=== PATIENT | female | born 1940 | race Caucasian/White ===

== ENCOUNTER 2023-11-30 13:30 | Outpatient (AMB) | payer MEDICARE, SELFPAY ==
[2023-11-30 13:31] VITALS: BP 136/68; PULSE 73; O2SAT 98; BMI 27.1
--- NOTE | 2023-11-30 13:31 | HO.NEPHOV ---
HPI HPI Comments History of Present Illness Details 83 yr old woman with HTN And DM h/o CVA with left sided weakness h/o Gout PFSH Surgical History S/P removal of cervix H/O carotid endarterectomy Family History Sister Diabetes mellitus Brother Hiatal hernia Sister Edema Father Myocardial infarction Social History Patient Tobacco Use Status: Former Tobacco user Vital Signs 11/30/23 13:31 Height 5 ft 2 in Weight 148 lb 2 oz BMI 27.1 BP 136/68 Blood Pressure Location Lt brachial Position Sitting Pulse 73 Pulse Source Pulse Oximeter Pulse Oximetry (%) 98 Oxygen Delivery Method Room Air Physical Exam Vital Signs: Last Vital Signs Pulse 73 11/30/23 13:31 BP 136/68 11/30/23 13:31 Pulse Ox 98 11/30/23 13:31 Oxygen Delivery Method Room Air 11/30/23 13:31 BMI result Body Mass Index 27.1 Const General: comfortable Nutritional Appearance: well nourished Orientation/consciousness: patient oriented x3 HEENT Head: No normal to inspection Mouth: moist mucous membranes Neck Neck: Yes supple and Yes no JVD Resp Auscultation: clear to auscultation bilaterally, no rales and rub present Cardio Jugular venous distension: no JVD Palpation: no palpable S3 and no palpable S4 Heart sounds: no rubs GI Palpation (GI): Soft to palpation and nontender Percussion: No Fluid wave present General: Yes no CVA tenderness Back/Spine/Pelvis Back: no CVA tenderness Skin General skin exam: no rashes or lesions noted Neuro General: patient oriented x3 Extrem General: Yes no pedal edema and No clubbing Assessment & Plan Assessment & Plan (1) CKD (chronic kidney disease): Code(s): N18.9 - Chronic kidney disease, unspecified Plan CKD 3 in a setting of HTN And DM Baseline creatinine is around 1.9 and has remained stable BP is well controlled Maintian BP < 130/80 and A1C < 7% Continue to avoid nephrotoxins including NSAIDS As for gout, stay on low purine diet Can use prednisone during acute attacks. ( Did not tolerate Colchicine in the past) Orders: Orders Comprehensive Met. Panel 1 Week N18.9 - Chronic kidney disease, unspecified Coding Level of Care Code Est Pt Level 4 (84263) Diagnoses CKD (chronic kidney disease) N18.9 Results Reviewed Results Reviewed: Labs pending Nephrology Results: No Data to Display
== END 2023-11-30 13:50 | disposition home or self-care (01) ==
PROVIDERS: PCP Family Medicine; Visit Provider Internal Medicine Hypertension Specialist
DX: N18.9 Chronic kidney disease, unspecified (principal)
CPT/HCPCS: 99214

== ENCOUNTER → 2023-11-30 13:30 | Outpatient (BNVA) | payer MEDICARE, SELFPAY | PROVIDERS: PCP Family Medicine; Visit Provider Internal Medicine Hypertension Specialist | DX: E11.22 Type 2 diabetes mellitus with diabetic chronic kidney disease (principal); I12.9 Hypertensive chronic kidney disease with stage 1 through stage 4 chronic kidney disease, or unspecified chronic kidney disease; N18.9 Chronic kidney disease, unspecified | CPT/HCPCS: 99212 ==

== ENCOUNTER 2024-05-01 10:31 | Outpatient (AMB) | payer MEDICARE, SELFPAY ==
--- NOTE | 2024-05-01 10:35 | HO.NEPHOV ---
Vital Signs 05/01/24 10:36 05/01/24 10:47 Height 5 ft 2 in Weight 148 lb BMI 27.1 BP 148/74 H 130/80 Blood Pressure Location Rt brachial Rt brachial Position Sitting Sitting Pulse 69 Pulse Source Pulse Oximeter Pulse Oximetry (%) 100 Oxygen Delivery Method Room Air Intake Visit Reasons: / APRIL/ Unable to reach Knit Goods Mender Required: No Accompanied by: Daughter Allergies amitriptyline Allergy (Verified 05/01/24 10:39) Rash atorvastatin [From Lipitor] Allergy (Verified 05/01/24 10:39) Rash colchicine Allergy (Verified 05/01/24 10:39) Diarrhea hydrochlorothiazide Allergy (Verified 05/01/24 10:39) Rash NSAIDS (Non-Steroidal Anti-Inflamma Allergy (Verified 05/01/24 10:39) Unknown rosuvastatin [From Crestor] Allergy (Verified 05/01/24 10:39) Rash sulfamethoxazole [From Bactrim] Allergy (Verified 05/01/24 10:39) Rash trimethoprim [From Bactrim] Allergy (Verified 05/01/24 10:39) Rash HPI Comments Details: 83 yr old woman with HTN and DM h/o CVA with left sided weakness h/o Gout 05/01/2024. Overall doing well. No new issues today. Accompanied by her daughter PFSH Surgical History S/P removal of cervix H/O carotid endarterectomy Family History Sister Diabetes mellitus Brother Hiatal hernia Sister Edema Father Myocardial infarction Social History Patient Tobacco Use Status: Former Tobacco user Physical Exam Vital Signs: Last Vital Signs Pulse 69 05/01/24 10:36 BP 130/80 05/01/24 10:47 Pulse Ox 100 05/01/24 10:36 Oxygen Delivery Method Room Air 05/01/24 10:36 BMI result Body Mass Index 27.1 Const General: comfortable Nutritional Appearance: well nourished Orientation/consciousness: patient oriented x3 HEENT Head: No normal to inspection Mouth: moist mucous membranes Neck Neck: Yes supple and Yes no JVD Resp Auscultation: clear to auscultation bilaterally, no rales and rub present Cardio Jugular venous distension: no JVD Palpation: no palpable S3 and no palpable S4 Heart sounds: no rubs GI Palpation (GI): Soft to palpation and nontender Percussion: No Fluid wave present General: Yes no CVA tenderness Back/Spine/Pelvis Back: no CVA tenderness Skin General skin exam: no rashes or lesions noted Neuro General: patient oriented x3 Extrem General: Yes no pedal edema and No clubbing Results Reviewed Results Reviewed: Labs pending Nephrology Results: No Data to Display Assessment & Plan Assessment & Plan (1) CKD (chronic kidney disease): Code(s): N18.9 - Chronic kidney disease, unspecified Category: Medical Plan CKD 3 in a setting of HTN And DM Baseline creatinine was around 1.9 Repeat labs are not available. We will track down BP is well controlled Maintain BP < 130/80 and A1C < 7% Continue to avoid nephrotoxins including NSAIDS As for gout, stay on low purine diet Can use prednisone during acute attacks. ( Did not tolerate Colchicine in the past) Orders: Orders Basic Metabolic Panel Today N18.9 - Chronic kidney disease, unspecified Complete Blood Count Auto Diff Today N18.9 - Chronic kidney disease, unspecified Coding Level of Care Code Est Pt Level 4 (84602) Diagnoses CKD (chronic kidney disease) N18.9
[2024-05-01 10:36] VITALS: BP 148/74; PULSE 69; O2SAT 100; BMI 27.1
[2024-05-01 10:47] VITALS: BP 130/80
== END 2024-05-01 10:51 | disposition home or self-care (01) ==
PROVIDERS: PCP Family Medicine; Visit Provider Internal Medicine Hypertension Specialist
DX: N18.9 Chronic kidney disease, unspecified (principal)
CPT/HCPCS: 99214

== ENCOUNTER → 2024-05-01 10:31 | Outpatient (BNVA) | payer MEDICARE, SELFPAY | PROVIDERS: PCP Family Medicine; Visit Provider Internal Medicine Hypertension Specialist | DX: I12.9 Hypertensive chronic kidney disease with stage 1 through stage 4 chronic kidney disease, or unspecified chronic kidney disease (principal); E11.22 Type 2 diabetes mellitus with diabetic chronic kidney disease; N18.30 Chronic kidney disease, stage 3 unspecified | CPT/HCPCS: 99212 ==

== ENCOUNTER 2024-09-25 10:21 | Outpatient (AMB) | payer MEDICARE, SELFPAY ==
[2024-09-25 10:24] VITALS: BP 158/70; PULSE 66; O2SAT 99; BMI 27.4
--- NOTE | 2024-09-25 10:24 | HO.NEPHOV_ITS ---
Vital Signs 09/25/24 10:24 Height 5 ft 2 in Weight 150 lb BMI 27.4 BP 158/70 H Blood Pressure Location Rt brachial Position Sitting Pulse 66 Pulse Source Pulse Oximeter Pulse Oximetry (%) 99 Oxygen Delivery Method Room Air Intake Visit Reasons: Dec Follow up/ Conf User Interface Artist Required: No Accompanied by: Daughter Allergies amitriptyline Allergy (Verified 09/25/24 10:27) Rash atorvastatin [From Lipitor] Allergy (Verified 09/25/24 10:27) Rash colchicine Allergy (Verified 09/25/24 10:) Diarrhea hydrochlorothiazide Allergy (Verified 09/25/24 10:27) Rash NSAIDS (Non-Steroidal Anti-Inflamma Allergy (Verified 09/25/24 10:) Unknown rosuvastatin [From Crestor] Allergy (Verified 09/25/24 10:) Rash sulfamethoxazole [From Bactrim] Allergy (Verified 09/25/24 10:) Rash trimethoprim [From Bactrim] Allergy (Verified 09/25/24 10:) Rash Medication List - Last Reconciled 09/25/24 by Rashaad Marcelino MD allopurinol 150 mg PO .QOD amlodipine 10 mg PO DAILY aspirin 81 mg PO DAILY clopidogrel 75 mg PO DAILY ergocalciferol (vitamin D2) 1,250 mcg PO QWEEK evolocumab (Repatha Syringe) mg subcut ezetimibe 10 mg PO DAILY insulin aspart U-100 (Novolog FlexPen U-100 Insulin aspart) 8 units subcut DAILY insulin glargine (Lantus Solostar U-100 Insulin) units subcut levothyroxine 75 mcg PO DAILY lisinopril 10 mg PO DAILY metoprolol succinate ER 100 mg PO DAILY omega 2-tod-ohd-fish oil 1,000 (120-180) mg (Fish Oil) 1 cap PO TID HPI Comments Details: 83 yr old woman with HTN and DM h/o CVA with left sided weakness h/o Gout 05/01/2024. Overall doing well. No new issues today. Accompanied by her daughter 09/25/24 Home BP has been sub optimal Amlodipine increased to 10 mg MEtoprolol increased to 100mg and BP is still sub optimal PFSH Surgical History S/P removal of cervix H/O carotid endarterectomy Family History Sister Diabetes mellitus Brother Hiatal hernia Sister Edema Father Myocardial infarction Social History Patient Tobacco Use Status: Former Tobacco user Physical Exam Vital Signs: Last Vital Signs Pulse 66 09/25/24 10:24 BP 158/70 H 09/25/24 10:24 Pulse Ox 99 09/25/24 10:24 Oxygen Delivery Method Room Air 09/25/24 10:24 BMI result Body Mass Index 27.4 Comfortable Neck supple no JVD. Lungs entry equal no rales. Heart S1-S2 heard no gallop or rub. Abdomen soft nontender. Neuro alert awake oriented. No asterixis. Extremities no edema. Results Reviewed Nephrology Results: No Data to Display Assessment & Plan Assessment & Plan (1) CKD (chronic kidney disease): Code(s): N18.9 - Chronic kidney disease, unspecified Category: Medical Plan CKD 3 in a setting of HTN And DM Baseline creatinine was around 1.9 REpeat BMP ordered but not done BP is sub optimal Will obtain 24 hr ABPM before making further changes Maintain BP < 130/80 and A1C < 7% Stay on low salt diet Continue to avoid nephrotoxins including NSAIDS REcent A1C is 9 % Mild secondary hyperparathyroidism iPTH 110 pg/ml Shall watch Orders: Orders AMB 24 HR B/P Monitor PLACEMENT Today I10 - Essential (primary) hypertension Coding Level of Care Code Est Pt Level 4 (82745) Diagnoses CKD (chronic kidney disease) N18.9
== END 2024-09-25 10:51 | disposition home or self-care (01) ==
PROVIDERS: Visit Provider Internal Medicine Hypertension Specialist
DX: I12.9 Hypertensive chronic kidney disease with stage 1 through stage 4 chronic kidney disease, or unspecified chronic kidney disease (principal); E11.22 Type 2 diabetes mellitus with diabetic chronic kidney disease; N18.30 Chronic kidney disease, stage 3 unspecified
CPT/HCPCS: 99214

== ENCOUNTER → 2024-09-25 10:21 | Outpatient (BNVA) | payer MEDICARE, SELFPAY | PROVIDERS: Visit Provider Internal Medicine Hypertension Specialist | DX: I12.9 Hypertensive chronic kidney disease with stage 1 through stage 4 chronic kidney disease, or unspecified chronic kidney disease (principal); E11.22 Type 2 diabetes mellitus with diabetic chronic kidney disease; N18.30 Chronic kidney disease, stage 3 unspecified; I69.354 Hemiplegia and hemiparesis following cerebral infarction affecting left non-dominant side | CPT/HCPCS: 99212 ==

== ENCOUNTER → 2024-10-04 09:14 | Outpatient (BNVA) | payer MEDICARE, SELFPAY | PROVIDERS: PCP Physician Assistant; Visit Provider Internal Medicine Hypertension Specialist ==

== ENCOUNTER → 2024-10-04 09:14 | Outpatient (BNVA) | payer MEDICARE, SELFPAY | PROVIDERS: Visit Provider Internal Medicine Hypertension Specialist ==

== ENCOUNTER → 2024-10-05 10:12 | Outpatient (BNVA) | payer MEDICARE, SELFPAY | PROVIDERS: Visit Provider Internal Medicine Hypertension Specialist | DX: I10 Essential (primary) hypertension (principal) | CPT/HCPCS: 93786 ==

== ENCOUNTER 2024-10-10 10:40 | Outpatient (AMB) | payer MEDICARE, SELFPAY ==
[2024-10-10 10:43] VITALS: BP 164/60; PULSE 73; O2SAT 94; BMI 28.0
--- NOTE | 2024-10-10 10:43 | HO.NEPHOV ---
Vital Signs 10/10/24 10:43 Height 5 ft 2 in Weight 153 lb BMI 28.0 BP 164/60 H Blood Pressure Location Rt brachial Position Sitting Pulse 73 Pulse Source Pulse Oximeter Pulse Oximetry (%) 94 Oxygen Delivery Method Room Air Intake Visit Reasons: 24H BPM Interpretation/ Conf Vp Site Required: No Accompanied by: Daughter Allergies amitriptyline Allergy (Verified 10/10/24 10:45) Rash atorvastatin [From Lipitor] Allergy (Verified 10/10/24 10:45) Rash colchicine Allergy (Verified 10/10/24 10:45) Diarrhea hydrochlorothiazide Allergy (Verified 10/10/24 10:45) Rash NSAIDS (Non-Steroidal Anti-Inflamma Allergy (Verified 10/10/24 10:45) Unknown rosuvastatin [From Crestor] Allergy (Verified 10/10/24 10:45) Rash sulfamethoxazole [From Bactrim] Allergy (Verified 10/10/24 10:45) Rash trimethoprim [From Bactrim] Allergy (Verified 10/10/24 10:45) Rash Medication List - Last Reconciled 10/10/24 by Rashaad Marcelino MD allopurinol 150 mg PO .QOD amlodipine 10 mg PO DAILY aspirin 81 mg PO DAILY clopidogrel 75 mg PO DAILY ergocalciferol (vitamin D2) 1,250 mcg PO QWEEK evolocumab (Repatha Syringe) mg subcut ezetimibe 10 mg PO DAILY insulin aspart U-100 (Novolog FlexPen U-100 Insulin aspart) 8 units subcut DAILY insulin glargine (Lantus Solostar U-100 Insulin) units subcut levothyroxine 75 mcg PO DAILY lisinopril 10 mg PO DAILY metoprolol succinate ER 100 mg PO DAILY omega 7-xga-trx-fish oil 1,000 (120-180) mg (Fish Oil) 1 cap PO TID HPI Comments Details: 83 yr old woman with HTN and DM h/o CVA with left sided weakness h/o Gout 05/01/2024. Overall doing well. No new issues today. Accompanied by her daughter 09/25/24 Home BP has been sub optimal Amlodipine increased to 10 mg MEtoprolol increased to 100mg and BP is still sub optimal 10/10/24 Underwent ABPM [facility] Surgical History S/P removal of cervix H/O carotid endarterectomy Family History Sister Diabetes mellitus Brother Hiatal hernia Sister Edema Father Myocardial infarction Social History Patient Tobacco Use Status: Former Tobacco user Physical Exam Vital Signs: Last Vital Signs Pulse 73 10/10/24 10:43 BP 164/60 H 10/10/24 10:43 Pulse Ox 94 10/10/24 10:43 Oxygen Delivery Method Room Air 10/10/24 10:43 BMI result Body Mass Index 28.0 Comfortable Neck supple no JVD. Lungs entry equal no rales. Heart S1-S2 heard no gallop or rub. Abdomen soft nontender. Neuro alert awake oriented. No asterixis. Extremities no edema. Office Procedures 24 B/P Monitor Interpretation Details: Suboptimal ambulatory blood pressure readings with nocturnal dipping. CPT: 74980 24 Hour Blood Pressure Monitor Reading Procedure code (CPT) selection complete Results Reviewed Nephrology Results: No Data to Display Assessment & Plan Assessment & Plan (1) CKD (chronic kidney disease): Code(s): N18.9 - Chronic kidney disease, unspecified Category: Medical Plan CKD 3 in a setting of HTN And DM Baseline creatinine was around 1.9 BP is sub optimal Based on 24 hour ABP M ,ADD HYDRALAZINE 25 mg TID Would not increase lisinopril at this time given her renal function. With a history of gout I would avoid using diuretics for now. Maintain BP < 130/80 and A1C < 7% Stay on low salt diet REcent A1C is 9 % Mild secondary hyperparathyroidism iPTH 110 pg/ml Shall watch Orders: Orders Basic Metabolic Panel 4 Weeks N18.9 - Chronic kidney disease, unspecified AMB 24 HR B/P Monitor INTERPRETATION Today I10 - Essential (primary) hypertension Medications: New hydralazine 25 mg PO TID 90 tabs 2RF Coding Level of Care Code Est Pt Level 4 (07466) Diagnoses CKD (chronic kidney disease) N18.9 CPT Codes - CPT: 06774 24 Hour Blood Pressure Monitor Reading ([id number])
== END 2024-10-10 11:06 | disposition home or self-care (01) ==
PROVIDERS: Visit Provider Internal Medicine Hypertension Specialist
DX: I12.9 Hypertensive chronic kidney disease with stage 1 through stage 4 chronic kidney disease, or unspecified chronic kidney disease (principal); E11.22 Type 2 diabetes mellitus with diabetic chronic kidney disease; N18.30 Chronic kidney disease, stage 3 unspecified
CPT/HCPCS: 93790; 99214

== ENCOUNTER → 2024-10-10 10:40 | Outpatient (BNVA) | payer MEDICARE, SELFPAY | PROVIDERS: Visit Provider Internal Medicine Hypertension Specialist | DX: E11.22 Type 2 diabetes mellitus with diabetic chronic kidney disease (principal); I12.9 Hypertensive chronic kidney disease with stage 1 through stage 4 chronic kidney disease, or unspecified chronic kidney disease; N18.9 Chronic kidney disease, unspecified | CPT/HCPCS: 99212 ==

== ENCOUNTER 2024-12-25 10:09 | Outpatient (AMB) | payer MEDICARE, SELFPAY ==
[2024-12-25 10:17] VITALS: BP 140/52; PULSE 55; O2SAT 95; BMI 27.4
--- NOTE | 2024-12-25 10:17 | HO.NEPHOV ---
Vital Signs 12/25/24 10:17 12/25/24 10:32 Height 5 ft 2 in Weight 150 lb BMI 27.4 BP 140/52 H 130/60 Blood Pressure Location Rt brachial Rt brachial Position Sitting Sitting Pulse 55 Pulse Source Pulse Oximeter Pulse Oximetry (%) 95 Oxygen Delivery Method Room Air Intake Visit Reasons: CKD/ Conf Home Service Demonstrator Required: No Accompanied by: Daughter Allergies amitriptyline Allergy (Verified 12/25/24 10:19) Rash atorvastatin [From Lipitor] Allergy (Verified 12/25/24 10:19) Rash colchicine Allergy (Verified 12/25/24 10:19) Diarrhea hydrochlorothiazide Allergy (Verified 12/25/24 10:19) Rash NSAIDS (Non-Steroidal Anti-Inflamma Allergy (Verified 12/25/24 10:19) Unknown rosuvastatin [From Crestor] Allergy (Verified 12/25/24 10:19) Rash sulfamethoxazole [From Bactrim] Allergy (Verified 12/25/24 10:19) Rash trimethoprim [From Bactrim] Allergy (Verified 12/25/24 10:19) Rash Medication List - Last Reconciled 12/25/24 by Rashaad Marcelino MD allopurinol 150 mg PO .QOD amlodipine 10 mg PO DAILY aspirin 81 mg PO DAILY clopidogrel 75 mg PO DAILY ergocalciferol (vitamin D2) 1,250 mcg PO QWEEK evolocumab (Repatha Syringe) mg subcut ezetimibe 10 mg PO DAILY hydralazine 25 mg PO TID insulin aspart U-100 (Novolog FlexPen U-100 Insulin aspart) 8 units subcut DAILY insulin glargine (Lantus Solostar U-100 Insulin) units subcut levothyroxine 75 mcg PO DAILY lisinopril 10 mg PO DAILY metoprolol succinate ER 100 mg PO DAILY omega 1-ufm-qdj-fish oil 1,000 (120-180) mg (Fish Oil) 1 cap PO TID HPI Comments Details: 83 yr old woman with HTN and DM h/o CVA with left sided weakness h/o Gout 05/01/2024. Overall doing well. No new issues today. Accompanied by her daughter 09/25/24 Home BP has been sub optimal Amlodipine increased to 10 mg ;MEtoprolol increased to 100mg and BP is still sub optimal 10/10/24 Underwent ABPM 12/25/2024. Overall blood pressure well controlled tolerating hydralazine PFSH Surgical History S/P removal of cervix H/O carotid endarterectomy Family History Sister Diabetes mellitus Brother Hiatal hernia Sister Edema Father Myocardial infarction Social History Patient Tobacco Use Status: Former Tobacco user Physical Exam Vital Signs: Last Vital Signs Pulse 55 12/25/24 10:17 BP 130/60 12/25/24 10:32 Pulse Ox 95 12/25/24 10:17 Oxygen Delivery Method Room Air 12/25/24 10:17 BMI result Body Mass Index 27.4 Comfortable Neck supple no JVD. Lungs entry equal no rales. Heart S1-S2 heard no gallop or rub. Abdomen soft nontender. Neuro alert awake oriented. No asterixis. Extremities no edema. Results Reviewed Results Reviewed: Recent creatinine was 2.0 in November 2024 Nephrology Results: No Data to Display Assessment & Plan Assessment & Plan (1) CKD (chronic kidney disease): Code(s): N18.9 - Chronic kidney disease, unspecified Category: Medical Plan CKD 3 in a setting of HTN And DM Baseline creatinine was around 1.9 to 2.0 Based on 24 hour ABP M ,ADDED HYDRALAZINE 25 mg TID BP is better controlled Would not increase lisinopril at this time given her renal function. With a history of gout I would avoid using diuretics for now. Maintain BP < 130/80 and A1C < 7% Stay on low salt diet Recent A1C is 9 % Mild secondary hyperparathyroidism iPTH 110 pg/ml Shall watch Orders: Orders Basic Metabolic Panel 3 Months N18.9 - Chronic kidney disease, unspecified Parathyroid Hormone Intact 3 Months N18.9 - Chronic kidney disease, unspecified Complete Blood Count no Diff 3 Months N18.9 - Chronic kidney disease, unspecified Medications: Refilled hydralazine 25 mg PO TID 270 tabs 2RF Coding Level of Care Code Est Pt Level 4 (50026) Diagnoses CKD (chronic kidney disease) N18.9
[2024-12-25 10:32] VITALS: BP 130/60
--- OUTSIDE RECORDS SUMMARY | 2024-12-25 11:39 | XMS_ITS | Clinical Summary ---
Author Organization [facility] Address [facility] [place] [address] Care Team Providers Care Point Of Care Specialist Name Role Phone Unknown Primary Care Provider Unavailabl e Social History Tobacco Use Types Packs/Day Years Used Date Smoking Tobacco: Never Assessed Sex and Gender Information Value Date Recorded Sex Assigned at Not on file Gender Identity Not on file Sexual Orientation Not on file Plan of Treatment Health Maintenance Due Date Last Done Comments Tetanus/Diphtheria/Pertussis Vaccines (1 - Tdap) 03/11 Pneumoccocal Vaccine: 50+ (1 of 1 - PCV) 1992 Zoster vaccine (1 of 2) 1992 Advance Directive 1997 Bone Density Scan 2007 RSV Vaccine (1 - 1-dose 75+ series) 2017 Covid-19 Vaccine (1 - 2023- season) 2024 Influenza (Flu) vaccine (1 o f 1 - Influenza standard series) 06/25/2024 Care Teams Point Of Care Specialist Relationship Specialty Start Date End Date Unknown None PCP - General 09/16/10
--- OUTSIDE RECORDS SUMMARY | 2024-12-25 11:39 | XMS_ITS | Continuity of Care Document ---
Author Organization [facility] [place] [address] [address]- [facility] Name Relationship Address Phone JOHANNE FRANKS child Unknown Unavailable GAGANDEEP ORTIZ spouse Unknown Unavailable Care Team Providers Care Energy Scheduler Name Role Phone Gordy Tamayo Primary Care Physician [place] [facility] [place]06[place] - 12/06/24 [facility] [address] [address]- Attending Physician: Jillian Galvez Admitting Physician: iJllian Galvez Referring Physician: AdmtrJillian Encounter Type: Triage Allergies, Adverse Reactions, Alerts Substance Criticality Severity Reaction Reaction Severity Status amoxicillin Active amitriptyline Rash Active Crestor Rash Active statins Rash Active Medications allopurinol 100 mg oral tablet 100 mg, 1, tablet, By Mouth, Every Wednesday, and Wednesday, Refills 0, Maintenance, 11/06/24 3:22:00 PM EST, Partial fill upon patient request if the prescription is for a schedule II opioid drug. Start Date: 11/06/24 Status: Ordered Repeat number: 1 Amlodipine = 10 mg, By Mouth, Daily, 0 Refills, Maintenance, 10/16/19 8:17:00 AM EST Start Date: 10/16/19 Status: Ordered Repeat number: 1 aspirin 81 mg oral tablet 1 tablet = 81 mg, By Mouth, Daily, 0 Refills, Maintenance, 11/03/19 11:42:00 AM EST Start Date: 11/03/19 Status: Ordered Repeat number: 1 clopidogrel 75 mg oral tablet 75 mg, 1, tablet, By Mouth, Daily, # 30 tablet, Refills 0, Maintenance, 10/16/19 8:18:00 AM EST Start Date: 10/16/19 Status: Ordered Quantity: 30.0 Unit: tablet Repeat number: 1 ezetimibe 10 mg oral tablet 1 tablet = 10 mg, By Mouth, Daily, # 90 tablet, 3 Refills, Maintenance, 09/27/24 8:41:00 AM EST, Tablet, [id number], Partial fill upon patient request if the prescription is for a schedule II opioid drug., 160, cm, 04/15/23 9:26:00 EDT, Height Start Date: 09/27/24 Status: Ordered Quantity: 90.0 Unit: tablet Repeat number: 4 Fish Oil = 1,000 mg, By Mouth, 2 times a day, 0 Refills, Maintenance, 12/20/15 3:23:42 PM EST Start Date: 12/20/15 Status: Ordered Repeat number: 1 hydrALAZINE = 25 mg, 3 times a day, 0 Refills, Maintenance, 11/07/24 10:51:00 AM EST, Partial fill upon patient request if the prescription is for a schedule II opioid drug. Start Date: 11/07/24 Status: Ordered Repeat number: 1 Lantus Inj = 28 units, Subcutaneous Infusion, Daily, 0 Refills, Maintenance, 12/20/15 3:36:17 PM EST Start Date: 12/20/15 Status: Ordered Repeat number: 1 Levothyroxine = 75 mcg, By Mouth, Daily, 0 Refills, Maintenance, 12/20/15 3:20:42 PM EST Start Date: 12/20/15 Status: Ordered Repeat number: 1 Lisinopril = 10 mg, By Mouth, Daily, 0 Refills, Maintenance, 12/20/15 3:21:12 PM EST Start Date: 12/20/15 Status: Ordered Repeat number: 1 metoprolol 100 mg oral tablet, extended release 100 mg, 1, tablet, By Mouth, Daily, # 30 tablet, Refills 0, Maintenance, 11/06/24 3:22:00 PM EST, Partial fill upon patient request if the prescription is for a schedule II opioid drug. Start Date: 11/06/24 Status: Ordered Quantity: 30.0 Unit: tablet Repeat number: 1 Repatha Prefilled Syringe 140 mg/mL subcutaneous solution See Instructions, INJECT 140MG SUBCUTANEOUSLY EVERY 14 DAYS. ROTATE INJECTION SITES, # 6 mL, 11 Refills, Maintenance, 09/04/24 4:46:00 PM EST, [facility], 160, cm, 04/15/23 9:26:00 EDT, Height Start Date: 09/04/24 Status: Ordered Quantity: 6.0 Unit: mL Repeat number: 12 Vitamin B12 Daily, 0 Refills, Maintenance, 04/02/22 8:32:00 AM EDT, Partial fill upon patient request if the prescription is for a schedule II opioid drug. Start Date: 04/02/22 Status: Ordered Repeat number: 1 Problem List Condition Confirmation Course Effective Dates Status H ealth Status Informant Atherosclerosis of aorta Confirmed Active Carotid artery stenosis Confirmed Active CVA (cerebral vascular accident) Confirmed Active CKD (chronic kidney disease) Confirmed Active Claudication Confirmed Active CAD (coronary artery disease), Moderately severe mid LAD stenosis-IFR 0.47 which is grossly POSITIVE for Confirmed Active Diabetes, insulin Confirmed Active Keratoderma Confirmed Active HLD (hyperlipidemia) Confirmed Active HTN (hypertension) Confirmed Active Hypothyroidism Confirmed Active Megaloblastic anemia due to B12 deficiency Confirmed Active Peptic ulcer disease Confirmed Active PAD (peripheral artery disease) Confirmed Active Spinal stenosis Confirmed Active 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 Active Social History Social History Type Response Smoking Status Never smoker entered on: 12/20/15 Sex Sex Representation Female (finding) Laboratory * Event Display: Non [facility] Lab Results Authored Date: Patient Care team information Care Team Personnel Name: Gordy Tamayo Position: Reference Physician Member Role: PCP Address: [address] [place] [address] Telecom: Name: Mulugeta Steinberg RN Position: [facility] ED RN W/OE and Tasks Member Role: Primary Care Nurse Name: Kalyn Kapadia RN Position: [facility] CARI Nurse Member Role: Primary Care Nurse Care Team Related Persons Name: JOHANNE FRANKS Name: GAGANDEEP ORTIZ Insurance Providers Guarantor name: JUAN JOSÉ DIANA [employer] Sales Plan Information #: 1 Payer: [employer] ADV HMO Member Number: NA Policy Number: NA Group Number: NA
--- OUTSIDE RECORDS SUMMARY | 2024-12-25 11:39 | XMS_ITS | Encounter Summary ---
Author Organization [facility] Address [address] [facility] [address] [place] [address] Phone Care Team Providers Care Densitometrist Name Role Phone Jeison Enciso MD Primary Care Provider [phone] Encounter Details Date Type Department Care Team (Late st Contact Info) Description 11/08/2023 Office Communication [facility] [address] [place] [address] Joaquin Newman MD [address] [facility] [address] [place] [address] Social History Tobacco Use Types Packs/Day Years Used Date Smoking Tobacco: Former Smokeless Tobacco: Never Alcohol Use Standard Drinks/Week Comments No 0 (1 standard drink = 0.6 oz pur e alcohol) Comments Unknown Sex and Gender Information Value Date Recorded Sex Assigned at Not on file Legal Sex Female 4:57 PM EST Gender Identity Not on file Sexual Orientation Not on file documented as of this encounter Miscellaneous Notes * Telephone Encounter - Olga Arellano - 11/09/2023 9:22 AM EST Patient following up with Dr Marcelino * Telephone Encounter - Joaquin Newman MD - 11/08/2023 8:54 PM EST Offer appt with me in 2-3 months documented in this encounter Plan of Treatment Not on file documented as of this encounter Visit Diagnoses Not on filedocumented in this encounter Care Teams Densitometrist Relationship Specialty Start Date End Date Jeison Enciso MD [address] [place] [address] PCP - General 11/04/20 documented as of this encounter
--- OUTSIDE RECORDS SUMMARY | 2024-12-25 11:40 | XMS_ITS | Clinical Summary ---
Author Organization [facility] Address [address] [place] [address] Phone Care Team Providers Care Dance Critic Name Role Phone Jeison Enciso MD Primary Care Provider [phone] Allergies Active Allergy Reactions Criticality Noted Date Comments Amitriptyline Other (see comments) 06/16/2020 Amoxicillin 06/16/2020 Atorvastatin Other (see comments) 01/29/2022 Hydrochlorothiazide Other (see comments) 2021 Rosuvastatin Rash,Other (see comments) Low 01/25/20 Statins Rash Low 01/24/2022 Medications clopidogrel (PLAVIX) 75 MG tablet Take 75 mg by mouth 1 (one) time each day 12/02/2021 Active Repatha 140 MG/ML solution prefilled syringe 01/16/2022 Active Lantus SoloStar 100 UNIT/ML injection 54 Units 2 (two) times a day 54 units in morning 15 units nightly 12/22/2021 Active Euthyrox 88 MCG tablet Take 88 mcg by mouth every morning 01/26/2022 Active metFORMIN (GLUCOPHAGE) 500 MG tablet Take 500 mg by mouth in the morning and 500 mg in the evening. 11/17/2021 Active Empire-3 1000 MG capsule Take 1 capsule by mouth daily Active metoprolol succinate XL (TOPROL XL) 25 MG 24 hr tablet Take 1 tablet by mouth 1 (one) time each day 06/08/2020 Active aspirin (ST CRISTINA) 81 MG EC tablet Take 81 mg by mouth in the morning. Active allopurinol (ZYLOPRIM) 100 MG tablet 07/31/2022 Active levothyroxine (SYNTHROID, LEVOTHROID) 75 MCG tablet Take 1 tablet by mouth 1 (one) time each day 07/31/2022 Active Dulaglutide 0.75 MG/0.5ML solution pen-injector Inject under the skin Active lisinopril 10 MG tablet Take 0.5 tablets (5 mg total) by mouth 1 (one) time each day 30 tablet 2 07/22/2023 Active Active Problems Problem Noted Date Diagnosed Date Chronic kidney disease 01/29/2022 Acquired hypothyroidism 01/24/2022 Overview (03/04/2022): Last Assessment & Plan: There are no TSH levels documented in either [employer] or [facility] system. Discussed with on-call endocrinology who had access to [place] medical charts. There he did find that she last received a 90-day supply in July. Vitals and mental status are excellent. Upon that her interview with her today with her improved mental status, turns out she has had a hoarse voice, is losing her hair, and gaining weight with much heaviness noted in her face. These are likely all symptoms of her untreated hypothyroidism. Will start her on 50 mcg daily of levothyroxine to avoid overstimulation of her cardiac status By end of week could advance to her usual 88 mcg dose Follow-up with PCP and/or endocrinology as needed We will likely arrange visiting nurse to assist with medication teaching as well as help coming up with a plan for reliable administration and storage of medications. Benign essential hypertension 01/24/2022 Overview (03/04/2022): Last Assessment & Plan: Currently blood pressures are adequately controlled, so will not resume her home regimen at this time. Can slowly abdomen as blood pressures dictate. Cerebrovascular accident 01/24/2022 Overview (03/04/2022): Last Assessment & Plan: She did come in with a left hemiparesis, though that seems to have resolved. Her initial CT of the head and CT angio were nondiagnostic. Neurology was consulted, and they recommended further MRI and EEG. Continue aspirin and plavix For now there is no indication for anticoagulation is A. fib has not been identified We will continue telemetry Follow-up results of MRI and EEG Speech and physical therapy evaluations and treatment as appropriate Seizure 01/24/2022 Overview (03/04/2022): Last Assessment & Plan: Had one 30 second tonic-clonic seizure while in the ER. It broke easily with a low dose of IV lorazepam. She then continued to be in a postictal state or possibly metabolic encephalopathy is secondary to her medication. For now we will continue the Keppra at 500mg twice daily (renally dosed) Neurology should be consulted prior to discharge as it is possible she will not require ongoing antiepileptic medication Immunizations Name Administration Dates Next Due Influenza Split High Dose Preservative Free IM 0 07/09/2016,07/24/2015 Family History Medical History Relation Comments Hypertension Father myocardial infar ction Diabetes Sibling Relation Status Comments Father Mother Sibling Social History Tobacco Use Types Packs/Day Years Used Date Smoking Tobacco: Former Smokeless Tobacco: Never Tobacco Cessation:Counseling Given: Not Answered Alcohol Use Standard Drinks/Week Comments No 0 (1 standard drink = 0.6 oz pur e alcohol) Comments Unknown Sex and Gender Information Value Date Recorded Sex Assigned at Not on file Legal Sex Female 4:57 PM EST Gender Identity Not on file Sexual Orientation Not on file Last Filed Vital Signs Vital Sign Reading Time Taken Comments Blood Pressure 128/65 07/22/2023 12:29 PM EDT Pulse 66 07/22/2023 12:29 PM EDT Temperature - - Respiratory Rate - - Oxygen Saturation 97% 07/22/2023 12:29 PM EDT Inhaled Oxygen Concentration - - Weight 67.4 kg (148 lb 9.6 oz) 07/22/2023 12:29 PM EDT Height - - Body Mass Index - - Plan of Treatment Health Maintenance Due Date Last Done Comments Pneumococcal Vaccine: 65+ Years (1 of 2 - PCV) 1946 Influenza Vaccine (#1) 2024 6, 07/09/2016, 07/24/2015 Hepatitis B Vaccine Aged Out No longe r eligible based on patient's age to complete this topic Insurance [facility] Care Teams Dance Critic Relationship Specialty Start Date End Date Jeison Enciso MD [address] [place] [phone] PCP - General 11/04/20
== END 2024-12-25 11:07 | disposition home or self-care (01) ==
PROVIDERS: Visit Provider Internal Medicine Hypertension Specialist
DX: N18.9 Chronic kidney disease, unspecified (principal)
CPT/HCPCS: 99214

== ENCOUNTER → 2024-12-25 10:09 | Outpatient (BNVA) | payer MEDICARE, SELFPAY | PROVIDERS: Visit Provider Internal Medicine Hypertension Specialist | DX: N18.9 Chronic kidney disease, unspecified (principal) | CPT/HCPCS: 99212 ==

== ENCOUNTER 2025-05-21 14:49 | Outpatient (AMB) | payer MEDICARE, SELFPAY ==
[2025-05-21 15:00] VITALS: BP 120/62; PULSE 65; O2SAT 99; BMI 26.3
--- NOTE | 2025-05-21 15:00 | HO.NEPHOV_ITS ---
Vital Signs 05/21/25 15:00 Height 5 ft 2 in Weight 144 lb BMI 26.3 BP 120/62 Blood Pressure Location Rt brachial Position Sitting Pulse 65 Pulse Source Pulse Oximeter Pulse Oximetry (%) 99 Oxygen Delivery Method Room Air Intake Visit Reasons: 4 MO FU-[facility] Horticulture Teacher Required: No Accompanied by: Daughter Allergies amitriptyline Allergy (Verified 05/21/25 15:01) Rash atorvastatin (From Lipitor) Allergy (Verified 05/21/25 15:01) Rash colchicine Allergy (Verified 05/21/25 15:01) Diarrhea hydrochlorothiazide Allergy (Verified 05/21/25 15:01) Rash NSAIDS (Non-Steroidal Anti-Inflamma Allergy (Verified 05/21/25 15:01) Unknown rosuvastatin (From Crestor) Allergy (Verified 05/21/25 15:01) Rash sulfamethoxazole (From Bactrim) Allergy (Verified 05/21/25 15:01) Rash trimethoprim (From Bactrim) Allergy (Verified 05/21/25 15:01) Rash HPI Comments Details: 83 yr old woman with HTN and DM h/o CVA with left sided weakness h/o Gout 05/01/2024. Overall doing well. No new issues today. Accompanied by her daughter 09/25/24 Home BP has been sub optimal Amlodipine increased to 10 mg ;MEtoprolol increased to 100mg and BP is still sub optimal 10/10/24 Underwent ABPM 12/25/2024. Overall blood pressure well controlled tolerating hydralazine 05/21/2025. Overall she is doing well no new complaints. Compliant with her medications. [facility] Surgical History S/P removal of cervix H/O carotid endarterectomy Family History Sister Diabetes mellitus Brother Hiatal hernia Sister Edema Father Myocardial infarction Social History Patient Tobacco Use Status: Former Tobacco user Physical Exam Vital Signs: Last Vital Signs Pulse 65 05/21/25 15:00 BP 120/62 05/21/25 15:00 Pulse Ox 99 05/21/25 15:00 Oxygen Delivery Method Room Air 05/21/25 15:00 BMI result Body Mass Index 26.3 Comfortable Neck supple no JVD. Lungs entry equal no rales. Heart S1-S2 heard no gallop or rub. Abdomen soft nontender. Neuro alert awake oriented. No asterixis. Extremities no edema. Results Reviewed Results Reviewed: cr 2.1 - March 2025 Assessment & Plan Assessment & Plan (1) CKD (chronic kidney disease): Code(s): N18.9 - Chronic kidney disease, unspecified Category: Medical Plan CKD 3 in a setting of HTN And DM Baseline creatinine was around 1.9 to 2.1 Based on 24 hour ABP M ,ADDED HYDRALAZINE 25 mg TID BP is better controlled Would not increase lisinopril at this time given her renal function. With a history of gout I would avoid using diuretics for now. Maintain BP < 130/80 and A1C < 7% Stay on low salt diet Recent A1C is 9 % Mild secondary hyperparathyroidism iPTH 110 pg/ml Shall watch Orders: Orders Basic Metabolic Panel 6 Months N18.9 - Chronic kidney disease, unspecified Complete Blood Count no Diff 6 Months N18.9 - Chronic kidney disease, unspecified Coding Level of Care Code Est Pt Level 4 (62009) Diagnoses CKD (chronic kidney disease) N18.9
--- OUTSIDE RECORDS SUMMARY | 2025-05-21 15:22 | XMS_ITS | Clinical Summary ---
Author Organization [facility] Address [address] [place] [address] Phone Care Team Providers Care Investigations Consultant Name Role Phone Jeison Enciso MD Primary Care Provider [phone] Allergies Active Allergy Reactions Criticality Noted Date [...] 500 mg in the evening. 11/17/2021 Active Barco-3 1000 MG capsule Take 1 capsule by [...] are no TSH levels documented in either [employer] or [place] [facility] system. Discussed with on-call endocrinology who had access to [place] medical charts. There he did find that [...] will not require ongoing antiepileptic medication Immunizations Immunization Administration Dates Next Due Influenza Split High [...] Due Date Last Done Comments Pneumococcal Vaccine: 50+ Years (1 of 2 - PCV) 1959 Influenza Vaccine (#1) 2025 6, 07/09/2016, 07/24/2015 Hepatitis B Vaccine Aged Out No longe r eligible based on patient's age to complete this topic Insurance [facility] Care Teams Investigations Consultant Relationship Specialty Start Date End Date Jeison Enciso MD [address] [place] [phone] PCP - General 11/04/20
--- OUTSIDE RECORDS SUMMARY | 2025-05-21 15:22 | XMS_ITS | Encounter Summary ---
Author Organization [facility] Address [address] [place] [phone] Phone Care Team Providers Care Experimental Aircraft Mechanic Name Role Phone Jeison Enciso MD Primary Care Provider [phone] Puja Nettles NP Primary Care Provider Encounter Details Date Type Department Care Team (Late st Contact Info) Description 07/12/2018 Procedure Pass [facility], [address] [address] Social History Tobacco Use Types Packs/Day Years Used Date Smoking Tobacco: Never Assessed Comments Unknown Sex and Gender Information Value Date Recorded Sex Assigned at Not on file Legal Sex Female 10:11 PM EDT Gender Identity Not on file Sexual Orientation Not on file documented as of this encounter Plan of Treatment Not on file documented as of this encounter Visit Diagnoses Not on filedocumented in this encounter Care Teams Experimental Aircraft Mechanic Relationship Specialty Start Date End Date Jeison Enciso MD [email or web address] PCP - General 10/28/17 07/22/18 Puja Nettles NP [address] [place] [phone] [email or web address] PCP - General Family Medicine 07/23/18 documented as of this encounter Additional Source Comments The information contained in this document represents components of the legal health record. It is not the complete legal health record.[facility]
--- OUTSIDE RECORDS SUMMARY | 2025-05-21 15:24 | XMS_ITS | Data Portability ---
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, onychauxis second toe right foot jerskine Not available 01/23/2025 10:31:09 05/08/2025 05/08/2025 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, onychauxis second toe right foot jerskine Not available 05/08/2025 08:39:12 Plan of Treatment Reminders Order Date Submit Date Provider Last Modified By Organization Details Last Modified Time Details Appointments LAB Follow-Up 2024 06:50A M [facility] Lab Not available Not available Not available Follow Up, 2024 08:00A M NERIS ZENG PA-C Not available Not available Not available Routine Foot Care 15 2024 08:30A M Itz Rosas DPM Not available Not available Not available Wellness Visit 30 2025 10:30A M NERIS ZENG PA-C Not available Not available Not available Lab None recorded. Referral None recorded. Procedures None recorded. Surgeries None recorded. Imaging DEXA 2024 025 [facility], [address] [place], [address], 04/19/2025 13:59:35 Medication Orders allopurin ol 100 mg tablet 2024 025 [facility] [address] [place], [address], 01/18/2025 10:39:58 Lantus Solostar U-100 Insulin 100 unit/mL (3 mL) subcutane ous pen 2024 025 [facility] [address] [place], [address], 01/18/2025 10:39:15 Patient TargetsNo targets recorded. Patient Instructions Encounter Date Encounter Id Patient Instructions Last Modified By Organization Details Last Modified Time 01/23/2025 [id number] Patient to retur n in 9 weeks for foot care to reduce risk of complications associated with type 2 diabetes mellitus with peripheral vascular disease and chronic kidney disease. jerskine Not available 01/23/2025 10:32:03 05/08/2025 [id number] Patient to retur n in 9 weeks for foot care to reduce risk of complications associated with type 2 diabetes mellitus with peripheral vascular disease and chronic kidney disease. jerskine Not available 05/08/2025 08:39:12 Reason for Referral None Reported. Results Created Date Observation Date Name Description Value Unit Range Abnormal Flag Note LastModifiedBy Organization Detail LastModifiedTime 11/07/1911/09/2024 BASIC METAB OLIC PANEL glucose 97 mg/dL 70-100 Not Available [address], [address], 11/09/2024 09:23:37 11/07/1911/09/2024 BASIC METAB OLIC PANEL BUN 30 mg/dL 7-18 high Not Available [address], [address], 11/09/2024 09:23:37 11/07/19 25 11/09/2024 BASIC METAB OLIC PANEL creatinine 2.0 mg/dL 0.8-1. 3 high Not Available [address], [address], 11/09/2024 09:23:37 11/07/19 25 11/09/2024 BASIC METAB OLIC PANEL B/C 15.0 ratio Not Available [address], [address], 11/09/2024 09:23:37 11/07/19 25 11/09/2024 BASIC METAB OLIC PANEL GFR 24.5 mL/mi n abnormal >=60m L/min - Snow l or midly reduc ed <60mL /min- Decre ased kidne y funct ion <15mL /min - Kidne y failu re [facility] calcu lates estim ated Glome rular Filtr ation Rate (eGFR ) using the Chron ic Kidne y Disea se Epide miolo gy Colla borat ion (CKD- EPI) Equat ion (Tracey r et. al 2020) as recom rosibel d by the Natio nal Kidne y Found ation . eGFR is based on age, serum creat inine , and sex. CKD-E PI does not calcu late eGFR by race, does not apply to child jovanny (age <18 years ), and shoul d not be used in pregn yamilex. Not Available [address], [address], 11/09/2024 09:23:37 11/07/19 25 11/09/2024 BASIC METAB OLIC PANEL sodium 139 mmol/ L 136-14 5 Not Available [address], [address], 11/09/2024 09:23:37 11/07/19 25 11/09/2024 BASIC METAB OLIC PANEL potassium 5.1 mmol/ L 3.5-5. 1 Not Available [address], [address], 11/09/2024 09:23:37 11/07/19 25 11/09/2024 BASIC METAB OLIC PANEL chloride 103 mmol/ L 96-107 Not Available [address], [address], 11/09/2024 09:23:37 11/07/19 25 11/09/2024 BASIC METAB OLIC PANEL anion gap 10.7 5.0-15 .0 Not Available [address], [address], 11/09/2024 09:23:37 11/07/19 25 11/09/2024 BASIC METAB OLIC PANEL CO2 25 mmol/ L 21-32 Not Available [address], [address], 11/09/2024 09:23:37 11/07/19 25 11/09/2024 BASIC METAB OLIC PANEL calcium 9.5 mg/dL 8.5-10 .3 Not Available [address], [address], 11/09/2024 09:23:37 01/09/20 25 01/08/2025 CBC WBC 7.48 K/ L 3.98-1 0.04 Not Available [address], [address], 01/08/2025 09:57:25 01/09/20 25 01/08/2025 CBC RBC 4.06 M/ L 3.93-5 .22 Not Available [address], [address], 01/08/2025 09:57:25 01/09/20 25 01/08/2025 CBC HGB 13.0 g/dL 11.2-1 5.7 Not Available [address], [address], 01/08/2025 09:57:25 01/09/20 25 01/08/2025 CBC HCT 40.3 % 34.1-4 4.9 Not Available [address], [address], 01/08/2025 09:57:25 01/09/20 25 01/08/2025 CBC MCV 99.3 fL 79.4-9 4.8 high Not Available [address], [address], 01/08/2025 09:57:25 01/09/2001/08/2025 CBC MCH 32.0 pg 25.6-3 2.2 Not Available [address], [address], 01/08/2025 09:57:25 01/09/2001/08/2025 CBC MCHC 32.3 g/dL 32.2-3 5.5 Not Available [address], [address], 01/08/2025 09:57:25 01/09/2001/08/2025 CBC plt 394 K/ L 182-36 9 high Not Available [address], [address], 01/08/2025 09:57:25 01/09/2001/08/2025 CBC MPV 11.4 fL 9.4-12 .3 Not Available [address], [address], 01/08/2025 09:57:25 01/09/2001/08/2025 CBC neut% 68.5 % 34.0-7 1.1 Not Available [address], [address], 01/08/2025 09:57:25 01/09/2001/08/2025 CBC neut# 5.12 1.56-6 .13 Not Available [address], [address], 01/08/2025 09:57:25 01/09/2001/08/2025 CBC lymph % 17.2 % 19.3-5 1.7 low Not Available [address], [address], 01/08/2025 09:57:25 01/09/20 25 01/08/2025 CBC lymph # 1.29 K/ L 1.18-3 .74 Not Available [address], [address], 01/08/2025 09:57:25 01/09/20 25 01/08/2025 CBC mono% 9.0 % 4.7-12 .5 Not Available [address], [address], 01/08/2025 09:57:25 01/09/20 25 01/08/2025 CBC mono# 0.67 0.24-0 .56 high Not Available [address], [address], 01/08/2025 09:57:25 01/09/20 25 01/08/2025 CBC eo% 3.6 % 0.7-5. 8 Not Available [address], [address], 01/08/2025 09:57:25 01/09/20 25 01/08/2025 CBC eo# 0.27 0.04-0 .36 Not Available [address], [address], 01/08/2025 09:57:25 01/09/20 25 01/08/2025 CBC baso% 1.3 % 0.1-1. 2 high Not Available [address], [address], 01/08/2025 09:57:25 01/09/20 25 01/08/2025 CBC baso# 0.10 0.00-0 .08 high Not Available [address], [address], 01/08/2025 09:57:25 01/09/20 25 01/08/2025 CBC RDW-CV 12.5 % 11.7-1 4.4 Not Available [address], [address], 01/08/2025 09:57:25 01/09/20 25 01/08/2025 CBC Ig% 0.400 % 0.000- 1.500 Ig % >0.5 Indic ates possi ble Left Shift Not Available [address], [address], 01/08/2025 09:57:25 01/09/20 25 01/08/2025 CBC Ig# 0.030 0.000- 0.093 Not Available [address], [address], 01/08/2025 09:57:25 01/09/20 25 01/08/2025 CBC NRBC% 0.0 % 0.0-0. 2 Not Available [address], [address], 01/08/2025 09:57:25 01/09/20 25 01/08/2025 CBC NRBC# 0.000 0.000- 0.012 Not Available [address], [address], 01/08/2025 09:57:25 01/09/20 25 01/08/2025 PTH INTAC T PTH intact 199.5 pg/mL 9.6-66 .3 high Not Available [address], [address], 01/08/2025 11:33:15 01/09/20 25 01/08/2025 MICRO ALBUM IN/CR EATIN INE RATIO PANEL , URINE microalbumin 396.7 mg/L 1.3-20 .0 high VERD= Verif ied by Dilut ion. Not Available [address], [address], 01/08/2025 12:53:30 01/09/20 25 01/08/2025 MICRO ALBUM IN/CR EATIN INE RATIO PANEL , URINE creatinine urine 80.3 mg/dL 30.0-1 25.0 Not Available [address], [address], 01/08/2025 12:53:30 01/09/20 25 01/08/2025 MICRO ALBUM IN/CR EATIN INE RATIO PANEL , URINE microalb/cre at ratio 494.0 mg/g_ creat 0.0-29 .0 high Not Available [address], [address], 01/08/2025 12:53:30 01/09/20 25 01/08/2025 BASIC METAB OLIC PANEL glucose 104 mg/dL 70-100 high Not Available [address], [address], 01/08/2025 14:40:09 01/09/20 25 01/08/2025 BASIC METAB OLIC PANEL BUN 34 mg/dL 7-18 high Not Available [address], [address], 01/08/2025 14:40:09 01/09/20 25 01/08/2025 BASIC METAB OLIC PANEL creatinine 2.3 mg/dL 0.8-1. 3 high Not Available [address], [address], 01/08/2025 14:40:09 01/09/20 25 01/08/2025 BASIC METAB OLIC PANEL B/C 14.8 ratio Not Available [address], [address], 01/08/2025 14:40:09 01/09/20 25 01/08/2025 BASIC METAB OLIC PANEL GFR 20.7 mL/mi n abnormal >=60m L/min - Snow l or midly reduc ed <60mL /min- Decre ased kidne y funct ion <15mL /min - Kidne y failu re [facility] calcu lates estim ated Glome rular Filtr ation Rate (eGFR ) using the Chron ic Kidne y Disea se Epide miolo gy Colla borat ion (CKD- EPI) Equat ion (Tracey mg et. al 2020) as recom rosibel d by the Margarita cedillo . eGFR is based on age, serum creat inine , and sex. CKD-E PI does not calcu late eGFR by race, does not apply to child jovanny (age <18 years ), and shoul d not be used in pregn yamilex. Not Available [address], [address], 01/08/2025 14:40:09 01/09/20 25 01/08/2025 BASIC METAB OLIC PANEL sodium 137 mmol/ L 136-14 5 Not Available [address], [address], 01/08/2025 14:40:09 01/09/20 25 01/08/2025 BASIC METAB OLIC PANEL potassium 5.1 mmol/ L 3.5-5. 1 Not Available [address], [address], 01/08/2025 14:40:09 01/09/20 25 01/08/2025 BASIC METAB OLIC PANEL chloride 102 mmol/ L 96-107 Not Available [address], [address], 01/08/2025 14:40:09 01/09/20 25 01/08/2025 BASIC METAB OLIC PANEL anion gap 9.8 5.0-15 .0 Not Available [address], [address], 01/08/2025 14:40:09 01/09/20 25 01/08/2025 BASIC METAB OLIC PANEL CO2 25 mmol/ L 21-32 Not Available [address], [address], 01/08/2025 14:40:09 01/09/20 25 01/08/2025 BASIC METAB OLIC PANEL calcium 9.3 mg/dL 8.5-10 .3 Not Available [address], [address], 01/08/2025 14:40:09 01/09/20 25 01/08/2025 LIPID PANEL cholesterol 105 mg/dL <200 mg/dl Christel able 200-2 39 mg/dl Borde rline High >240 mg/dl High Not Available [address], [address], 01/08/2025 14:40:11 01/09/20 25 01/08/2025 LIPID PANEL triglyceride s 183 mg/dL <150 mg/dL Snow l 150-1 99 mg/dL Borde rline High 200-4 99 mg/dL High >500 mg/dL Very High Not Available [address], [address], 01/08/2025 14:40:11 01/09/20 25 01/08/2025 LIPID PANEL direct HDL 40 mg/dL <40 mg/dl - Major Risk for CHD >60 mg/dl - Negat sunny Risk for CHD Not Available [address], [address], 01/08/2025 14:40:11 01/09/20 25 01/08/2025 URIC ACID uric acid 7.5 mg/dL 2.6-6. 0 high Not Available [address], [address], 01/08/2025 14:40:12 01/09/20 25 01/08/2025 PHOSP HOROU S phosphorous 4.70 mg/dL 2.50-4 .90 Not Available [address], [address], 01/08/2025 14:40:13 01/09/20 25 01/08/2025 DIREC T LDL direct LDL 46 mg/dL RISK CATEG ORY LDL GOAL _ CHD or CHD Risk Equiv alent s <100 mg/dl (10-y ear risk >20%) 2+ Risk Facto rs <130 mg/dl (10-y ear risk <= 20%) 0-1 Risk Facto r <160 mg/dl [facility] all peopl e with 0-1 risk facto r have a 10 year risk <10%, thus 10 year risk asses ment in peopl e with 0-1 risk facto r is not neckelly abdiel. Not Available [address], [address], 01/08/2025 14:40:14 01/09/2001/08/2025 VITAM IN D 25-HY DROXY TOTAL vitamin D 25-hydroxy EIA 33.3 NG/mL 20.0-9 9.9 Thera py is based on measu remen t of total 25-OH D, with level s less than 20 ng/mL indic ative of Vitam in D defic iency . Level s betwe en 20ng/ mL and 30 ng/mL sugge st insuf ficie ncy. Optim al Level s are great er than 30 ng/mL . Not Available [address], [address], 01/08/2025 16:04:20 01/09/2001/09/2025 HGB A1C hemoglobin A1C 7.5 % 4.8-6. 0 high Goal: <7% in Patie nts with Diabe paula An A1c betwe en 5.7-6 .4% is ident ified as pre-d iabet es and sugge sts risk for progr essio n to diabe paula Two a1c value s of 6.5% or highe r is consi stent with a diagn osis of diabe paula but may need furth er confi rmati on Not Available [address], [address], 01/09/2025 12:03:34 01/09/2001/09/2025 HGB A1C estimated average glucose 168.6 mg/dL Not Available [address], [address], 01/09/2025 12:03:34 04/13/20 25 04/13/2025 CBC WBC 6.54 K/ L 3.98-1 0.04 Not Available [address], [address], 04/13/2025 11:02:30 04/13/20 25 04/13/2025 CBC RBC 4.15 M/ L 3.93-5 .22 Not Available [address], [address], 04/13/2025 11:02:30 04/13/20 25 04/13/2025 CBC HGB 13.3 g/dL 11.2-1 5.7 Not Available [address], [address], 04/13/2025 11:02:30 04/13/20 25 04/13/2025 CBC HCT 41.1 % 34.1-4 4.9 Not Available [address], [address], 04/13/2025 11:02:30 04/13/20 25 04/13/2025 CBC MCV 99.0 fL 79.4-9 4.8 high Not Available [address], [address], 04/13/2025 11:02:30 04/13/20 25 04/13/2025 CBC MCH 32.0 pg 25.6-3 2.2 Not Available [address], [address], 04/13/2025 11:02:30 04/13/20 25 04/13/2025 CBC MCHC 32.4 g/dL 32.2-3 5.5 Not Available [address], [address], 04/13/2025 11:02:30 04/13/20 25 04/13/2025 CBC plt 389 K/ L 182-36 9 high Not Available [address], [address], 04/13/2025 11:02:30 04/13/20 25 04/13/2025 CBC MPV 11.5 fL 9.4-12 .3 Not Available [address], [address], 04/13/2025 11:02:30 04/13/20 25 04/13/2025 CBC neut% 65.9 % 34.0-7 1.1 Not Available [address], [address], 04/13/2025 11:02:30 04/13/20 25 04/13/2025 CBC neut# 4.31 1.56-6 .13 Not Available [address], [address], 04/13/2025 11:02:30 04/13/20 25 04/13/2025 CBC lymph % 20.8 % 19.3-5 1.7 Not Available [address], [address], 04/13/2025 11:02:30 04/13/20 25 04/13/2025 CBC lymph # 1.36 K/ L 1.18-3 .74 Not Available [address], [address], 04/13/2025 11:02:30 04/13/20 25 04/13/2025 CBC mono% 8.4 % 4.7-12 .5 Not Available [address], [address], 04/13/2025 11:02:30 04/13/20 25 04/13/2025 CBC mono# 0.55 0.24-0 .56 Not Available [address], [address], 04/13/2025 11:02:30 04/13/20 25 04/13/2025 CBC eo% 3.5 % 0.7-5. 8 Not Available [address], [address], 04/13/2025 11:02:30 04/13/2004/13/2025 CBC eo# 0.23 0.04-0 .36 Not Available [address], [address], 04/13/2025 11:02:30 04/13/20 25 04/13/2025 CBC baso% 1.1 % 0.1-1. 2 Not Available [address], [address], 04/13/2025 11:02:30 04/13/20 25 04/13/2025 CBC baso# 0.07 0.00-0 .08 Not Available [address], [address], 04/13/2025 11:02:30 04/13/2004/13/2025 CBC RDW-CV 13.0 % 11.7-1 4.4 Not Available [address], [address], 04/13/2025 11:02:30 04/13/2004/13/2025 CBC Ig% 0.300 % 0.000- 1.500 Ig % >0.5 Indic ates possi ble Left Shift Not Available [address], [address], 04/13/2025 11:02:30 04/13/20 25 04/13/2025 CBC Ig# 0.020 0.000- 0.093 Not Available [address], [address], 04/13/2025 11:02:30 04/13/20 25 04/13/2025 CBC NRBC% 0.0 % 0.0-0. 2 Not Available [address], [address], 04/13/2025 11:02:30 04/13/20 25 04/13/2025 CBC NRBC# 0.000 0.000- 0.012 Not Available [address], [address], 04/13/2025 11:02:30 04/13/20 25 04/13/2025 HGB A1C hemoglobin A1C 7.1 % 4.8-6. 0 high Goal: <7% in Patie nts with Diabe paula An A1c betwe en 5.7-6 .4% is ident ified as pre-d iabet es and sugge sts risk for progr essio n to diabe paula Two a1c value s of 6.5% or highe r is consi stent with a diagn osis of diabe paula but may need furth er confi rmati on Not Available [address], [address], 04/13/2025 11:59:30 04/13/20 25 04/13/2025 HGB A1C estimated average glucose 157.1 mg/dL Not Available [address], [address], 04/13/2025 11:59:30 04/13/20 25 04/13/2025 PTH INTAC T PTH intact 138.7 pg/mL 9.6-66 .3 high Not Available [address], [address], 04/13/2025 12:19:16 04/13/20 25 04/13/2025 VITAM IN D 25-HY DROXY TOTAL vitamin D 25-hydroxy EIA 22.4 NG/mL 20.0-9 9.9 Thera py is based on measu remen t of total 25-OH D, with level s less than 20 ng/mL indic ative of Vitam in D defic iency . Level s betwe en 20ng/ mL and 30 ng/mL sugge st insuf ficie ncy. Optim al Level s are great er than 30 ng/mL . Not Available [address], [address], 04/13/2025 14:30:25 04/13/20 25 04/13/2025 BASIC METAB OLIC PANEL glucose 67 mg/dL 70-100 low Not Available [address], [address], 04/13/2025 15:49:39 04/13/20 25 04/13/2025 BASIC METAB OLIC PANEL BUN 30 mg/dL 7-18 high Not Available [address], [address], 04/13/2025 15:49:39 04/13/20 25 04/13/2025 BASIC METAB OLIC PANEL creatinine 2.1 mg/dL 0.8-1. 3 high Not Available [address], [address], 04/13/2025 15:49:39 04/13/20 25 04/13/2025 BASIC METAB OLIC PANEL B/C 14.3 ratio Not Available [address], [address], 04/13/2025 15:49:39 04/13/20 25 04/13/2025 BASIC METAB OLIC PANEL GFR 22.9 mL/mi n abnormal >=60m L/min - Snow l or midly reduc ed <60mL /min- Decre ased kidne y funct ion <15mL /min - Kidne y failu re [facility] calcu lates estim ated Glome rular Filtr ation Rate (eGFR ) using the Chron ic Kidne y Disea se Epide miolo gy Colla borat ion (CKD- EPI) Equat ion (Tracey r et. al 2020) as recom rosibel d by the Natio nal Kidne y Found ation . eGFR is based on age, serum creat inine , and sex. CKD-E PI does not calcu late eGFR by race, does not apply to child jovanny (age <18 years ), and shoul d not be used in pregn yamilex. Not Available [address], [address], 04/13/2025 15:49:39 04/13/20 25 04/13/2025 BASIC METAB OLIC PANEL sodium 141 mmol/ L 136-14 5 Not Available [address], [address], 04/13/2025 15:49:39 04/13/20 25 04/13/2025 BASIC METAB OLIC PANEL potassium 5.5 mmol/ L 3.5-5. 1 high Not Available [address], [address], 04/13/2025 15:49:39 04/13/20 25 04/13/2025 BASIC METAB OLIC PANEL chloride 104 mmol/ L 96-107 Not Available [address], [address], 04/13/2025 15:49:39 04/13/20 25 04/13/2025 BASIC METAB OLIC PANEL anion gap 12.9 5.0-15 .0 Not Available [address], [address], 04/13/2025 15:49:39 04/13/20 25 04/13/2025 BASIC METAB OLIC PANEL CO2 24 mmol/ L 21-32 Not Available [address], [address], 04/13/2025 15:49:39 04/13/20 25 04/13/2025 BASIC METAB OLIC PANEL calcium 9.4 mg/dL 8.5-10 .3 Not Available [address], [address], 04/13/2025 15:49:39 04/13/20 25 04/13/2025 PHOSP HOROU S phosphorous 4.40 mg/dL 2.50-4 .90 Not Available [address], [address], 04/13/2025 15:49:40 Result Notes None recorded. Problems Name Problem SNOMED Code Status Onset Date Resolution Date Notes Provider Name and Address Organization Details Recorded Time Bruit 85437737 Com[facility]25[facility]2015 [facility] 09:[facility]07 Type 2 diabetes mellitus without complica tion 076506839 Completed 09/29/2021 [facility] 13:55:44 Essentia l hyperten percy 98281039 Completed 11/25/2015 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 6 09:45:07 Retinosc hisis 36740839 Completed 11/25/2015 [facility] 6 09:45:06 Narrow angle 256020923 Completed 11/25/2015 [facility] 6 09:45:06 Diabetic on insulin 738684504 Completed 06/30/2012 ?? on Lantus per med list [facility] 6 09:45:07 Type 2 diabetes mellitus without complica tion 150381223 Completed 02/02/2014 Isabel Rico [facility] 1 13:55:44 Anemia 282933072 Completed 02/02/2014 Joaquin malave [facility] 6 09:45:06 Acquired keratode rma 291004204 Completed 11/25/2015 Joaquin malave [facility] 6 09:45:07 Atherosc lerosis of aorta 05490743 Active 05/26/12 MRA Abdomen Not Available [facility] 0 12:13:43 Hypothyr oidism 86229645 Completed 02/02/2014 Amparo Bolanos MD [address] [place] [address], [phone] , [facility] 2 15:39:16 Mixed hyperlip idemia 888658087 Active Not Available [facility] 0 12:13:43 Chronic renal impairme nt Completed 08/07/2014 Joaquin malave [facility] 6 09:45:07 Secondar y diabetes mellitus 4390981 Completed 02/02/2014 Joaquin malave [facility] 6 09:45:07 Secondar y diabetes mellitus 7287067 Completed 05/07/2011 Joaquin malave [facility] 6 09:45:07 Peripher al vascular disease 029921615 Active 05/26/12 MRA Leg Not Available [facility] 0 12:13:43 Acquired hypothyr oidism 640391318 Completed 11/25/2015 Joaquin malave [facility] 6 09:45:06 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 620553047 Completed 09/13/2013 Joaquin malave [facility] 6 09:45:07 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 76192258202 07 Active Not Available [facility] 0 12:13:43 Type 2 diabetes mellitus without complica tion 173105874 Completed 199902/01/2012 Isabel malave [facility] 1 13:55:44 Essentia l hyperten percy 52329079 Completed 200006/30/2012 Joaquin malave [facility] 6 09:45:07 Knee pain Completed 200009/13/2013 Joaquin malave [facility] 6 09:45:07 Rosacea 200716620 Completed 200011/25/2015 Joaquin malave [facility] 6 09:45:07 Menopaus al symptom 97755150 Completed 200005/07/2011 Joaquin malave [facility] 6 09:45:07 Alopecia 76776787 Completed 200011/25/2015 Joaquin malave [facility] 6 09:45:07 Mixed hyperlip idemia 585076112 Completed 200001/27/2010 [facility] 6 09:45:06 Spinal stenosis of lumbar region 83390345 Completed 200011/25/2015 Joaquin malave [facility] 6 09:45:07 On examinat ion - a rash Completed 200003/10/2010 Joaquin malave [facility] 6 09:45:07 Panic disorder without agorapho felicia 46521208 Completed 200002/02/2014 Joaquin malave [facility] 6 09:45:06 Acute gingivit is 07455068 Completed 200006/30/2012 Joaquin malave [facility] 6 09:45:07 Hypothyr oidism 99067936 Completed 200110/25/2011 Amparo Bolanos MD [address] [place] [address], [id number] [facility] 2 15:39:16 Vaginiti s and vulvovag initis Completed 200105/07/2011 Joaquin malave [facility] 6 09:45:07 Benign essentia l hyperten percy [id number] Completed 200108/07/2014 Joaquin malave [facility] 6 09:45:07 Senile osteopor osis [id number] Completed 200105/07/2011 Joaquin malave [facility] 6 09:45:07 Edema of extremit y [id number] Completed 200105/07/2011 [facility] 6 09:[facility]:07 Swelling of limb [id number] Completed 200105/07/2011 [facility] 6 09:45:07 Common cold [id number] Completed 200105/07/2011 [facility] 6 09:45:07 Hypercal cemia 54002769 Completed 200205/07/2011 [facility] 6 09:45:06 Elevated blood-pr essure reading without diagnosi s of hyperten percy 358616011 Completed 200305/07/2011 [facility] 6 09:45:07 Pure hypercho lesterol emia 367630648 Completed 200305/07/2011 [facility] 6 09:45:06 Dizzines s [id number] Completed 200305/07/2011 [facility] 6 09:45:07 Malaise and fatigue [id number] Completed 200305/07/2011 Joaquin malave [facility] 6 09:45:07 Low back pain [id number] Com[facility] 200305/07/2011 [facility] 09:[facility]07 Pyelonep hritis 97762246 Completed 200309/13/2013 Joaquin malave [facility] 6 09:45:07 Chest pain 90507390 Completed 200305/07/2011 Joaquin malave [facility] 6 09:45:07 Contusio n of chest 97269504 Completed 200305/07/2011 Joaquin malave [facility] 6 09:45:07 Acute maxillar y sinusiti s 41838170 Completed 200305/07/2011 Joaquin Man frieda [facility] 6 09:45:07 Cough 46896526 Completed 200305/07/2011 Joaquin Man frieda [facility] 6 09:45:07 Bullous retinosc hisis 90188756 Completed 200505/07/2011 Joaquin malave [facility] 6 09:45:06 Uncontro lled type 2 diabetes mellitus 661147601 Completed 200601/27/2010 Joaquin malave [facility] 6 09:45:06 Cortical senile cataract 38037019 Completed 200606/30/2012 Joaquin malave [facility] 6 09:45:07 Angle-cl osure glaucoma - borderli ne Completed 200611/25/2015 Joaquin mlaave [facility] 6 09:45:06 Disorder of skeletal system 26613391 Completed 200609/13/2013 Joaquin Man frieda [facility] 6 09:45:07 Hyperlip idemia 14744885 Completed 200605/07/2011 Joaquin malave [facility] 6 09:45:06 Pain in limb 84832486 Completed 200605/07/2011 Joaquin malave [facility] 6 09:45:07 Vitamin B deficien cy 46814119 Completed 200706/30/2012 Joaquin malave [facility] 6 09:45:06 Influenz a with non-resp iratory manifest ation 83017800 Completed 200705/07/2011 Joaquin malave [facility] 6 09:45:07 Megalobl astic anemia due to vitamin B>12< deficien cy 50395323 Active 2007 Not Available [facility] 0 12:13:43 Dehydrat ion 01143913 Completed 200705/07/2011 [facility] 6 09:45:06 Diarrhea 56396479 Completed 200705/07/2011 [facility] 6 09:45:07 Sprain of costal cartilag e Completed 200705/07/2011 [facility] 6 09:45:07 Gastric ulcer 821148486 Completed 200705/07/2011 [facility] 6 09:45:07 Iron deficien cy anemia 33002257 Completed 200706/30/2012 [facility] 6 09:45:06 Dysfunct ional uterine bleeding Completed 200705/07/2011 [facility] 6 09:45:07 Disorder of adrenal gland 36460921 Completed 200705/07/2011 [facility]quin [facility] 6 09:45:06 Disorder of function of stomach 511819593 Completed 200705/07/2011 [facility] 6 09:45:07 Diaphrag matic hernia 84907250 Completed 200705/07/2011 [facility] 6 09:45:07 Acute peptic ulcer with hemorrha ge 07962402 Active 2007 ASA Not Available [facility] 0 12:13:43 Type 2 diabetes mellitus 29938656 Active 2007 Nusrat Huitron LPN [facility] 5 12:10:32 Carotid artery occlusio n 374782623 Completed 200809/13/2013 Joaquin malave [facility] 6 09:45:07 Cardiova scular system problem 165876084 Completed 200805/07/2011 Joaquin malave [facility] 6 09:45:07 Neck pain 97413536 Completed 200805/07/2011 Joaquin malave, [facility] 6 09:45:07 Disorder of skin 89221934 Completed 200805/07/2011 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 27177619 Active 2011 Not Available [facility] 0 12:13:43 Intermit tent claudica tion 57362140 Completed 201107/27/2017 per cardiolo gy consult Puja Nettles NP [address] [place] [address], [phone] , [facility] 7 10:06:06 Chronic kidney disease stage 3 228860544 Completed 201111/25/2015 GFR 49.7 Rebekah Cortes LPN [facility] 2 11:02:35 Diabetes mellitus 98995361 Completed 201111/25/2015 HA1C 7.3 Joaquin Man [facility], [facility] 6 09:45:06 Cerebrov ascular accident 351704510 Active 2017 probably 07/09/18 Amparo Bolanos MD [address] [place] [address], [phone] , [facility] 2 15:39:08 Chronic kidney disease stage 3 582562257 Completed 202005/07/2022 LABS 09/23/20 21 GFR 33.0 Removal Reason: most recent GFR = 28.1 BMP 05/01/22, Stage 4 Rebekah Cortes LPN [facility], [facility] 2 11:02:35 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 per neuro no treatmen t needed Amparo Bolanos MD [address] [place] [address], , [facility] 2 15:40:07 Gout 50026297 Active 2021 Amparo Bolanos MD [address] [place] [address], , [facility] 2 15:45:18 Chronic kidney disease stage 4 971244718 Active 2021 Most recent GFR = 28.1, BMP 05/01/22. DESIRE Ahn, [facility] 2 11:02:57 Coronary arterios clerosis 81280872 Active 2022 Celia Holley PA-C [address] [place] [address], , [facility] 3 15:40:21 Hyperkal emia 89998975 Active 2022 Celia Holley PA-C [address] [place] [address], , [facility] 3 15:40:24 Memory impairme nt 718827991 Active 2022 Aleja Montoya MD [address] [place] [address], , [facility] 3 09:59:16 Acute sialoade nitis 057590474 Active 2023 Celia Holley PA-C [address] [place] [address], , [facility] 4 11:11:40 Problem Notes None recorded. Procedures Surgical History Date Name Laterality Status Provider Name and Address Organization Details Recorded Time 09/28/20 23 Optical Coherence Tomography (Retina) completed Lenka Jimenez OD [address] [place], [address], [facility] 09/28/2023 09:23:29 09/14/20 23 Medicare Wellness Visit completed Elizabeth Nguyễn [facility] 09/13/2023 19:54:15 09/14/20 23 Medicare Annual Wellness Visit completed Elizabeth Nguyễn [facility] 09/14/2023 14:35:35 09/07/20 23 Advanced Care Planning completed Aleja Montoya MD [address] [place], [address], [facility] 09/07/2023 10:51:47 07/01/20 23 Post hospital/SNF follow-up/Transit ional Care completed Isabel Castano [facility] 07/01/2023 08:04:11 03/25/20 23 Refraction completed Lenka Jimenez, OD [address] [place], [address], [facility] 03/25/2023 13:50:11 03/25/20 23 Optical Coherence Tomography (Retina) completed Lenka Jimenez, OD [address] [place], [address], [facility] 03/25/2023 13:50:36 10/07/20 22 Medicare Wellness Visit completed Sunshine Bautista Fatmata [facility] 10/07/2022 10:04:03 10/07/20 22 Alcohol use screening completed Sunshine Bautista [facility] 10/07/2022 10:04:03 10/07/20 22 Cardiovascular disease risk reduction counseling completed Sunshine Bautista [facility] 10/07/2022 10:04:03 02/06/20 22 Post hospital/SNF follow-up/Transit ional Care completed Maryana Bhatia MA [facility] 02/05/2022 11:43:01 10/01/20 21 Medicare Wellness Visit completed Elizabeth Membreno MA [facility] 10/01/2021 08:38:06 10/01/20 21 Alcohol use screening completed Elizabeth Membreno MA [facility] 10/01/2021 08:38:06 10/01/20 21 Cardiovascular disease risk reduction counseling completed Elizabeth Membreno MA [facility] 10/01/2021 08:38:06 10/01/20 21 Medicare Annual Wellness Visit completed Elizabeth Membreno MA [facility] 10/01/2021 11:27:30 09/05/20 19 POC Urinalysis Testing completed Serena Mcbride MA [facility] 09/05/2019 08:57:09 07/11/20 19 POC Urinalysis Testing completed Serena Mcbride MA [facility] 07/11/2019 16:03:06 06/01/20 19 Medicare Wellness Visit completed Serena Mcbride MA [facility] 06/01/2019 09:54:10 04/02/20 19 POC Urinalysis Testing completed Norma Okeefe MA [facility] 04/02/2019 10:09:45 03/23/20 18 Medicare Wellness Visit completed Oriana Tello MA [facility] 03/23/2018 10:27:19 01/15/20 18 Refraction completed Eva Shaver [facility] 01/14/2018 09:00:32 05/18/20 17 POC Urinalysis Testing completed Viridiana Box MA [facility] 05/18/2017 09:22:23 03/16/20 17 Medicare Wellness Visit completed Rebekah Camarena MA [facility] 03/16/2017 08:34:40 03/10/20 16 Medicare Wellness Visit completed Rebekah Camarena MA [facility] 03/10/2016 09:42:06 11/20/19 16 Refraction completed Beto Villarreal, [address], [address], [facility] 11/20/2015 08:14:56 02/06/20 15 Medicare Wellness Visit completed Rebekah Camarena MA [facility] 02/05/2015 09:31:25 02/03/20 14 Medicare Wellness Visit completed Bethany Morgan MA [facility] 02/02/2014 09:21:43 02/17/20 13 Other (specify) completed Joaquin Man [facility] 12/03/2015 09:45:07 11/01/19 13 Medicare Wellness Visit completed Bethany Morgan MA [facility] 11/01/2012 09:31:02 07/20/20 12 Iliac revasc w/stent add-on completed Joaquin Man [facility] 12/03/2015 09:45:26 09/17/20 10 Treatment and Advice completed Char Lowe, PT [address] [place], [address], [facility] 09/17/2010 08:46:31 09/11/20 10 Treatment and Advice completed Char Lowe, PT [address] [place], [address], [facility] 09/11/2010 09:41:46 09/02/20 10 Treatment and Advice completed Char Lowe, PT [address] [place], [address], [facility] 09/02/2010 10:33:58 04/10/20 10 Punch Biopsy completed MATTEO Elias [address] [place] [address], [phone], [facility] 04/10/2010 10:32:13 02/23/20 08 completed Not Available [facility] 1 06:05:52 01/05/20 08 completed Not Available [facility] 1 06:05:52 01/05/20 08 completed Not Available [facility] 1 06:05:52 10/25/18 77 Other (specify) completed MATTEO Elias [address] [place] [address], [phone], [facility] 02/11/2014 12:08:20 carotid endarterectomy completed Celia Holley PA-C [address] [place] [address], [phone], [facility] 04/21/2023 16:49:02 Imaging Results None recorded. Procedure Notes None recorded. Medical Equipment None Reported. Allergies Allergen ID Allergen Name Allergen Category Reaction Reaction Severity Criticality Documentation Date Start Date Code Code System Note Provider Name and Address Organization Details Recorded Time 67170 amitripty line medicatio n rash Not available Not available 03/26/2009 704 RxNorm Not Available [facility] 1 06:05:41 073564 naproxen medicatio n Not available Not available Not available 02/23/2013 7258 RxNorm MATTEO Elias [address] [facility], [place], [address], [facility] 3 09:56:31 534147 hydrochlo rothiazid e medicatio n rash mild Not available 06/15/20172016 5487 RxNorm Puja Nettles NP [address] [facility], [place], [address], [facility] 7 08:33:20 740452 Bactrim medicatio n rash severe Not available 06/04/2021 78781 9 RxNorm Puja Nettles NP [address] [facility], [place], [address], [facility] 1 10:57:37 639118 colchicin e medicatio n diarrhea severe Not available 02/05/2022 2683 RxNorm Not Available [facility] 3 18:21:55 07835 Crestor medicatio n rash Not available Not available 03/10/2010 33569 4 RxNorm ? rash( start ed after pt start ed medic ation ) Not Available [facility] 1 06:05:41 049043 Non-stero idal anti-infl ammatory agent (substanc e) medicatio n Not available Not available Not available 02/19/2023 57715 5008 SNOMED CKD 4 Puja Nettles NP [address] [facility] [place], [address], [facility] 3 09:10:52 763955 amoxicill in medicatio n itching Not available Not available 02/15/2024 723 RxNorm Lips red, itchy and tingl y. See visit note Fer Desai RN [facility], [facility] 4 17:40:39 56283 Lipitor medicatio n rash Not available Not available 04/21/2011 36860 5 RxNorm Not Available [facility] 1 06:05:41 09284 colestipo l medicatio n itching Not available Not available 10/22/2011 2685 [facility] 2 08:42:14 Medications Name Sig Start Date Stop Date Status Note LastModified by Organization Details LastModified Time freestyle mis lite 10/01 completed Not Available Not Available Not Available freestyle lite test strips strp active Not Available Not Available Not Available freestyle paula lite 04/14 completed Not Available Not Available Not Available amoxicill in 500 mg capsule 11/02 completed Not Available Not Available Not Available metformin 500 mg tablet 1 tablet in the AM and 1 tablet in the PM 06/05 completed Not Available Not Available Not Available prednison e 10 mg tablet 5 tabs every day x 3 days then 4 tabs for 2 days 3 tabs x 2 days, then 2 tabs x 2 days then 1 tab x 2 days 05/22 completed Not Available Not Available Not Available clindamyc in HCl 300 mg capsule TAKE 1 CAPSULE BY MOUTH EVERY 6 HOURS FOR 7 DAYS 03/06 completed Not Available Not Available Not Available triamcino lone acetonide 0.5 % topical cream Apply a thin film to the affected skin areas by topical route 2 timesper day 2009 active pt will call if needs rx, has some at home already Not Available Not Available Not Available metoprolo l succinate ER 50 mg tablet,ex tended release 24 hr Take 1 tablet every day by oral route. 09/15 completed Not Available Not Available Not Available Claritin 10 mg tablet Take 1 tablet every day by oral route. 10/01 completed Not Available Not Available Not Available FreeStyle Lancets 28 gauge USE DIRECTED TWICE DAILY active Not Available Not Available No t Available lisinopri l 20 mg tablet TAKE 1 TABLET BY MOUTH ONCE DAILY FOR 90 DAYS 09/14 completed 09/14/20 23 per Nephrolo gist, cutting to 10mg daily Not Available Not Available Not Available prednison e 20 mg tablet TAKE 2 TABLETS BY MOUTH DAILY FOR 2 DAYS AND THEN TAKE 1 TABLET DAILY FOR 3 DAYS 04/14 completed Not Available Not Available Not Available lovastati n 40 mg tablet Take 1 tablet every day by oral route. 01/23 completed Not Available Not Available Not Available metoprolo l succinate ER 100 mg tablet,ex tended release 24 hr TAKE 1 TABLET BY MOUTH ONCE DAILY active Not Available Not Available No t Available Pyridium 200 mg tablet Take 1 tablet 3 times a day by oral route for 2 days. 09/05 completed Not Available Not Available Not Available hydroxoco balamin 1,000 mcg/mL intramusc ular solution Inject by intramus cular route. 2014 active Not Available Not Available Not Avai lable hydralazi ne 25 mg tablet TAKE 1 TABLET BY MOUTH THREE TIMES DAILY active Not Available Not Available No t Available clopidogr el 75 mg tablet TAKE 1 TABLET BY MOUTH ONCE DAILY active Not Available Not Available No t Available chlorthal idone 25 mg tablet Take 1 tablet every day by oral route in the morning. 04/14 completed see cardiolo gy consult note and Hospital D/C note Not Available Not Available Not Available ciproflox acin 250 mg tablet Take 1 tablet every 12 hours by oral route for 5 days. 06/15 completed Not Available Not Available Not Available amlodipin e 5 mg tablet Take 1 tablet every day by oral route. 10/24 completed Not Available Not Available Not Available allopurin ol 100 mg tablet TAKE 1/2 (ONE-ANGLE F) TABLET BY MOUTH EVERY OTHER DAY TO PREVENT GOUT active Not Available Not Available No t Available sulfameth oxazole 800 mg-trimet hoprim 160 mg tablet TAKE 1 TABLET BY MOUTH EVERY 12 HOURS FOR 5 DAYS 10/01 completed Not Available Not Available Not Available lovastati n 10 mg tablet 2007 active Take 4.00 tabs every day after noon Not Available Not Available Not Available levothyro xine 75 mcg tablet TAKE 1 TABLET BY MOUTH IN THE MORNING ON AN EMPTY STOMACH, TAKE 1 HOUR BEFORE EATING active Not Available Not Available No t Available prednisol one acetate 1 % eye drops,talat pension active Not Available Not Available Not Available Lidex 0.05 % topical cream Apply to the affected area(s) by topical route 2 times per day 2008 active Not Available Not Available Not Avai lable amlodipin e 10 mg tablet TAKE 1 TABLET BY MOUTH ONCE DAILY active Not Available Not Available No t Available Bactroban 2 % topical ointment Apply a small amount to the affected area by topical route 3 times per day 01/27 completed Not Available Not Available Not Available Euthyrox 88 mcg tablet TAKE 1 TABLET BY MOUTH IN THE MORNING 05/22 completed Not Available Not Available Not Available cyanocoba gabriela (vit B-12) 1,000 mcg/mL injection solution Inject 1 mL every month by intramus cular route. 06/09 completed rtc 03/30/16 for next inj Not Available Not Available Not Available clotrimaz ole-betam ethasone 1 %-0.05 % topical cream APPLY TO THE AFFECTED AND SURROUND ING AREAS OF SKIN OF FEET BY TOPICAL ROUTE 2 TIMES PER DAY IN THE MORNING AND EVENING FOR 2 WEEKS 05/31 completed 02/19/23 prn Not Available Not Available Not Available lisinopri l 10 mg tablet TAKE 1 TABLET BY MOUTH ONCE DAILY active Not Available Not Available No t Available indometha lakshmi 25 mg capsule Take 2 capsules 3 times a day by oral route for 9 days. 10/01 completed Not Available Not Available Not Available Diprolene AF 0.05 % topical cream Apply to the affected area(s) by topical route once daily ; do not exceed 45 grams per week. 2009 active Not Available Not Available Not Avai lable ammonium lactate 12 % topical cream apply to dry on feet each daily active Not Available Not Available No t Available aspirin 81 mg tablet 03/26 completed Take 1.00 tabs daily Not Available Not Available Not Available lisinopri l 5 mg tablet Take 1 tablet every day by oral route. 2011 active Not Available Not Available Not Avai lable metoprolo l succinate ER 25 mg tablet,ex tended release 24 hr TAKE 1 TABLET BY MOUTH ONCE DAILY 09/15 completed currentl y taking 50 mg 08/04/24 tb Not Available Not Available Not Available ergocalci ferol (vitamin D2) 1,250 mcg (50,000 unit) capsule Take 1 capsule by mouth once a week active Not Available Not Available No t Available Aspir-81 mg tablet,de layed release Take 1 tablet every day by oral route. active Not Available Not Available No t Available colchicin e 0.6 mg tablet TAKE 1/2 (ONE-ANGLE F) TABLET BY MOUTH TWICE DAILY FOR 1 DAY THEN TAKE 1 TABLET ONCE DAILY FOR 4 DAYS 04/24 completed rash Not Available Not Available Not Available lisinopri l 40 mg tablet TAKE 1 TABLET BY MOUTH ONCE DAILY 02/04 completed Not Available Not Available Not Available Lipitor 10 mg tablet Take 1 tablet every day by oral route. 04/21 completed rash Not Available Not Available Not Available colestipo l 1 gram tablet TAKE ONE TABLET BY MOUTH Three x DAILY active Not Available Not Available No t Available Fish Oil 1,000 mg capsule Take 1 capsule 3 times a day by oral route. 2013 active Not Available Not Available Not Avai lable amoxicill in 500 mg-potass ium clavulana te 125 mg tablet Take 1 tablet every 12 hours by oral route for 7 days. 02/20 completed Not Available Not Available Not Available ezetimibe 10 mg tablet TAKE 1 TABLET BY MOUTH ONCE DAILY active Not Available Not Available No t Available Novolog FlexPen U-100 Insulin aspart 100 unit/mL (3 mL) subcutane ous INJECT 12 UNITS SUBCUTAN EOUSLY DAILY 15 MINUTES BEFORE LUNCH MEAL active Not Available Not Available No t Available nitrofura ntoin monohydra te/macroc rystals 100 mg capsule Take 1 capsule every 12 hours by oral route for 5 days. 07/24 completed Not Available Not Available Not Available levothyro xine 88 mcg one tab daily 02/05 completed 01/28/20 22- Per [facility] D/C 01/27/20 22. Not Available Not Available Not Available Fish Oil 1 tab po tid 2011 active Not Available Not Available Not Avai lable Calcium 500 + D take 2 tabs daily active Not Available Not Available No t Available Crestor active ? pt develope d rash whie taking med Not Available Not Available Not Available BD Ultra-Fin e Short Pen Needle 31 gauge x 03/09 USE 1 PEN NEEDLE ONCE DAILY active Not Available Not Available No t Available BD Ultra Fine Lancets 33 gauge use as directed bid 05/10 completed Not Available Not Available Not Available hydrochlo rothiazid e 12.5 mg tablet Take 1 tablet every day by oral route for 30 days. 06/15 completed Not Available Not Available Not Available FreeStyle Lite Meter kit USE DIRECTED 04/14 completed Not Available Not Available Not Available FreeStyle Lite Strips USE 1 STRIP TO CHECK GLUCOSE TWICE DAILY active Not Available Not Available No t Available FreeStyle Lite Meter 07/11 completed Not Available Not Available Not Available FreeStyle Lite Strips test twice daily active Not Available Not Available No t Available Lantus Solostar U-100 Insulin 100 unit/mL (3 mL) subcutane ous pen INJECT 54 UNITS SUBCUTAN EOUSLY IN THE MORNING active Not Available Not Available No t Available Cholestyr amine Light 4 gram oral powder Take 1 scoop (4 gram) dissolve d in 2 to 6 ounces of water or noncarbo nated beverage by oral route 3 times per day before meals 2010 active Not Available Not Available Not Avai lable vitamin E (dl, acetate) 180 mg (400 unit) capsule 2010 active pt started this for nail strength 09/05 Not Available Not Available Not Available colestipo l 1 gram tablet Take 1 tablet twice a day by oral route for 90 days. 11/05 completed Not Available Not Available Not Available BD Ultra-Fin e II Lancets 30 gauge 05/22 completed Not Available Not Available Not Available Jardiance 10 mg tablet TAKE 1 TABLET BY MOUTH ONCE DAILY 09/14 completed Not Available Not Available Not Available Trulicity 0.75 mg/0.5 mL subcutane ous pen injector INJECT 1 PEN (0.5ML) SUBCUTAN EOUSLY ONCE A WEEK 04/21 completed 04/21/23 cb not tking Not Available Not Available Not Available Repatha Syringe 140 mg/mL subcutane ous syringe q 2 wks 04/19 completed Not Available Not Available Not Available Repatha SureClick 140 mg/mL subcutane ous pen injector INJECT 140 MG SUBCUTAN EOUSLY EVERY TWO WEEKS , ROTATE INJECTIO N SITES active Not Available Not Available No t Available Fluzone High-Dose 3234-2098 (PF) 180 mcg/0.5 mL intramusc ular syringe 11/02 completed Not Available Not Available Not Available Fluzone High-Dose (PF) 180 mcg/0.5 mL intramusc ular syringe PHARMACI ST ADMINIST ERED IMMUNIZA TION ADMINIST ERED AT TIME OF DISPENSI NG 07/11 completed Not Available Not Available Not Available Fluzone High-Dose Quad (PF) 240 mcg/0.7 mL IM syringe PHARMACI ST ADMINIST ERED IMMUNIZA TION ADMINIST ERED AT TIME OF DISPENSI NG 10/30 completed Not Available Not Available Not Available insulin glargine- yfgn (U-100) 100 unit/mL (3 mL) subcutane ous pen INJECT 55 UNITS SUBCUTAN EOUSLY IN THE MORNING AND 15 UNITS IN THE EVENING 12/06 completed Not Available Not Available Not Available Vitals Date Recorded Body height Oxygen saturation Oxygen saturation in Arterial blood by Pulse oximetry Heart rate Body mass index (BMI) Body weight Systolic And Diastolic Provider Name and Address Organization Details Last Updated DateTime 5 157.48 cm 97 % 97 % 66 /min 27 kg/m2 17957.8 8 g 122/56 mm[Hg] Vini Horvath [facility] 5 10:31:31 Date Recorded Body height Provider Name an d Address Organization Details Last Updated DateTime 01/23/2025 157.48 cm Chloe Gomez [facility] 01/23/2025 09:26:25 Date Recorded Body height Heart rate Oxygen saturation Oxygen saturation in Arterial blood by Pulse oximetry Systolic And Diastolic Provider Name and Address Organization Details Last Updated DateTime 5 157.48 cm 68 /min 98 % 98 % 132/60 mm[Hg] Bandar George [facility] 5 10:05:34 Date Recorded Body height Provider Name an d Address Organization Details Last Updated DateTime 05/08/2025 157.48 cm Chloe Gomez [facility] 05/08/2025 08:13:54 Date Recorded Body height Oxygen saturation Oxygen saturation in Arterial blood by Pulse oximetry Heart rate Body mass index (BMI) Body weight Systolic And Diastolic Provider Name and Address Organization Details Last Updated DateTime 4 157.48 cm 97 % 97 % 62 /min 27.5 kg/m2 46323.6 6 g 128/60 mm[Hg] Vini Horvath MA [facility] 4 10:32:19 Social History Question Answer Notes LastModified by Organizat ion Details LastModified Time Tobacco Smoking Status Former Smoker quit in early her 50's, pt was only a social smoker Not Available [facility]27[facility]2020 03:17:57 What Is Your Level Of Caffeine Consumption? Moderate 2 Cups Coffee Daily [email or web address] Information not available 10/07/2022 How Much Tobacco Do You Chew? None Smokes A Pipe [id number] Information not available 08/27/2020 What Type Of Diet Are You Following? REGULAR Low Fat / Diabetes Information not available 10/01/2021 Which Illicit Or Recreational Drugs Have You Used? None Information not available 08/27/2020 Education 10 2nd Yr. Voc. School [employer] Information not available 03/23/2018 When Did You Quit Smoking? 16+yearssinc elastcigaret te [id number] Information not available 08/27/2020 Live Alone Or With Others? With Others [email or web address] Information not available 09/10/2011 Patient Has Health Care Proxy Signed And In Chart Yes Gay([facility])[phone] Information not available 10/02/2021 MOLST Form Signed And In Chart 02/04/2022 Information not available 02/06/2022 CCM Consent Discussion 04/01/2022 Information not available 04/15/2022 Marital Status Information not available 09/10/2011 Mosquito Repellent Used Routinely Yes [email or web address] Information not available 09/10/2011 What Was The Date Of Your Most Recent Tobacco Screening? 04/19/2025 [email or web address] Information not available 04/19/2025 How Many Children Do You Have? 3 [id number] Information not available 08/27/2020 What Is Your Current Pack Years? 10packyears [id number] Information not available 08/27/2020 What Is Your Relationship Status? Information not available 10/01/2021 Seat Belts Used Routinely Yes [email or web address] Information not available 09/10/2011 Smoke Alarm In Home Yes [email or web address] Information not available 09/10/2011 How Much Tobacco Do You Smoke? No [id number] Information not available 08/27/2020 What Types Of Sporting Activities Do You Participate In? None [id number] Information not available 08/27/2020 General Stress Level Low [email or web address] Information not available 03/10/2016 Sex: Female Functional Status Question Answer Note LastModified by Organizat ion Details LastModified Time Do you use any illicit or recreational drugs? No Information not available 10/01/2021 Do you or have you ever used any other forms of tobacco or nicotine? No Active-Semies[employer]ki Information not available 10/01/2021 What is your level of alcohol consumption? None [id number] Information not available 08/27/2020 Do you or have you ever used smokeless tobacco? Never used smokeless tobacco [id number] Information not available 08/27/2020 Are you currently employed? No Active-[employer] Information not available 10/01/2021 What is your occupation? retired [employer] Information not available 03/23/2018 Do you or have you ever used e-cigarettes or vape? Never used electronic cigarettes [id number] Information not available 08/27/2020 What is your exercise level? Occasional AA Carpooling Website Information not available 10/01/2021 Mental Status None recorded. Family History Relationship Description Onset Age of this Age Resolved Age Notes LastModified by Organization Details LastModified Time Mother Old-age 83 [email or web address] Not available 02/11/2014 12:07:32 Sister Diabetes mellitus 72 eerickson Not available 2013 12:07:32 Brother Hiatal hernia 74 skillip Not available 2017 14:22:45 Brother Emphysema 83 smoker [employer] Not availabl e 07/11/2018 14:23:00 Sister Edema leg proble ms rosie Not available 02/11/2014 12:07:32 Father Myocardial infarction 64 eerickson Not available 02/11 12:07:32 Notes:Cardiovascular: Family history is remarkable for myocardial infarction. father age 64. Medical History Condition Response Peripheral Vascular Disease Y Gynecological HistoryNo gynecological history recorded. Obstetrics History GPAL:G 0 P 0 0 0 0 Immunizations Vaccine Type Date Status Note Provider Nam e and Address Organization Details Recorded Time influenza, unspecified formulation 1 completed [facility] 14:10:28 Tdap 1 completed Not Available [facility] 11/11/2019 02:15:41 influenza, unspecified formulation 2 completed [facility] 01/30/2022 14:10:28 influenza, unspecified formulation 3 completed [facility] 01/30/2022 14:10:28 Influenza, split virus, trivalent, preservative 1 completed Not Available [facility] 11/11/2019 02:29:24 influenza, unspecified formulation 4 completed Tishdarcy Mascorro [facility] 01/30/2022 14:10:28 Td(adult) unspecified formulation 5 completed [facility] 01/30/2022 14:10:28 influenza, unspecified formulation 5 completed [facility] 01/30/2022 14:10:28 influenza, unspecified formulation 5 completed [facility] 01/30/2022 14:10:28 influenza, unspecified formulation 6 completed [facility] 01/30/2022 14:10:28 influenza, unspecified formulation 7 completed [facility] 01/30/2022 14:10:28 influenza, unspecified formulation 8 completed [facility] 01/30/2022 14:10:27 Influenza, split virus, trivalent, preservative 2 completed Not Available [facility] 11/11/2019 02:26:35 zoster live 3 completed Not Available [facility] 11/11/2019 02:38:04 Influenza, split virus, trivalent, PF 3 completed Not Available [facility] 11/11/2019 02:18:57 pneumococcal polysaccharide PPV23 3 completed Not Available [facility] 11/11/2019 02:14:36 Pneumococcal conjugate PCV 13 5 completed Not Available [facility] 11/11/2019 02:31:44 Influenza, high-dose, trivalent, PF 7 completed Not Available [facility] 11/11/2019 02:21:40 influenza, unspecified formulation 4 completed [facility] 01/30/2022 14:10:27 Influenza, high-dose, trivalent, PF 5 completed [facility] 07/03/2024 17:28:30 pneumococcal, unspecified formulation 9 completed Tish Mascorro [facility] 01/30/2022 14:10:27 Influenza, split virus, trivalent, preservative 0 completed Not Available [facility] 11/11/2019 02:28:15 Influenza, high-dose, trivalent, PF 9 completed [facility] 02/15/2024 11:02:27 Td (adult), 2 Lf tetanus toxoid, preservative free, adsorbed 1 completed [facility]IFER WeberSt[facility] 05/27/2021 12:34:49 Influenza, high-dose, quadrivalent, PF 3 completed DIONISIO [facility]ong[facility] 09/21/2023 09:52:56 COVID-19, mRNA, LNP-S, PF, 30 mcg/0.3 mL dose 1 completed [facility] 01/30/2022 14:10:27 Influenza, high-dose, quadrivalent, PF 1 completed [facility] 01/30/2022 14:10:28 COVID-19, mRNA, LNP-S, PF, 30 mcg/0.3 mL dose 1 completed [facility] 02/15/2024 11:02:27 zoster recombinant 2 completed Coty Wang [facility] 02/15/2024 11:02:27 COVID-19, mRNA, LNP-S, PF, 30 mcg/0.3 mL dose 2 completed Sunshine Bautista DIONISIO malaveSt[facility] 07/22/2022 09:09:33 influenza, unspecified formulation 3 completed Romi Sen [facility] 08/17/2023 08:32:02 zoster recombinant 3 completed Coty Wang [facility] 02/15/2024 11:02:27 Influenza, high-dose, quadrivalent, PF 0 completed Coty Wang [facility] 02/15/2024 11:02:27 Influenza, high-dose, quadrivalent, PF 2 completed [facility] 02/15/2024 11:02:27 COVID-19, mRNA, LNP-S, PF, 30 mcg/0.3 mL dose 1 completed [facility] 02/15/2024 11:02:27 COVID-19, mRNA, LNP-S, PF, 30 mcg/0.3 mL dose 1 completed [facility] 02/15/2024 11:02:27 COVID-19, mRNA, LNP-S, PF, 30 mcg/0.3 mL dose, guillermo-sucrose 2 completed Coty Wang [facility] 02/15/2024 11:02:27 COVID-19, mRNA, LNP-S, bivalent, PF, 30 mcg/0.3 mL dose 2 completed [facility] 02/15/2024 11:02:27 COVID-19, mRNA, LNP-S, PF, 50 mcg/0.5 mL 3 completed [facility] 02/15/2024 11:02:27 Influenza, high-dose, trivalent, PF 8 completed [facility] 02/15/2024 11:02:27 Influenza, split virus, trivalent, preservative 9 completed [facility] 02/15/2024 11:02:28 Influenza, high-dose, trivalent, PF 6 completed [facility] 07/03/2024 17:28:30 COVID-19, mRNA, LNP-S, PF, 30 mcg/0.3 mL dose 4 completed [facility] 07/03/2024 17:28:44 Influenza, high-dose, trivalent, PF 4 completed [facility] 07/03/2024 17:29:08 Past Encounters Encounter ID Performer Location Encounter Start Date Encounter Closed Date Diagnosis/Indication Diagnosis SNOMED-CT Code Diagnosis ICD10 Code Diagnosis Note [id number] Trini Valverde , [facility], [address] [place] [address] 09/14/2000 14:45:00 11/14/2008 02:02:[id number] [facility] , [address] [address] 02/17/2001 14:00:00 11/14/2008 02:02:29 [id number] Trini Valverde , [facility], [address] [place] [address] 12/01/2000 11:15:00 11/14/2008 02:02:29 [id number] Trini Valverde, [facility], [address] [place] [address] 04/29/2001 09:30:00 11/14/2008 02:02:29 [id number] MATTEO Elias , [facility], [address] [place] [address] 06/02/2001 10:30:00 11/14/2008 02:02:29 [id number] Trini Valverde , [facility], [address] [place] [address] 09/05/2001 13:15:00 11/14/2008 02:02:29 [id number] Trini Valverde , [facility], [address] [place] [address] 10/11/2001 11:30:00 11/14/2008 02:02:29 [id number] MATTEO Elias , [facility], [address] [place] [address] 10/24/2001 11:45:00 11/14/2008 02:02:29 [id number] Trini Valverde , [facility], [address] [place] [address] 11/01/2001 12:00:00 11/14/2008 02:02:29 [id number] [facility] - [facility] [address] [place] [address] 12/20/2001 08:00:00 11/14/2008 02:02:29 [id number] MATTEO Elias , [facility], [address] [place] [address] 12/29/2001 08:15:00 11/14/2008 02:02:29 [id number] MATTEO Elias, [facility], [address] [place] [address] 01/26/2002 10:15:00 11/14/2008 02:02:29 [id number] MATTEO Elias, [facility], [address] [place] [address] 06/19/2002 10:11:14 11/14/2008 02:02:29 [id number] [facility] , [facility] [address] [facility] [place] [address] 06/22/2002 15:46:51 11/14/2008 02:02:29 [id number] [facility] - [facility] [address] [place] [address] 06/22/2002 08:33:28 11/14/2008 02:02:29 [id number] MATTEO Elias FP, [facility], [address] [place] [address] 07/10/2002 08:42:36 11/14/2008 02:02:29 [id number] [facility] - [address] [address] 07/13/2002 08:08:16 11/14/2008 02:02:29 [id number] [facility] [facility], [facility] [address] [place] [address] 07/26/2002 12:08:57 11/14/2008 02:02:29 [id number] [facility] FLU CLINIC , [facility], [address] [place] [address] 08/08/2002 09:43:41 11/14/2008 02:02:29 [id number] MATTEO Elias , [facility], [address] [place] [address] 09/11/2002 08:50:17 11/14/2008 02:02:29 [id number] MATTEO Elias , [facility], [address] [place] [address] 10/03/2002 15:08:23 11/14/2008 02:02:29 [id number] [facility] BUILDING [employer]CHANIC Radiology , [address] [address] 10/06/2002 08:44:16 11/14/2008 02:02:29 [id number] Trini Valverde , [facility], [address] [place] [address] 10/19/2002 10:39:05 11/14/2008 02:02:[id number] [facility] Rad[facility] , [facility] [address] [place] [address] 10/31/2002 07:22:15 11/14/2008 02:02:29 [id number] [facility] - [address] [address] 05/04/2003 07:32:53 11/14/2008 02:02:29 [id number] [facility] - [address] [address] 05/15/2003 08:43:58 11/14/2008 02:02:29 [id number] MATTEO Elias [facility], [address] [place] [address] 05/25/2003 13:28:15 11/14/2008 02:02:29 [id number] [facility] FLU CLINIC [facility], [address] [place] [address] 08/07/2003 15:58:42 08/07/2003 15:58:46 [id number] [facility] - [facility] [address] [place] [address] 08/07/2003 08:16:54 08/07/2003 11:36:41 [id number] Trini Valverde [facility], [address] [place] [address] 08/13/2003 08:21:50 08/13/2003 15:39:10 [id number] Trini Valverde [facility], [address] [place] [address] 09/13/2003 09:22:52 09/14/2003 09:37:08 [id number] Trini Valverde [facility], [address] [place] [address] 10/15/2003 12:28:40 10/16/2003 15:48:51 [id number] [facility] - [address] [address] 11/15/2003 07:40:19 11/15/2003 07:41:22 [id number] [facility]ICE [address] [place] [address] 12/20/2003 09:36:39 12/20/2003 13:55:46 [id number] Trini Valverde [facility], [address] [place] [address] 01/15/2004 10:16:29 01/15/2004 11:38:56 [id number] [facility] - [facility] [address] [place] [address] 01/31/2004 08:51:11 01/31/2004 09:06:34 [id number] MATTEO Elias , [facility], [address] [place] [address] 02/07/2004 10:16:18 02/08/2004 08:33:50 [id number] MATTEO Elias, [facility], [address] [place] [address] 02/29/2004 09:49:26 03/01/2004 10:24:15 [id number] Trini Valverde, [facility], [address] [place] [address] 03/18/2004 13:07:04 03/18/2004 13:10:04 [id number] [facility] - [facility] [address] [place] [address] 04/23/2004 08:07:53 04/23/2004 08:08:00 [id number] [facility] RADIOLOGY [facility] , [facility] [address] [place] [address] 07/15/2004 08:46:48 11/14/2008 02:02:29 [id number] MATTEO Elias, [facility], [address] [place] [address] 07/15/2004 08:01:15 07/17/2004 09:18:33 [id number] [facility] FLU CLINIC [facility], [address] [place] [address] 08/01/2004 09:45:00 11/14/2008 02:02:29 [id number] MATTEO Elias, [facility], [address] [place] [address] 08/18/2004 09:47:37 08/19/2004 12:50:31 [id number] [facility] - [facility] [address] [place] [address] 08/18/2004 10:33:37 08/18/2004 10:33:51 [id number] REYNA Flores, [facility], [address] [place] [address] 09/11/2004 15:39:02 09/12/2004 08:51:31 [id number] [facility] - [address] [address] 11/11/2004 07:21:26 11/11/2004 07:21:31 [id number] MATTEO Elias, [facility], [address] [place] [address] 11/18/2004 10:11:33 11/24/2004 11:06:16 [id number] [facility] - [address] [address] 04/17/2005 07:38:53 04/17/2005 07:38:59 [id number] MATTEO Elias, [facility], [address] [place] [address] 04/21/2005 13:43:31 04/21/2005 16:48:15 [id number] Juarez Flores OD [facility], [address] [address] 04/21/2005 14:50:22 04/22/2005 11:20:41 [id number] [facility], [facility] [address] [place] [address] 06/10/2005 10:51:58 06/10/2005 16:22:16 [id number] [facility] , [address] [address] 06/18/2005 15:00:53 11/14/2008 02:02:29 [id number] [facility] - [address] [address] 06/25/2005 11:00:13 06/25/2005 11:03:30 [id number] [facility] FLU [facility]INIC , [facility], [address] [place] [address] 08/19/2005 17:04:11 08/19/2005 17:04:19 [id number] [facility] - [address] [address] 10/15/2005 09:04:28 10/15/2005 09:04:33 [id number] MATTEO Elias , [facility], [address] [place] [address] 11/26/2005 11:40:22 11/26/2005 16:29:32 [id number] [facility] - [address] [address] 01/11/2006 08:48:09 01/11/2006 08:48:13 [id number] [facility] - [address] [address] 04/23/2006 07:51:39 04/23/2006 07:51:43 [id number] [facility] - [address] [address] 04/30/2006 14:31:14 04/30/2006 14:31:40 [id number] Safia Harrison, OD [facility], [address] [address] 04/30/2006 14:53:17 11/14/2008 02:02:29 [id number] MATTEO Elias, [facility], [address] [place] [address] 04/30/2006 13:24:42 05/04/2006 08:28:[id number] [facility] Radiology , [address] [address] 07/16/2006 08:50:32 11/14/2008 02:02:29 [id number] [facility] Radiology , [address] [address] 07/16/2006 00:00:00 11/14/2008 02:02:29 [id number] [facility] - [address] [address] 08/30/2006 07:20:38 08/30/2006 07:21:07 [id number] [facility] - [address] [address] 08/30/2006 00:00:00 11/14/2008 02:02:29 [id number] MATTEO Elias, [facility], [address] [place] [address] 09/06/2006 09:37:17 09/08/2006 09:30:42 [id number] [facility] FLU CLINIC [place], [facility], [address] [place] [address] 09/28/2006 12:15:47 11/14/2008 02:02:29 [id number] [facility] - [address] [address] 11/29/2006 07:24:37 11/29/2006 07:24:44 [id number] MATTEO Elias, [facility], [address] [place] [address] 12/06/2006 09:21:24 12/06/2006 13:13:47 [id number] [facility] - [address] [address] 03/07/2007 07:26:07 03/07/2007 07:26:12 [id number] MATTEO Elias, [facility], [address] [place] [address] 03/14/2007 09:38:09 03/16/2007 14:13:54 [id number] Safia Christy, [facility], [address] [address] 05/02/2007 10:36:29 11/14/2008 02:02:29 [id number] [facility] - [address] [address] 06/21/2007 07:24:46 06/21/2007 07:24:53 [id number] [facility] RADIOLOGY [facility] Radiology , [address] [address] 06/28/2007 17:30:43 06/29/2007 09:30:37 [id number] [facility] RADIOLOGY Techn[employer] [address] [address] 06/28/2007 00:00:00 11/14/2008 02:02:29 [id number] MATTEO Elias, [facility], [address]ICE [address] [place] [address] 06/28/2007 13:31:43 07/04/2007 09:28:58 [id number] [facility] Radiology , [address] [address] 07/18/2007 09:10:15 07/19/2007 09:26:31 [id number] [facility] Radiology , [address] [address] 07/18/2007 00:00:00 11/14/2008 02:02:29 [id number] [facility] FLU [facility]INIC [place], [facility], [address] [place] [address] 08/17/2007 15:36:19 08/17/2007 15:36:25 [id number] [facility] - [facility] [place] [address] 09/27/2007 07:02:49 09/27/2007 07:02:56 [id number] MATTEO Elias, [facility], [address] [place] [address] 10/04/2007 09:49:48 10/10/2007 08:53:57 [id number] Trini Valverde, [facility], [address] [place] [address] 11/28/2007 13:25:58 11/14/2008 02:02:29 [id number] REYNA Soto, [facility], [address] [place] [address] 11/30/2007 09:30:34 11/14/2008 02:02:29 [id number] [facility] - [address] [address] 11/30/2007 10:44:44 11/30/2007 10:44:51 [id number] MATTEO Elias, [facility], [address] [place] [address] 12/05/2007 09:38:03 11/14/2008 02:02:29 [id number] REYNA Soto, [facility], [address] [place] [address] 11/30/2007 00:00:00 11/14/2008 02:02:29 [id number] FP TREATMENT NURSE [facility], [facility], [address] [place] [address] 12/13/2007 09:38:32 11/14/2008 02:02:29 [id number] FP TREATMENT NURSE [facility] FP, [facility], OFFICE [address] [place] [address] 12/20/2007 09:59:15 11/14/2008 02:02:29 [id number] FP TREATMENT NURSE [facility], [facility], OFFICE [address] [place] [address] 12/27/2007 09:47:53 11/14/2008 02:02:29 [id number] ASP, KIMBERLY ENCISO MD ASP, [address] [address] 01/05/2008 10:50:57 01/06/2008 07:47:41 [id number] [facility] - [facility] [address] [place] [address] 01/10/2008 12:14:25 01/10/2008 12:14:37 [id number] MATTEO Elias FP, [facility], OFFICE [address] [place] [address] 01/10/2008 10:35:03 11/14/2008 02:02:29 [id number] FP TREATMENT NURSE [facility] FP, [facility], OFFICE [address] [place] [address] 01/24/2008 09:41:29 11/14/2008 02:02:29 [id number] MATTEO Elias , [facility], OFFICE [address] [place] [address] 02/02/2008 09:48:29 11/14/2008 02:02:[id number] [facility] - [facility] [address] [place] [address] 02/23/2008 09:58:58 02/23/2008 09:59:09 [id number] [facility], KIMBERLY ENCISO MD [facility], [facility] [address] [place] [address] 02/23/2008 08:05:42 02/23/2008 15:11:06 [id number] FP TREATMENT NURSE [facility], [facility], OFFICE [address] [place] [address] 03/26/2008 13:44:43 11/14/2008 02:02:29 [id number] Puja Nettles NP , [facility], OFFICE [address] [place] [address] 6 04/03/2008 11:46:27 11/14/2008 02:02:29 [id number] FP TREATMENT NURSE [facility], [facility], OFFICE [address] [place] [address] 04/25/2008 10:19:46 11/14/2008 02:02:29 [id number] FP TREATMENT NURSE [facility], [facility], OFFICE [address] [place] [address] 02/24/2008 09:05:17 11/14/2008 02:02:29 [id number] Juarez Flores [facility], [facility] [address] [place] [address] 6 05/03/2008 09:36:57 05/04/2008 09:37:53 [id number] MATTEO Elias FP, [facility], OFFICE [address] [place] [address] 6 05/07/2008 09:35:13 11/14/2008 02:02:29 [id number] [facility] - [address] [address] 05/07/2008 10:48:32 05/07/2008 10:48:41 [id number] [facility] [employer], [facility] [address] [place] [address] 6 05/10/2008 11:57:24 05/10/2008 17:52:59 [id number] [facility] - [address] [address] 6 05/14/2008 08:48:51 05/14/2008 08:49:04 [id number] FP TREATMENT NURSE [facility], [facility], OFFICE [address] [place] [address] 6 05/25/2008 09:42:45 11/14/2008 02:02:29 [id number] FP TREATMENT NURSE [facility], [facility], OFFICE [address] [place] [address] 6 06/26/2008 10:18:59 11/14/2008 02:02:29 [id number] [facility] FLU CLINIC FP, [facility], OFFICE [address] [place] [address] 6 07/20/2008 14:48:07 07/20/2008 14:48:[address] [id number] [facility] Radiology , [facility] [address] [place] [address] 07/23/2008 09:41:36 07/24/2008 09:23:36 [id number] [facility] Radiology , [facility] [address] [place] [address] 6 07/23/2008 00:00:00 11/14/2008 02:02:29 [id number] FP TREATMENT NURSE [facility], [facility], OFFICE [address] [place] [address] 6 07/25/2008 08:52:34 11/14/2008 02:02:29 [id number] [facility] - [address] [address] 07/31/2008 07:01:35 07/31/2008 07:01:40 [id number] FP TREATMENT NURSE [facility], [facility], OFFICE [address] [place] [address] 08/27/2008 13:53:11 11/14/2008 02:02:29 [id number] FP TREATMENT NURSE [facility], [facility], OFFICE [address] [place] [address] 6 09/24/2008 13:34:27 11/14/2008 02:02:29 [id number] FP TREATMENT NURSE [facility], [facility], OFFICE [address] [place] [address] 6 10/22/2008 10:04:06 11/14/2008 02:02:29 [id number] [facility] - [facility] [address] [place] [address] 6 10/22/2008 09:52:49 10/22/2008 09:53:00 [id number] MATTEO Elias FP, [facility], OFFICE [address] [place] [address] 6 10/29/2008 10:37:52 11/14/2008 02:02:29 [id number] [facility] RADIOLOGY [employer] Radiology , [facility] [address] [place] [address] 6 10/29/2008 14:15:23 10/30/2008 09:50:50 [id number] [facility] RADIOLOGY [employer]olog[employer] Radiology , [address] [address] 10/29/2008 00:00:00 11/14/2008 02:02:29 [id number] [facility] BUILDING [employer]CHAN[employer] Radiology , [address] [address] 10/29/2008 13:20:29 10/31/2008 09:36:18 [id number] [facility] [employer] Radiology , [facility] [address] [place] [address] 10/29/2008 00:00:00 11/14/2008 02:02:29 [id number] FP TREATMENT NURSE [facility], [facility], OFFICE [address] [place] [address] 6 12/17/2008 09:45:01 12/20/2008 16:02:44 [id number] FP TREATMENT NURSE [facility], [facility], OFFICE [address] [place] [address] 01/14/2009 13:44:43 01/16/2009 10:48:56 [id number] FP TREATMENT NURSE [facility] FP, [facility], OFFICE [address] [place] [address] 6 02/11/2009 10:19:38 02/13/2009 12:20:07 [id number] FP TREATMENT NURSE [facility] FP, [facility], OFFICE [address] [place] [address] 6 03/13/2009 10:18:55 03/15/2009 14:57:47 [id number] MATTEO Elias FP, [facility], OFFICE [address] [place] [address] 6 03/26/2009 08:30:09 03/29/2009 15:00:40 [id number] FP TREATMENT NURSE [facility] FP, [facility], OFFICE [address] [place] [address] 6 04/15/2009 14:40:11 04/18/2009 09:40:55 [id number] FP TREATMENT NURSE [facility] FP, [facility], OFFICE [address] [place] [address] 6 05/13/2009 13:43:28 05/17/2009 09:42:50 [id number] FP TREATMENT NURSE [facility] FP, [facility], OFFICE [address] [place] [address] 06/10/2009 13:38:16 06/13/2009 11:30:22 [id number] FP TREATMENT NURSE [facility] FP, [facility], OFFICE [address] [place] [address] 6 07/08/2009 14:06:43 07/12/2009 10:22:22 [id number] MATTEO Elias FP, [facility], OFFICE [address] [place] [address] 07/18/2009 08:29:47 07/22/2009 08:58:25 [id number] FP TREATMENT NURSE [facility] FP, [facility], [address]ICE [address] [place] [address] 08/06/2009 10:35:49 08/08/2009 09:59:50 [id number] FP TREATMENT NURSE [facility] FP, [facility], OFFICE [address] [place] [address] 11/19/2008 09:35:55 11/21/2008 09:37:07 [id number] [facility] - [facility] [address] [place] [address] 01/29/2009 06:39:00 01/29/2009 06:39:09 [id number] [facility] - [facility] [address] [place] [address] 07/10/2009 06:45:32 07/10/2009 06:45:43 [id number] Kimberly Enciso MD FP, [facility], OFFICE [address] [place] [address] 08/22/2009 14:57:59 08/26/2009 09:19:35 [id number] FP TREATMENT NURSE [facility], [facility], OFFICE [address] [place] [address] 09/03/2009 10:31:05 09/05/2009 10:49:30 [id number] [facility] Radiology , [facility] [address] [place] [address] 09/12/2009 13:44:28 09/16/2009 11:44:49 [id number] FP TREATMENT NURSE [facility], [facility], OFFICE [address] [place] [address] 10/01/2009 09:44:53 10/03/2009 11:23:24 [id number] FP TREATMENT NURSE [facility] FP, [facility], OFFICE [address] [place] [address] 6 10/29/2009 09:35:31 10/31/2009 15:01:44 [id number] FP TREATMENT NURSE [facility] FP, [facility], OFFICE [address] [place] [address] 6 11/26/2009 09:34:04 11/28/2009 14:04:09 [id number] FP TREATMENT NURSE [facility] FP, [facility], OFFICE [address] [place] [address] 6 12/24/2009 09:43:44 12/27/2009 09:39:25 [id number] FP TREATMENT NURSE [facility] FP, [facility], OFFICE [address] [place] [address] 6 01/21/2010 09:38:02 01/23/2010 08:42:31 [id number] MATTEO Elias FP, [facility], OFFICE [address] [place] [address] 01/27/2010 10:09:51 01/30/2010 08:34:00 [id number] FP TREATMENT NURSE [facility] FP, [facility], OFFICE [address] [place] [address] 6 02/18/2010 09:31:15 02/20/2010 12:46:04 [id number] MATTEO Elias, [facility], OFFICE [address] [place] [address] 6 03/10/2010 14:48:24 03/12/2010 08:55:11 [id number] FP TREATMENT NURSE [facility] FROYLAN [facility], OFFICE [address] [place] [address] 03/18/2010 09:29:51 03/25/2010 09:22:48 [id number] MATTEO Elias, [facility], OFFICE [address] [place] [address] 04/08/2010 13:17:06 04/10/2010 12:24:12 [id number] MATTEO Elias, [facility], OFFICE [address] [place] [address] 04/10/2010 09:40:05 04/14/2010 08:41:12 [id number] FP TREATMENT NURSE [facility] FROYLAN [facility], OFFICE [address] [place] [address] 6 04/15/2010 09:21:44 04/17/2010 12:40:10 [id number] FP TREATMENT NURSE [facility] FROYLAN [facility], OFFICE [address] [place] [address] 05/13/2010 09:30:45 05/15/2010 09:30:12 [id number] FP TREATMENT NURSE [facility], OFFICE [address] [place] [address] 6 06/13/2010 09:11:41 06/18/2010 09:32:00 [id number] [facility] FLU CLINIC FP [facility], OFFICE [address] [place] [address] 6 07/14/2010 09:19:47 07/15/2010 09:32:34 [id number] FP TREATMENT NURSE [facility] FROYLAN [facility], OFFICE [address] [place] [address] 6 08/19/2010 08:55:27 08/21/2010 13:02:54 [id number] Char Lowe, PT Physical Therapy, [address] [place] [address] 08/27/2010 11:13:08/28/2010 08:22:39 [id number] Char Lowe, PT Physical Therapy, [facility] [address] [facility] [place] [address] 6 09/02/2010 09:35:35 09/02/2010 11:38:22 [id number] Char Lowe, PT Physical Therapy, [facility] [address] [facility] [place] [address] 09/04/2010 08:47:46 09/04/2010 12:28:09 [id number] Char Lowe, PT Physical Therapy, [facility] [address] [facility] [place] [address] 6 09/09/2010 08:44:36 09/09/2010 15:34:50 [id number] Char Lowe, PT Physical Therapy, [facility] [address] [facility] [place] [address] 6 09/11/2010 08:54:05 09/11/2010 11:51:12 [id number] FP TREATMENT NURSE FAZAL GALEANO [facility], OFFICE [address] [place] [address] 09/12/2010 08:11:04 09/16/2010 10:18:23 [id number] Char Lowe, PT Physical Therapy, [facility] [place] [facility] [place] [address] 09/15/2010 08:01:44 09/15/2010 14:44:29 [id number] Char Lowe, PT Physical Therapy, [facility] [address] [facility] [place] [address] 09/17/2010 07:44:22 09/17/2010 11:02:58 [id number] Char Lowe, PT Physical Therapy, [facility] [address] [place] [address] 09/23/2010 08:39:44 09/23/2010 16:08:49 [id number] Char Lowe, PT Physical Therapy, [facility] [address] [facility] [address] 09/25/2010 08:43:36 09/25/2010 12:13:35 [id number] FP TREATMENT NURSE FAZAL GALEANO [facility], OFFICE [address] [place] [address] 10/10/2010 08:55:42 10/13/2010 14:20:48 [id number] MATTEO Elias FP, [facility], OFFICE [address] [place] [address] 10/13/2010 08:27:18 10/14/2010 12:16:25 [id number] FP TREATMENT NURSE [facility] FP, [facility], OFFICE [address] [place] [address] 11/07/2010 08:45:55 11/11/2010 12:12:43 [id number] FP TREATMENT NURSE [facility] FP, [facility], OFFICE [address] [place] [address] 6 12/05/2010 08:57:20 12/11/2010 07:52:59 [id number] FP TREATMENT NURSE [facility] FP, [facility], OFFICE [address] [facility] [address] 01/02/2011 09:21:05 01/06/2011 11:36:46 [id number] FP TREATMENT NURSE [facility] FP, [facility], OFFICE [address] [place] [address] 6 02/03/2011 09:47:32 02/06/2011 15:02:25 [id number] FP TREATMENT NURSE [facility] FP, [facility], OFFICE [address] [place] [address] 03/03/2011 09:49:43 03/06/2011 08:29:07 [id number] MATTEO Elias FP, [facility], OFFICE [address] [place] [address] 03/20/2011 08:21:06 03/24/2011 08:44:47 [id number] FP TREATMENT NURSE [facility] FP, [facility], OFFICE [address] [place] [address] 6 03/31/2011 09:37:46 03/31/2011 12:20:49 [id number] MATTEO Elias FP, [facility], OFFICE [address] [place] [address] 6 04/21/2011 08:08:35 04/21/2011 09:30:09 [id number] FP TREATMENT NURSE [facility] FP, [facility], OFFICE [address] [place] [address] 6 04/28/2011 09:38:55 04/29/2011 09:26:53 [id number] [facility] Radiology , [facility] [address] [place] [address] 05/18/2011 08:41:32 05/20/2011 14:38:00 [id number] [facility] [employer] Radiology , [facility] [address] [place] [address] 6 05/18/2011 08:42:02 05/20/2011 14:39:15 [id number] FP TREATMENT NURSE [facility], [facility], OFFICE [address] [place] [address] 6 05/26/2011 09:41:54 05/26/2011 10:48:35 [id number] FP TREATMENT NURSE [facility], [facility], OFFICE [address] [place] [address] 6 06/23/2011 09:31:01 06/23/2011 09:46:26 [id number] [facility] FLU CLINIC FP, [facility], OFFICE [address] [place] [address] 6 07/07/2011 07:25:24 07/07/2011 12:03:47 [id number] MATTEO Elias FP, [facility], OFFICE [address] [place] [address] 6 07/21/2011 08:14:15 07/21/2011 09:09:03 [id number] Jung Lizama MD , [facility], OFFICE [address] [place] [address] 6 08/10/2011 13:24:11 08/10/2011 14:22:[id number] [facility] , [facility] [address] [place] [address] 6 08/10/2011 14:24:25 08/11/2011 14:32:39 [id number] FP TREATMENT NURSE [facility], [facility], OFFICE [address] [place] [address] 6 08/18/2011 08:19:32 08/18/2011 08:30:44 [id number] FP TREATMENT NURSE [facility], [facility], OFFICE [address] [place] [address] 6 09/15/2011 08:15:21 09/15/2011 08:37:06 [id number] FP TREATMENT NURSE [facility], [facility], OFFICE [address] [place] [address] 6 10/13/2011 08:22:05 10/15/2011 14:55:00 [id number] MATTEO Elias FP, [facility], OFFICE [address] [place] [address] 6 10/22/2011 09:46:26 10/27/2011 10:04:01 [id number] FP TREATMENT NURSE [facility] FP, [facility], OFFICE [address] [place] [address] 11/10/2011 08:27:07 11/11/2011 15:16:26 [id number] FP TREATMENT NURSE [facility] FP, [facility], OFFICE [address] [place] [address] 6 12/07/2011 13:53:11 12/10/2011 10:37:05 [id number] FP TREATMENT NURSE [facility] FP, [facility], OFFICE [address] [place] [address] 6 01/05/2012 08:43:56 01/08/2012 11:13:29 [id number] Aleja Montoya MD FP, [facility], OFFICE [address] [place] [address] 01/25/2012 08:29:12 01/25/2012 09:42:11 [id number] FP TREATMENT NURSE [facility] FP, [facility], OFFICE [address] [place] [address] 6 02/02/2012 08:40:12 02/04/2012 11:21:23 [id number] FP TREATMENT NURSE [facility] FP, [facility], OFFICE [address] [place] [address] 03/01/2012 08:40:12 03/02/2012 10:05:10 [id number] FP TREATMENT NURSE [facility] FP, [facility], OFFICE [address] [place] [address] 6 03/30/2012 09:31:54 03/30/2012 09:52:02 [id number] Aleja Montoya MD FP, [facility], OFFICE [address] [place] [address] 05/02/2012 08:15:52 05/02/2012 09:11:15 [id number] Anayeli Tong MD Radiology , [facility] [address] [place] [address] 6 05/20/2012 09:02:28 05/23/2012 10:06:13 [id number] FP TREATMENT NURSE [facility] FP, [facility], OFFICE [address] [place] [address] 6 06/01/2012 09:39:36 06/01/2012 10:59:51 [id number] FP TREATMENT NURSE [facility] FP, [facility], OFFICE [address] [place] [address] 6 06/29/2012 08:30:33 06/30/2012 07:44:59 [id number] FP TREATMENT NURSE [facility] FP, [facility], OFFICE [address] [place] [address] 07/27/2012 08:52:34 08/02/2012 10:36:43 [id number] MATTEO Elias FP, [facility], OFFICE [address] [place] [address] 08/04/2012 08:20:06 08/04/2012 09:14:00 [id number] FP TREATMENT NURSE [facility] FP, [facility], OFFICE [address] [place] [address] 08/24/2012 08:44:54 08/24/2012 15:36:57 [id number] FP TREATMENT NURSE [facility] FP, [facility], OFFICE [address] [place] [address] 09/20/2012 10:30:04 09/20/2012 11:18:52 [id number] FP TREATMENT NURSE [facility] FP, [facility], OFFICE [address] [place] [address] 10/26/2012 08:22:13 10/26/2012 08:23:13 [id number] Aleja Montoya MD FP, [facility], OFFICE [address] [place] [address] 11/01/2012 09:10:21 11/01/2012 10:21:51 [id number] FP TREATMENT NURSE [facility] FP, [facility], OFFICE [address] [place] [address] 11/25/2012 10:25:57 11/30/2012 10:47:01 [id number] FP TREATMENT NURSE [facility] FP, [facility], OFFICE [address] [place] [address] 12/23/2012 10:36:56 12/23/2012 13:41:40 [id number] FP TREATMENT NURSE [facility] FP, [facility], OFFICE [address] [place] [address] 01/20/2013 12:02:42 01/23/2013 11:07:53 [id number] MATTEO Elias FP, [facility], OFFICE [address] [place] [address] 02/21/2013 10:33:31 02/21/2013 11:26:39 [id number] Ankush Rao MD , [facility], OFFICE [address] [place] [address] 02/23/2013 08:22:58 02/23/2013 09:25:36 [id number] Kimberly Enciso MD , [facility], OFFICE [address] [place] [address] 03/21/2013 09:44:33 03/21/2013 15:02:33 [id number] Juarez Luke MD , [facility], OFFICE [address] [place] [address] 04/13/2013 08:09:24 04/13/2013 09:18:29 [id number] MATTEO Elias , [facility], OFFICE [address] [place] [address] 04/18/2013 09:46:44 04/18/2013 15:41:00 [id number] MATTEO Elias , [facility], OFFICE [address] [place] [address] 05/16/2013 09:41:06 05/16/2013 10:22:51 [id number] Kimberly Enciso MD , [facility], OFFICE [address] [place] [address] 06/13/2013 09:13:59 06/13/2013 09:49:10 Megaloblastic anemia due to vitamin B>12< deficiency [id number] Puja Nettles NP , [facility], OFFICE [address] [place] [address] 07/05/2013 06:14:09 07/07/2013 12:05:49 Influenza vaccine needed [id number] Ankush Rao MD , [facility], OFFICE [address] [place] [address] 07/13/2013 08:46:27 07/13/2013 09:38:02 Benign essential hypertension [id number] Blood pressure at goal continue to work on diet ,exercisea nd lowering salt intake as discussed Mixed hyperlipidemia [id number] continues to be elevated with just colestipol and fish oil. Intolerant of statins. Advised to continue to work on lowering saturated fats and exercise as discussed and to increase colestipol and fish oil each to TID rather than BID. Acquired hypothyroidism [id number] Megaloblas tic anemia due to vitamin B>12< deficiency [id number] due for monthly B12 injection Administra tion of pneumococcal vaccine [id number] Disorder o f vitamin B12 [id number] Diabetes mellitus [id number] Ideally control per recent labs. [id number] MATTEO Elias, [facility], OFFICE [address] [place] [address] 08/10/2013 08:21:04 08/10/2013 08:40:34 Anemia [id number] MATTEO Elias, [facility], OFFICE [address] [place] [address] 09/07/2013 08:24:16 09/07/2013 08:39:10 Anemia 121187736 [id number] MATTEO Elias, [facility], OFFICE [address] [place] [address] 10/05/2013 08:18:11 10/05/2013 08:40:06 Anemia [id number] MD FROYLAN Suazo, [facility], OFFICE [address] [place] [address] 10/12/2013 08:08:08 10/12/2013 08:52:53 Benign essential hypertension 0816335 continue to work on diet ,exercisea nd lowering salt intake as discussed Mixed hyperlipidemia [id number] Triglyceri jeni very elevated 07/07, now taking 2000mg fish oil/day. Will recheck triglyceri jeni with entire panel prior to [facility] Nov 2013. continue to work on diet and exercise as discussed Type 2 lexa betes mellitus without complication [id number] currently at goal with A1C of 6.4. Encouraged pt to continue diet and exercise routines. Peripheral vascular disease [id number] improved since stent placed by Dr. MCKEON left leg though not so much improvemen t on the right. Followup with Dr. MCKEON. Bruit [id number] bilat noted on exam today L>R. Will obtain ultrasound of carotids. [id number] MATTEO Elias, [facility], OFFICE [address] [place] [address] 11/02/2013 08:14:00 11/02/2013 08:30:02 Anemia [id number] MATTEO Eilas , [facility], OFFICE [address] [place] [address] 11/30/2013 09:10:51 11/30/2013 10:21:53 Megaloblastic anemia due to vitamin B>12< deficiency 68121813 [id number] Kimberly Enciso MD , [facility], [address] [place] [address] 12/28/2013 09:12:47 12/28/2013 14:08:48 Disorder of vitamin B12 583170293 [id number] MATTEO Elias, [facility], [address] [place] [address] 01/25/2014 08:58:38 01/25/2014 14:27:37 Megaloblastic anemia due to vitamin B>12< deficiency 62571354 [id number] MATTEO Elias , [facility], [address] [place] [address] 02/02/2014 08:50:08 02/02/2014 10:09:13 Adult health examination [id number] see Risk Assessment and Lifestyle Change Counseling section above Counseling [id number] Benign ess ential hypertension 7522981 At goal at most times, though today's reading is a bit high. Advised pt to measure bps at home for the next month and continue to work on diet , and to continue low sodium diet as she always does. Mixed hyperlipidemia 254234936 Cholestero l is not at goal but in good range given pt's inability to tolerate medication s. Continue to work on diet and exercise as discussed Megaloblas tic anemia due to vitamin B>12< deficiency 05674586 getting B12 injections monthly. 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 Pt not interested in further evaluation at this time. Chronic ki dney disease stage 3 [id number] Diabetes mellitus 85294503 Ideally control per recent labs. Rosacea 260947409 not a concern Angle-clos ure glaucoma - borderline [id number] followed by Opthamolog y Spinal elizabet nosis of lumbar region 49916060 claudicati on resolved on L with vascular stent,unsu ccessful on R. Bruit 27789166 bilat noted on exam today L>R. Will obtain ultrasound of carotids. Hypothyroidism 40269277 Chronic re nal impairment 832150490 new increase in creatinine for the first time in over a 1.2. There has been a gradual increase over the past few months. Will refer to nephrology and increase lisinopril from 10 to 20 mg per day. Peripheral vascular disease 704466366 improved since stent placed by Dr. MCKEON left leg though not so much improvemen t on the right. Followup with Dr. MCKEON. Acquired hypothyroidism 425856187 not adequately replaced per most recent TSH. Dose of supplement now Levothyrox ine 88 6 d/wk. Pt taking this with other medication s at hs. Advised to take alone and recheck in 2 months. Coronary arteriosclerosis in [place] artery 4369542855 107 most recent stress test was 2008 with some LAD decr flow but low risk study per Dr Ford. [id number] MATTEO Elias, [facility], [address] [place] [address] 02/23/2014 10:52:15 02/23/2014 11:12:29 Megaloblastic anemia due to vitamin B>12< deficiency 13393334 [id number] MD FROYLAN Suazo, [facility], [address] [place] [address] 03/23/2014 09:09:41 03/23/2014 09:37:48 Megaloblastic anemia due to vitamin B>12< deficiency 62814314 [id number] MATTEO Elias, [facility], [address] [place] [address] 04/20/2014 09:07:30 04/20/2014 09:45:13 Megaloblastic anemia due to vitamin B>12< deficiency 35931610 [id number] MATTEO Elias, [facility], [address] [place] [address] 05/21/2014 14:43:14 05/21/2014 15:55:00 Megaloblastic anemia due to vitamin B>12< deficiency 96483852 [id number] MATTEO Elias [facility], [address] [place] [address] 06/21/2014 08:22:26 06/21/2014 11:10:00 Megaloblastic anemia due to vitamin B>12< deficiency 67650665 [id number] MATTEO Elias , [facility], [address] [place] [address] 07/24/2014 08:29:11 07/24/2014 08:51:24 Megaloblastic anemia due to vitamin B>12< deficiency 36309299 [id number] MATTEO Elias , [facility], [address] [place] [address] 08/07/2014 07:38:40 08/07/2014 08:34:03 Mixed hyperlipidemia 010427756 Cholestero l is not at goal but in good range given pt's inability to tolerate medication s. increase fish oil to 3000mg /d. continue [place] Continue to work on diet and exercise as discussed Type 2 lexa betes mellitus without complication 004122705 currently at goal with A1C of 6.4. Encouraged pt to continue diet and exercise routines. Diabetes mellitus 69894752 Acquired hypothyroidism 005385362 not adequately replaced per most recent TSH. Dose of supplement now Levothyrox ine 88 6 d/wk. Pt taking this with other medication s at hs. Advised to take alone and recheck in 2 months. Essential hypertension 04573694 BP at goal per home readings though elevated per office readings. No change in medciation at this time. Continue to check BP away from office and bring record to next appt along with any home BP equipment. Continue low sodium diet, regular exercise, importance of taking meds as directed. RTC for March physical exam. Peripheral vascular disease 904597531 doing well Atheroscle rosis of aorta 39677592 stable [id number] Kimberly Enciso MD , [facility], [address] [place] [address] 08/23/2014 08:17:24 08/23/2014 08:39:23 Megaloblastic anemia due to vitamin B>12< deficiency 55760006 [id number] MD FROYLAN Chandler, [facility], [address] [place] [address] 09/19/2014 08:13:25 09/19/2014 08:25:38 Megaloblastic anemia due to vitamin B>12< deficiency 26282243 [id number] MATTEO Elias, [facility], [address] [place] [address] 10/16/2014 08:13:36 10/16/2014 09:21:25 Megaloblastic anemia due to decreased intake of vitamin B>12< 15397142 [id number] MATTEO Elias, [facility], [address] [place] [address] 11/15/2014 08:23:00 11/19/2014 09:12:49 Megaloblastic anemia due to decreased intake of vitamin B>12< 94167008 [id number] MATTEO Elias, [facility], [address] [place] [address] 12/17/2014 08:10:55 12/18/2014 09:46:21 Megaloblastic anemia due to vitamin B>12< deficiency 93591649 [id number] MATTEO Elias, [facility], [address] [place] [address] 01/14/2015 08:13:43 01/15/2015 15:09:12 Megaloblastic anemia due to vitamin B>12< deficiency 82175002 [id number] Puja Nettles NP FP, [facility], [address] [place] [address] 02/05/2015 09:10:31 02/05/2015 10:18:12 Adult health examination 400219633 see Risk Assessment and Lifestyle Change Counseling section above Counseling [id number] Mixed hyperlipidemia 447628144 Cholestero l is not at goal - unable to tolerate statin continue fish oil, low fat high fiber diet Benign ess ential hypertension 3031119 Not at goal increase lisinopril to 40mg - check BP bid at home - call tomorrow to check in RTC later in week to see PCP continue to work on diet, exercise, and lowering salt intake as discussed Acquired hypothyroidism 062540730 sl low TSH - will decrease dose by one tab/week and repeat TSH 2months goal is to keep her TSH 2-4 to avoid tachycardi a Atheroscle rosis of aorta 68150833 Carotid ar mateo stenosis 42746135 new finding - will obtain ultrasound advised to take daily asa 81mg - with food Diabetes mellitus 98516561 has increased to 7.7 a1c continue efforts at healthy diet and daily walk f/u with PCP for ongoing care Peripheral angiopathy due to diabetes mellitus 014511234 stable, circulatio n appears good BLE and skin intact Diabetic on insulin 496759594 [id number] MATTEO Elias, [facility], [address] [place] [address] 02/08/2015 13:26:08 02/13/2015 10:52:20 Benign essential hypertension 3597533 Blood pressure signif improved: home range bet 165 and 103 over the past week. To continue present dose of Lisinopril 40mg/d and f/u in 3 mo. Continue home BPs twice weekly. Carotid bruit 657336107 noted on exam last wk. Sched for u/s today at 2 pm.. Hypothyroidism 48753270 Has been taking 88 mcg daily since 07/2014 when TSH was high at 18. Now over replaced. Will have pt reduce dose to 6.5 tabs/wk and f/u in 3 mo. [id number] MATTEO Elias, [facility], [address] [place] [address] 02/14/2015 08:11:35 02/15/2015 13:54:07 Megaloblastic anemia due to vitamin B>12< deficiency 53655200 [id number] MATTEO Elias, [facility], [address] [place] [address] 03/14/2015 08:13:10 03/15/2015 12:50:35 Megaloblastic anemia due to vitamin B>12< deficiency 53180084 [id number] MATTEO Elias, [facility], [address] [place] [address] 04/15/2015 08:28:57 04/15/2015 08:48:36 Anemia 318582397 [id number] MATTEO Elias, [facility], [address] [place] [address] 05/13/2015 08:35:07 05/13/2015 09:27:57 Megaloblastic anemia due to vitamin B>12< deficiency 06802486 [id number] MATTEO Elias, [facility], [address] [place] [address] 06/04/2015 07:44:41 06/04/2015 08:47:58 Screening mammography 13638447 Benign ess ential hypertension 5851866 Blood pressure at goal with 2-20mg tabs lisinopril . continue to work on diet, exercise, and lowering salt intake as discussed Mixed hyperlipidemia 762444704 continue to work on diet and exercise as discussed Type 2 lexa betes mellitus without complication 869725510 enc less ice cream and incr exercise Exercise limited by PVD Acquired hypothyroidism 902154990 at goal Continue present dose at hs. Repeat TSH in 3 mo. Carotid ar mateo stenosis 39885666 bilat reviewed u/s and referred to vascular surgery Pt very reluctant to have any interventi on Discussed at length her incr risk of CVD d/t 70% occlusion of ICA's. [id number] MATTEO Elias, [facility], [address] [place] [address] 06/10/2015 08:34:14 06/10/2015 09:07:16 Megaloblastic anemia due to vitamin B>12< deficiency 67472368 [id number] MATTEO Elias, [facility], [address] [place] [address] 07/11/2015 08:36:16 07/12/2015 09:04:54 Megaloblastic anemia due to vitamin B>12< deficiency 36409175 [id number] MATTEO Elias, [facility], [address] [place] [address] 08/08/2015 08:38:38 08/21/2015 14:26:21 Megaloblastic anemia due to vitamin B>12< deficiency 30535752 D53.1 [id number] Christel Parada MD , [facility], [address] [place] [address] 09/03/2015 08:37:56 09/03/2015 09:29:03 Benign essential hypertension 4479317 I10 Blood pressure at goal ,continue to work on diet, exercise, and lowering salt intake as discussed Mixed hyperlipidemia 267 708955 E78.2 Cholestero l is not at goal though pt intolerant of any med. Pt decidedly not interested in trying another medication to lower lipids. Continue to work on diet and exercise as discussed Diabetes mellitus 057686 09 E11.69 fairly well controlled . Active or passive immunization 896587745 Z23 [id number] Ankush Rao MD , [facility], [address] [place] [address] 09/11/2015 08:36:14 09/11/2015 08:58:12 Megaloblastic anemia due to vitamin B>12< deficiency 79763354 D53.1 [id number] Puja Nettles NP , [facility], [address] [place] [address] 10/09/2015 08:38:12 10/09/2015 09:08:16 Megaloblastic anemia due to vitamin B>12< deficiency 76516264 D53.1 [id number] Norman Good MD , [facility], [address] [place] [address] 11/11/2015 08:10:57 11/11/2015 09:04:27 Megaloblastic anemia due to vitamin B>12< deficiency 92817645 D53.1 [id number] Beto Villarreal, [facility], [facility] [address] [place] [address] 11/20/2015 07:15:57 11/20/2015 08:17:37 Type 2 diabetes mellitus without complication 205443447 E11.9 No retinopath y or other ocular manifestat ions of diabetes Cataract 923592202 H25.8 19 Not visually significan t, C/W night driving complaints 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 4 [id number] Puja Nettles NP , [facility], [address] [place] [address] 12/03/2015 08:03:46 12/03/2015 09:24:37 Megaloblastic anemia due to vitamin B>12< deficiency 99652413 D53.1 Type 2 lexa betes mellitus without complication 056153396 E11.9 Acquired hypothyroidism 273349053 E03.9 sl low TSH - will decrease dose by one tab/week and repeat TSH 2months goal is to keep her TSH 2-4 to avoid tachycardi a Carotid ar mateo stenosis 87000077 I65.29 new finding - will obtain ultrasound advised to take daily asa 81mg - with food Diabetic on insulin 1707 27691 Z79.4 Peripheral vascular disease 662642400 I73.9 Atheroscle rosis of aorta 40057225 I70.0 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 25530454 I70.209 Intermitte nt claudication 21801177 I73.9 [id number] Norman Good MD , [facility], [address] [place] [address] 12/09/2015 09:08:15 12/09/2015 10:36:04 Megaloblastic anemia due to vitamin B>12< deficiency 62200789 D53.1 [id number] Norman Good MD , [facility], [address] [place] [address] 01/06/2016 08:31:33 01/06/2016 09:17:02 Megaloblastic anemia due to vitamin B>12< deficiency 65410134 D53.1 [id number] Norman Good MD , [facility], [address] [place] [address] 02/03/2016 08:37:02 02/05/2016 11:01:28 Megaloblastic anemia due to vitamin B>12< deficiency 26028901 D53.1 [id number] Norman Good MD , [facility], [address] [place] [address] 03/02/2016 08:33:48 03/02/2016 08:57:52 Megaloblastic anemia due to vitamin B>12< deficiency 71316354 D53.1 [id number] Puja Nettles NP , [facility], [address] [place] [address] 03/10/2016 09:09:13 03/10/2016 10:20:11 Adult health examination 983337203 Z00.00 see Risk Assessment and Lifestyle Change Counseling section above Counseling 693369528 Z71 .9 Mixed hyperlipidemia 267 182804 E78.2 Cholestero l is not at goal - unable to tolerate statin, taking baby asa continue fish oil, low fat high fiber diet enc to exercise 30min daily -walking Benign ess ential hypertension 6643762 I10 Carotid ar mateo stenosis 63349102 I65.29 stable - has f/u with vascular surgeon in August Hypothyroidism 86898128 E03.9 stable Atheroscle rosis of aorta 79649565 I70.0 Type 2 lexa betes mellitus without complication 959930245 E11.9 worsening A1C - increase to 1500mg metformin daily declines nutrition consult recheck 3mos Disorder o f vitamin B12 436021290 E53.8 trial off B12 per pt request -unable to find lab with initial low reading - add oral supplement will recheck in 6mos - report any side effects or concerns. [id number] Puja Nettles NP FP, [facility], [address] [place] [address] 06/09/2016 09:13:18 06/16/2016 13:44:07 Benign essential hypertension 8477019 I10 at goal - continue to work on diet, exercise, and lowering salt intake as discussed Mixed hyperlipidemia 267 413774 E78.2 not at goal but unable to tolerate statinscon tinue to work on diet and exercise as discussed Type 2 lexa betes mellitus without complication 076705190 E11.9 A1C improved despite lowering metformin back to 1000mg Carotid ar mateo stenosis 85102220 I65.29 stable - has f/u with vascular surgeon in August [id number] Puja Nettles NP FP, [facility], [address] [place] [address] 03/16/2017 08:22:25 03/16/2017 09:07:47 Adult health examination 253662470 Z00.00 see Risk Assessment and Lifestyle Change Counseling section above Counseling 927310788 Z71 .9 Benign ess ential hypertension 0475563 I10 Blood pressure NOT at goal. Discussed low salt diet options, add HCTZ -call to discuss home readings 2-3weeks - rtc 3mos for recheck. Mixed hyperlipidemia 267 410472 E78.2 not at goal but unable to tolerate statinscon tinue to work on diet and exercise as discussedC ontinue ASA and fish oil. Hypothyroidism 23509180 E03.9 stable Atheroscle rosis of aorta 72390002 I70.0 unable to tolerate statin.Enc daily exercise, ASA, fish oil. [id number] KYLEIGH Shah FP, [facility], [address] [place] [address] 05/18/2017 08:45:57 05/18/2017 09:51:14 Urinary tract infectious disease 73708571 N39.0 Patient instructed to push fluids, to follow up for persistent or worsening symptoms or fever or back pain. [id number] REYNA Mobley, [facility], [address] [place] [address] 06/15/2017 08:12:25 06/15/2017 08:42:25 Benign essential hypertension 7102816 I10 Blood pressure NOT at goal. Trial of chlorthali done. RTC one month -call sooner prn concerns. Mixed hyperlipidemia 267 757074 E78.2 not at goal but unable to tolerate statinscon tinue to work on diet and exercise as discussedC ontinue ASA and fish oil. Hypothyroidism 03923241 E03.9 low TSH - will stop the 1/2 tab on Sundays and recheck 3mos - advosed pt re need to avoid afib, tachycardi a. Active or passive immunization 338590425 Z23 Type 2 lexa betes mellitus without complication 511616562 E11.9 A1C improved [id number] REYNA Mobley, [facility], [address] [place] [address] 07/27/2017 09:03:25 07/27/2017 09:36:19 Diabetes mellitus 71427926 E11.69 E11.21 stable -sl improved. continue efforts at healthy diet and daily walk Benign ess ential hypertension 0282476 I10 Blood pressure at goal. Some lows on home readings. Continue chlorthali done. RTC 3 month -call sooner prn concerns. Bring home equipment to visit. Call with readings <100/50 Mixed hyperlipidemia 267 155255 E78.2 not at goal but unable to tolerate statinscon tinue to work on diet and exercise as discussedC ontinue ASA and fish oil. Carotid ar mateo stenosis 49219936 I65.29 continue vascular f/u and daily asa 81mg - with food [id number] REYNA Mobley, [facility], [address] [place] [address] 10/26/2017 09:55:28 10/26/2017 10:40:47 Benign essential hypertension 9242888 I10 Blood pressure at goal Mixed hyperlipidemia 267 117306 E78.2 not at goal but unable to tolerate statinscon tinue to work on diet and exercise as discussedC ontinue ASA and fish oil. Diabetes mellitus 470359 09 E11.21 stable - room for improvemen t. continue efforts at healthy diet and daily walk Atheroscle rosis of aorta 53190184 I70.0 unable to tolerate statin.Aj l try getting PA for injectable . Enc daily exercise, ASA, fish oil. [id number] Beto Villarreal, [facility], [facility] [address] [place] [address] 01/14/2018 08:38:41 01/14/2018 09:37:06 Hypermetropia 07025346 H52.03 Presbyopia 36586901 H52. 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 Will add amlodipine - rtc 2wk for BP recheck, call sooner with concerns. Mixed hyperlipidemia 267 137815 E78.2 Cholestero l is not at goal. Unable to tolerate statins. Continue to work on diet and exercise as discussed. Consider Pradaxa Type 2 lexa betes mellitus without complication 127009455 E11.9 A1C stable and at goal of <8. [id number] Beto Villarreal, [facility], [facility] [address] [place] [address] 06/03/2018 09:39:53 06/03/2018 15:15:08 Optic neuritis 05141684 H46.01 No APD, normal color vision, no change in vision.For med and unformed visual hallucinat ions over past week. [id number] Puja Nettles NP FP, [facility], [address] [place] [address] 06/22/2018 07:26:42 06/22/2018 08:06:01 Mixed hyperlipidemia 832398374 E78.2 Cholestero l is not at goal. Unable to tolerate statins. Continue to work on diet and exercise as discussed. Consider Pradaxa Benign ess ential hypertension 7987807 I10 Blood pressure at goal - left arm.FOllow ed by vascular surgeon. Screening mammography 24 766896 Z12.31 Type 2 lexa betes mellitus without complication 686668279 E11.9 A1C not at goal of <8. -adjust insulin 2U/day until closer to goal. CDE referral [id number] MD FROYLAN Wilhelm, [facility], [address] [place] [address] 07/11/2018 13:18:33 07/11/2018 14:47:22 Dizziness 731227405 R42 unclear cause Cerebrovas cular accident 357314568 I63.9 probable given sx; check MRI, continue ASA Electrocar diogram abnormal 473867147 R94.31 check Echo Benign ess ential hypertension 4373315 I10 high; treat and f/u 2 days [id number] MD FROYLAN Wilhelm, [facility], [address] [place] [address] 07/25/2018 08:15:08 07/25/2018 09:28:14 Hyperlipidemia 98488575 E78.5 not controlled , cannot tolerate statins, consider injectable meds. Benign ess ential hypertension 3432862 I10 high; treat and f/u 2 days; if cannot control refer to [facility] Cerebrovas cular accident 926565755 I63.9 confirmed; she is aware of dx and implicatio ns; we spent 25/25 minutes counseling re stroke and implicatio ns [id number] REYNA Mobley, [facility], [address] [place] [address] 09/21/2018 07:01:26 09/21/2018 07:46:44 Benign essential hypertension 0344107 I10 Blood pressure NOT at goal. Consulted with SE - increase chlorthali done to 50mg and recheck 2-3wk. Mixed hyperlipidemia 267 345740 E78.2 continue to work on diet and exercise as discussed Fatigue 00584249 R53.83 Carotid ar mateo stenosis 73500453 I65.29 continue vascular f/u and daily asa 81mg - with food - close monitoring of HTN [id number] REYNA Mobley, [facility], [address] [place] [address] 11/02/2018 07:50:14 11/02/2018 08:37:10 Benign essential hypertension 8484391 I10 Blood pressure NOT at goal. She will go home and take the amlodipine today, tomorrow and Wednesday and rtc then for BP clinic. Bring all meds to appt. to review with nursing. COnsider VNA assist with meds. Mixed hyperlipidemia 267 595268 E78.2 unable to tolerate statins - high risk = continue to work on diet and exercise as discussed Carotid ar mateo stenosis 00930893 I65.29 continue vascular f/u and daily asa 81mg - with food - close monitoring of HTN, take all meds as directed. Diabetes mellitus 849470 09 E11.21 stable - [facility] continue efforts at healthy diet and daily walk Cerebrovas cular accident 934008227 I63.9 bring all meds to BP clinic and have nurse review with pt - consider VNA assist Type 2 lexa betes mellitus without complication 684628517 E11.9 A1C not at goal of <8. -adjust insulin 2U/day until closer to goal. CDE referral Peripheral vascular disease 305236788 I70.0 [id number] REYNA Mobley, [facility], [address] [place] [address] 11/18/2018 14:46:25 11/18/2018 15:29:45 Benign essential hypertension 7048365 I10 Blood pressure closer to goal. Will continue to monitor closely - she seems to marshall a good system set up now for meds. [id number] REYNA Mobley, [facility], [address] [place] [address] 01/17/2019 09:48:00 01/17/2019 10:32:09 Mixed hyperlipidemia 670912513 E78.2 unable to tolerate statins - high risk = continue to work on diet and exercise as discussed Type 2 lexa betes mellitus without complication 974377863 E11.9 A1C not at goal of <8. -adjust insulin 2U/day until closer to goal. CDE referral Hypothyroidism 23983051 E03.9 low TSH - recheck today Benign ess ential hypertension 4916443 I10 Blood pressure closer to goal. Will continue to monitor closely - she seems to have a good system set up now for meds. Will see what Dr Muñoz feels for target. [id number] Beto Villarreal, [facility], [facility] [address] [place] [address] 01/20/2019 07:13:48 01/20/2019 07:57:28 Hypermetropia 42517775 H52.03 Type 2 lexa betes mellitus without complication 458910759 E11.9 No retinopath y or other ocular manifestat ions of diabetes Cataract 837741654 H25.8 13 Cataract consistent with decreased BCVA. Not affecting ADL at this time. Retinoschisis 75235466 H 33.109 Right eye-no holes, tears or RD Narrow angle 814569392 H 40.033 patent iridotomie s OU Presbyopia 34035539 H52. 4 [id number] Maame Gaviria MD , [facility], [address] [place] [address] 04/02/2019 09:47:17 04/02/2019 10:32:30 Urinary tract infectious disease 85640138 N39.0 Patient instructed to push fluids, to follow up for persistent or worsening symptoms or fever or back pain. [id number] Puja Nettles NP , [facility], [address] [place] [address] 06/01/2019 09:43:35 06/01/2019 10:35:23 Adult health examination 162143435 Z00.00 see Risk Assessment and Lifestyle Change Counseling section above Counseling 552815823 Z71 .9 Depression screening 171 741628 Z13.89 depression screening tool administer ed, entered into emr, scored and discussed, time greater than 7.5 minutes Benign ess ential hypertension 6336466 I10 Blood pressure at goal after repeat with electronic cuff/3 readings. - she seems to have a good system set up now for meds. Med refills. Mixed hyperlipidemia 267 444698 E78.2 unable to tolerate statins - high risk = continue to work on diet and exercise as discussed Type 2 lexa betes mellitus without complication 757845929 E11.9 A1C not at goal of <8. -adjust insulin 2U/day until closer to goal. CDE referral Peripheral vascular disease 413790502 I70.[address] Muñoz [facility] 85522846 E03.9 stable Coronary arteriosclerosis in [place] artery 2305439900 107 I25.10 Carotid ar mateo stenosis 99089326 I65.29 continue vascular f/u and daily asa 81mg - with food - close monitoring of HTN, take all meds as directed. [id number] Puja Nettles NP , [facility], [address] [place] [address] 07/11/2019 15:57:45 07/11/2019 16:36:38 Urinary tract infectious disease 18259049 N39.0 Patient instructed to push fluids, to follow up for persistent or worsening symptoms or fever or back pain. Benign ess ential hypertension 9141183 I10 Blood pressure not at goal. - bring home machine an readings to next visit [id number] REYNA Mobley, [facility], [address] [place] [address] 09/05/2019 08:29:03 09/05/2019 09:27:16 Urinary tract infectious disease 29658531 N39.0 Patient instructed to push fluids, to follow up for persistent or worsening symptoms or fever or back pain. If sx do not improve will come in to give a better urine specimen for culture. Benign ess ential hypertension 1268771 I10 Blood pressure not at goal. -will talk with Dr Higginbotham desired control/go al BP Peripheral vascular disorder due to diabetes mellitus 230710754 E11.51 diabetes in good control Carotid ar mateo stenosis 05251914 I65.29 continue vascular f/u and daily asa 81mg - with food - close monitoring of HTN, take all meds as directed. [id number] Jung Lizama MD FP, [facility], [address] [place] [address] 11/17/2019 14:15:21 11/17/2019 17:01:59 Pain of toe of right foot [id number] 84009 M79.674 Suspect gout, will check labs, r/o fracture.E ncouraged diet changes, hydration, tylenol for painF/U pending results. Gout 79098076 M10.9 Reviewed xray, discussed with Dr. Lizama. Will start colchicine . Discuss Medication risks and side effects.xr ay negative for fracture, mild arthritis present. [id number] REYNA Mobley, [facility], [address] [place] [address] 02/02/2020 11:13:44 02/02/2020 15:49:18 Benign essential hypertension 4825200 I10 Blood pressure not at goal. - followed by cardio -discussed maximizing things she can change -sodium limits, exercise, DM control Mixed hyperlipidemia 267 847185 E78.2 unable to tolerate statins - high risk = continue to work on diet and exercise as discussed -has started Repatha, no obvious se's - followed by cardio Type 2 lexa betes mellitus without complication 816682385 E11.9 A1C not at goal of <8. -adjust insulin - split it to take 10U in AM and 25U hs. Keep track of readings and f.u 3-4wk - call sooner with lows or other concerns. Peripheral vascular disorder due to diabetes mellitus 427460586 E11.51 discussed need to keep diabetes in good control Cerebrovas cular accident 734941788 I63.9 cardio recently started pt on Repatha = f/u labs this month -takin ASA and Plavix. [id number] MD FROYLAN Boone, [facility], [address] [place] [address] 04/29/2020 09:26:43 04/30/2020 14:49:02 Screening for disorder 622787690 Z11.59 Gout 01612142 M10.9 L great toe x 1 week. Last bout 10/2019. Will start Indomethac in 25 mg 2 tablets TID, discontinu e 2 to 3 days after resolution of clinical signs. Reviewed gout diet. Advised to f/u if sxs worsen or persist x 7 days or longer. Patient agreed to plan. [id number] REYNA Mobley, [facility], [address] [place] [address] 06/18/2020 09:39:09 06/21/2020 09:07:19 Allergic rhinitis 78264575 J30.9 advised to report persisent or inc sx. [id number] Dione Silvestre MD , [facility], [address] [place] [address] 10/30/2020 11:24:33 11/01/2020 11:49:10 Benign essential hypertension 0335835 I10 Blood pressure at goal. - followed by cardio -discussed maximizing things she can change -sodium limits, exercise, DM control Type 2 lexa betes mellitus without complication 072923932 E11.9 A1C not at goal of <8. Keep track of readings and f.u 3 mths - call sooner with lows or other concerns. Cerebrovas cular accident 491513820 I63.9 LDL less than 100 on Repatha. Labs sent cardiology Peripheral vascular disorder due to diabetes mellitus 471168577 E11.51 discussed need to keep diabetes in good control, encouraged to walk about the house more often. [id number] Kimberly Enciso MD , [facility], [address] [place] [address] 05/27/2021 11:56:18 05/27/2021 12:35:22 Urinary tract infectious disease 89739979 N39.0 Patient instructed to push fluids, to follow up for persistent or worsening symptoms or fever or back pain. Increased frequency of urination 989804277 R35.0 Benign ess ential hypertension 6739828 I10 Blood pressure at goal. - followed by cardio -discussed maximizing things she can change -sodium limits, exercise, DM control Type 2 lexa betes mellitus without complication 984003171 E11.9 A1C not at goal of <8. Keep track of readings and f.u 3 mths - call sooner with lows or other concerns. Active or passive immunization 392672625 Z23 [id number] Kimberly Enciso MD , [facility], [address] [place] [address] 10/01/2021 11:06:47 10/15/2021 14:55:04 Adult health examination 703630593 Z00.00 see Risk Assessment and Lifestyle Change Counseling section above Counseling 405865723 Z71 .9 including cardiovasc ular risk reduction counseling Depression screening 171 756511 Z13.31 depression screening tool administer ed, entered into emr, scored and discussed, time greater than 7.5 minutes Screening for alcohol abuse 063232836 Z13.39 Chronic ki dney disease due to type 2 diabetes mellitus 1106716146 08 E11.22 N18.30 Hypothyroidism 01308118 E03.9 stable Mixed hyperlipidemia 267 019072 E78.2 unable to tolerate statins - high risk = continue to work on diet and exercise as discussed -on Repatha, no obvious se's - followed by cardio Benign ess ential hypertension 6030762 I10 Blood pressure at goal. - followed by cardio -discussed maximizing things she can change -sodium limits, exercise, DM control Peripheral vascular disease 305680114 I70.[address] Muñoz Uncontroll ed type 2 diabetes mellitus 599266793 E11.65 improved = continue heart healthy low carb diet. insulin and metformin Toenail thickened 589268 000 R23.8 Carotid ar mateo stenosis 22706115 I65.29 continue vascular f/u and daily asa 81mg - with food - close monitoring of HTN, take all meds as directed. [id number] Christel Paraad MD Podiatry, [facility] [address] [place] [address] 11/13/2021 08:40:37 11/14/2021 16:49:18 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 001987516 E11.59 Chronic ki dney disease stage 3 977914890 N18.30 Hypertrophy of nail 3065 4002 L60.2 [id number] Amparo Bolanos MD , [facility], [address] [place] [address] 02/05/2022 14:56:40 02/24/2022 16:32:53 Cerebrovascular accident 204776628 I63.9 episode initially thought to be acute stroke, but workup negative and all sx resolvedli amy related to uncontroll ed hypothyroi dismwill cancel home PT at pt request since she is at baselineon asa 81 and plavix Hypothyroidism 87268301 E03.9 pt will continue med, recheck tsh 2 weeks Mixed hyperlipidemia 267 716472 E78.2 looking at old notes, cardio note 11/14 states we had stopped zetia note 10/14 says she is on repatha and zetiano refill on zetia from this office since 04/13 as i can seewill advise dtr Gout 19382649 M10.9 resolved Advance di rective discussed with patient 686490887 Z71.89 MOLST discussed and filled out with pt and dtr gay, original to pt, copy to Alexis CPR, Ventilatio n short term only, rest all ok [id number] Kimberly Enciso MD , [facility], [address] [place] [address] 02/19/2022 07:33:20 02/19/2022 08:00:06 Gout 91329093 M10.9 clearly gout attack - this time in opposite foot.had severe diarrhea with incontinen ce with colchicine will treat with prednisone 5d - monitor glucose bid, close monitoring .consider allopurino l. Cerebrovas cular accident 083505354 I63.9 close monitoring , safe in home situation with supports Benign ess ential hypertension 2897625 I10 BP low today - hold chlorthali done - may help with gout as well.CLose monitoring . Report readings, rtc one week. Chronic ki dney disease due to type 2 diabetes mellitus 7879032754 08 E11.22 N18.30 labs done today Peripheral vascular disease 711155370 I70.[address] Muñoz and cardio. [id number] Kimberly Enciso MD , [facility], [address] [place] [address] 03/04/2022 14:25:19 03/26/2022 13:47:57 Gout 67862055 M10.9 persistant flare, cholchicin e not aborting flare- trial of longer course prednisone - pts BS's well controlled - high uric acid- on diuretic- previous note states stopped- also amlodipine not on med list- stopped in hosp, will review meds while pt has meds in front of her from homereview ed xray with famil- neg for infection- 'bony destructio n' felt due to gout/radio logist. no sign of infection- awaiting labs consulted with Dr Enciso add allopurino l when flare subsided Cerebrovas cular accident 927116810 I63.9 review of discharge- 'profound paresis, seizure acitivty- cont asa/plavix Essential hypertension 91341797 I10 will track home readings, review meds from pts home- does not have with her today- has been helping with meds amlodipine not on activemed list.- help at hosp- discharge note states 'but BP trending up- to monitor Hypothyroidism 79683229 E03.9 TSH > 500- pt has restarted 88 mcglevothy roxine with TSH now 9- cont med.- repest after 8 wks [id number] Kimberly Enciso MD FP, [facility], [address] [place] [address] 04/01/2022 08:24:40 04/01/2022 09:17:11 Essential hypertension 64873020 I10 at goal for pt Mixed hyperlipidemia 267 210585 E78.2 Cholestero l is at goal Continue to work on diet and exercise as discussed Chronic ki dney disease due to type 2 diabetes mellitus 1451012993 08 E11.22 N18.30 labs done todayhusba nd helping manage insulin /all meds.reduc ed sodium diet. Cerebrovas cular accident 640084401 I63.9 close monitoring , safe in home situation with supports Gout 73147600 M10.9 clearly gout attack - this time in opposite foot.had severe diarrhea with incontinen ce with colchicine will treat with prednisone 5d - monitor glucose bid, close monitoring .consider allopurino l. Carotid ar mateo stenosis 43565239 I65.29 continue vascular f/u and daily asa 81mg - with food - close monitoring of HTN, take all meds as directed. [id number] Christel Parada MD Podiatry, [address] [address] 04/07/2022 08:43:56 04/07/2022 09:15:54 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 535694285 E11.59 Chronic ki dney disease stage 3 095520361 N18.30 Hypertrophy of nail 3065 4002 L60.2 [id number] Aleja Montoya MD FP, [facility], [address] [place] [address] 04/14/2022 16:39:07 04/15/2022 11:46:37 Gout 47676247 M10.9 strongly recommend allopurino l when asymptomat ic x 2 weekscanno t use ibuprofen due to Cr 2.1; cannot use colchicine as having terrible diarrhea Essential hypertension 07406181 I10 review of chart suggests should NOT be taking amlodipine at this point. [id number] Kimberly Enciso MD FP, [facility], [address] [place] [address] 04/24/2022 10:46:42 04/24/2022 11:20:13 Cobalamin deficiency 317136649 E53.8 Gout 42158085 M10.9 will send letter to nephrologi st re ongoing gout management . Renal diso rder due to type 2 diabetes mellitus 972715512 E11.21 forward labs to nephrol with note re gout mgmt. 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 125175952 E11.51 [id number] Kimberly Enciso MD FP, [facility], [address] [place] [address] 05/22/2022 10:59:12 05/22/2022 11:33:34 Cerebrovascular accident 941081516 I63.9 close monitoring , safe in home situation with supports Gout 23068550 M10.9 start on renal dosing of allopurino l = copy of OV note to nephrologi st Hypothyroidism 16366589 E03.9 stable Benign ess ential hypertension 8449565 I10 BP at goal on meds. Mixed hyperlipidemia 267 952143 E78.2 Cholestero l is at goal Continue to work on diet and exercise as discussed Peripheral vascular disease 108128772 I70.[address] Muñoz and cardio. Chronic ki dney disease due to type 2 diabetes mellitus 1852102947 08 E11.22 N18.30 decrease to one tab metformin qd x 1 wk, then stop - check BG bid and keep record - we will adjust insulin accordingl y. Carotid ar mateo stenosis 08389764 I65.29 continue vascular f/u and daily asa 81mg - with food - close monitoring of HTN, take all meds as directed. [id number] Christel Parada MD Podiatry, [facility] [address] [place] [address] 06/03/2022 10:32:50 06/03/2022 11:01:03 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 780885512 E11.59 Chronic ki dney disease stage 3 853507370 N18.30 Hypertrophy of nail 3065 4002 L60.2 [id number] Kimberly Enciso MD FP, [facility], [address] [place] [address] 06/18/2022 09:32:21 06/25/2022 08:25:49 Essential hypertension 78020633 I10 at goal Mixed hyperlipidemia 267 389491 E78.2 Cholestero l is at goal Continue to work on diet and exercise as discussed Cerebrovas cular accident 477003271 I63.9 close monitoring , safe in home situation with supports Gout 59359066 M10.9 start on renal dosing of allopurino l = copy of OV note to nephrologi [facility] ki dney disease due to type 2 diabetes mellitus 2758576709 08 E11.22 N18.30 stabilized - followed by nephro Uncontroll ed type 2 diabetes mellitus 238759463 E11.65 agrees to referral to CDE - will need simple regimen for insulin dosing - maybe mixed insulin for now inc to Lantus 50U in AM and 15U in PM [id number] Kimberly Enciso MD , [facility], [address] [place] [address] 07/16/2022 10:38:02 07/16/2022 14:36:47 Essential hypertension 76305772 I10 BP not at goal - pt states at goal at home - has nephrology appt next week. Will have daughter bring home BP machine to next appt. RTC 2-3wk with BP readings and machine Mixed hyperlipidemia 267 295364 E78.2 Cholestero l is at goal Continue to work on diet and exercise as discussed Cerebrovas cular accident 322486479 I63.9 close monitoring , safe in home situation with supports Renal diso rder due to type 2 diabetes mellitus 353536504 E11.21 pt agrees to see CDE to help manage diabetes better. [id number] Jessy Graham, RN, BSN, [facility] , [facility] [address] [place] [address] 08/04/2022 07:46:50 08/10/2022 15:57:37 Uncontrolled type 2 diabetes mellitus 906124295 E11.65 -In person appt at [facility] with Pt and , Vito.-Kind ly referred by Puja Nettles NP.-Never seen by diabetes education before at [facility].-Diagn osed about 20 years ago.-Last A1C was 8.2% in April.-Had a stroke in January and had weakness on her left side, however, the only residual problems the has noticed from the stroke are memory problems. She has trouble remember what day of the week it is.-Sylvia artis reports that she did not have trouble until she had the stroke.-Al so had a stroke 2 years prior to the January stroke and her symptoms were quite similar. -Pt. forgot to bring meter today.-Rep orts checking glucose 2x/day. Checking at 4 am and 3-4 pm (before dinner).-Shantell matos's fasting glucose was 94 mg/dl.-Mitchel carpenter reports that the morning numbers are closer to the target range (80-130 mg/dl), however, her blood sugars before dinner are above 200 mg/dl. -Current Medication s:Lantus BID:54 units in the [id number] units at night. -Reports she has felt dizzy and hungry in the past and passed out from it, however, she reports this does not happen often. -PLAN: Communicat e with Puja Nettles NP when she wants to consider another medication or treatment option to help Elyssa with her blood sugars. Reviewed how she might be in need for an incretin hormone to help blood sugars or a short acting insulin with her largest meal (ie: Lunch). With her A1C currently at 8.2%, she may be okay to go without treatment until this number should increase to above 9%. Encouraged pt consider making small changes to her diet, such as eating less donuts, ice cream, muffins, chips, etc. Pt's reports she does not eat very much when she does eat. [id number] Kimberly Enciso MD , [facility], [address] [place] [address] 10/07/2022 10:03:18 10/14/2022 14:58:09 Depression screening 826006181 Z13.31 depression screening tool administer ed, entered into emr, scored and discussed, time greater than 7.5 minutes Screening for alcohol abuse 574330249 Z13.39 Adult heal th examination 204325032 Z00.00 see Risk Assessment and Lifestyle Change Counseling section above Counseling 367741645 Z71 .9 including cardiovasc ular risk reduction counseling Hypothyroidism 93820857 E03.9 stable Cerebrovas cular accident 024371375 I63.9 close monitoring , safe in home situation with supportsWo uld benefit from more help with med mgmt - resistant to help in homeDaught er is liason she trusts Essential hypertension 46151334 I10 BP not at goal - restart lisinopril = Will have daughter bring home BP machine to next appt. RTC 2-3wk with BP readings and machine Gout 99384729 M10.9 stable on allopurino l low dose Hyperglyce kathryn due to type 2 diabetes mellitus 4240924866 50877 E11.65 adjust insulin again, CDE appt next weekCOntin ue to enc help in home [id number] Kimberly Enciso MD , [facility], [address] [place] [address] 12/09/2022 10:27:19 12/09/2022 13:43:20 Essential hypertension 01837185 I10 BP not at goal - restart lisinopril = Will have daughter bring home BP machine to next appt. RTC 2-3wk with BP readings and machine Mixed hyperlipidemia 267 682923 E78.2 Cholestero l is at goal Continue to work on diet and exercise as discussed Hyperglyce kathryn due to type 2 diabetes mellitus 3953523118 60916 E11.65 Pt agrees to start Trulicity - stressed need to take only once weekly -daughter will tell and also post a sign as reminder.C Ontinue to enc help in home Chronic ki dney disease stage 3B 547555392 N18.32 cont f/u with nephrologi st Tinea pedis 1040248 B35. 3 Cerebrovas cular accident 053087324 I63.9 close monitoring , safe in home situation with supportsWo uld benefit from more help with med mgmt - resistant to help in homeDaught er is liason she trusts Peripheral vascular disease 005023491 I70.[address] Muñoz and cardio. [id number] Christel Parada MD Podiatry, [address] [address] 02/16/2023 08:08:32 02/16/2023 08:51:23 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 315913802 E11.59 Chronic ki dney disease stage 3 134104006 N18.30 Hypertrophy of nail 3065 4002 L60.2 [id number] Kimberly Enciso MD FP, [facility], [address] [place] [address] 02/19/2023 08:45:08 02/19/2023 09:30:21 Essential hypertension 01620236 I10 BP at goal with three reading BP machine =is back on lisinopril = Will have daughter bring home BP machine to next appt. 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 pt ed on importance of good blood sugar control, monitor 1 yr with CEE Cataract 754415630 H25.8 13 refer to EPN, was there last year. Narrow angle 714496917 H 40.033 patent iridotomie s OU, IOP wnl OU. Presbyopia 91042438 H52. 4 Hypermetropia 15842036 H 52.03 Nonexudati ve age-related macular degeneration 643311468 H35.3112 difficult view of macula on exam and OCT 2' cataracts. She will check with PCP before considerin g starting AREDS 2 vitamins. h/o kidney disease. Observe. [id number] Christel Parada MD , [facility], [address] [place] [address] 04/21/2023 10:53:37 04/21/2023 15:10:12 Chronic kidney disease due to type 2 diabetes mellitus 6074369342 08 E11.22 N18.30 -Hgba1c 7.2 in good range for age and co-morbidi ties 02/19/23.- Microalb 607 12/09/22; creat 1.9 stable; Sees nephrology in [place].-T rulicity was too expensive so hasn't been taking.-Wo nders about alternativ e to Jardiance. -Checking glucose twice daily.-F/u with me in 6 weeks with labs and will see if we can consolidat e her Lantus dosing into one dose. Would avoid Metformin, SFU with renal function. May be able to try Januvia renal dosing instead of Jardiance since expensive for pt. Benign ess ential hypertension 7888207 I10 Stable: cont current regimen. Carotid ar mateo stenosis 46743938 I65.29 Complex CAD medically managed with cardiology note 03/2023 reviewed.O hanny Stone and Luis with statin allergy.Al so follows with vascular, Dr. Muñoz with h/o right CEA and know left carotid stenosis medically managed. [id number] Celia Holley PA-C , [facility], [address] [place] [address] 05/31/2023 10:21:59 05/31/2023 11:01:23 Chronic kidney disease due to type 2 diabetes mellitus 5289619426 08 E11.22 N18.30 -Hgba1c 8.6 05/27/23, was 7.2 02/19/23.- Microalb 607 12/09/22; creat 1.9 stable 05/26/23; Sees nephrology in [place].-T rulicity was too expensive so hasn't been taking.-Wo nders about alternativ e to Jardiance (it is also very expensive for pt)-Checki ng glucose twice daily. CONSOLID ATE LANTUS INTO 1 DOSE AND TAKE LANTUS 60 U QAM ONLY AND ADD NOVOLOG 8 U BEFORE LUNCH MEAL (BIGGEST MEAL). THEY HAVE 45 TABS LEFT OF JARDIANCE SO CAN FINISH AND THEN AT F/U I CAN TITRATE UP THE NOVOLOG DOSING. THIS WILL BE MORE AFFORDABLE FOR PT. F/u for wellness with me in 2 months please. [id number] Christel Parada MD , [facility], [address] [place] [address] 07/01/2023 09:06:13 07/01/2023 12:23:54 Hyperkalemia 05018928 E87.5 Potassium level 5.8 in ED. Recheck today Electrocar diogram abnormal 979606056 R94.31 Recheck EKG, reviewed w/ SK, abnormal, needs nuclear ST & ECHO [id number] MD FROYLAN [place], [facility], [address] [place] [address] 07/06/2023 10:54:21 07/06/2023 11:46:49 Active or passive immunization 112521851 Z23 Hyperkalemia 26066188 E8 7.5 K+ 5.3 on repeat with creat 2.2; stable.Fol lows with nephrology in [place] with CKD III-IV Coronary arteriosclerosis 41194957 I25.10 Complex CAD medically managed with cardiology note 03/2023 reviewed.O n Repatha and Zetia with statin allergy; also plavix.Als o follows with vascular, Dr. Muñoz with h/o right CEA and know left carotid stenosis medically managed.H/ o CVA 2021 Carotid ar mateo stenosis 43353437 I65.29 Complex CAD medically managed with cardiology note 03/2023 reviewed.O n Repatha and Zetia with statin allergy.Al so follows with vascular, Dr. Muñoz with h/o right CEA and know left carotid stenosis medically managed. Chronic ki dney disease due to type 2 diabetes mellitus [id number] 08 E11.22 N18.30 -Hgba1c 8.6 05/27/23, was 7.2 02/19/23.- Microalb 607 12/09/22; creat 1.9 stable 05/26/23; Sees nephrology in [place]. Continue LANTUS 60 U QAM AND CONTINUE NOVOLOG 8 U BEFORE LUNCH MEAL (BIGGEST MEAL; novolog started last visit). D/C Jardiance (was very expensive for pt). Chronic ki dney disease stage 4 413285190 N18.4 [id number] MD FROYLAN Wilhelm, [facility], [address] [place] [address] 07/13/2023 09:06:35 07/13/2023 09:58:47 Hyperkalemia 69345268 E87.5 probably from lisinopril History of cerebrovascular accident 217301179 Z86.73 2021. Vitamin D deficiency 347 31527 E55.9 on 50,000 IU weekly Electrocar diogram abnormal 001297354 R94.31 check Echo Memory impairment 708031 006 R41.3 discussed future planning, offered advance care planning visit; it was accepted. disucssed stopping meds as an option, and (guessed) consequenc es of within 6-18 months, and MOLST which has full code except resuscitat ion [id number] Aleja Montoya MD , [facility], [address] [place] [address] 08/17/2023 08:24:22 08/17/2023 16:54:16 Renal disorder due to type 2 diabetes mellitus 787024217 E11.21 reviewed meds and HgbA1c; she is hovering around 8.3 and prefers to eat what she wants. unable to afford trulicity, using jardiance and insulin; cannot use metformin due to progressio n of kidney disease. next visit assess competency for medical decisions when have family visit on 09/07; could consider comfort care if something happened. check MOCA at next DM visit Vitamin D deficiency 347 62963 E55.9 on 50,000 IU weekly [id number] Aleja Montoya MD , [facility], [address] [place] [address] 09/07/2023 09:29:25 09/07/2023 17:59:03 Advance directive discussed with patient 434303134 Z71.89 Advanced Care Planning1. Advanced care planning was discussed for more than 15 minutes. 2. Participan ts included patient and family and they were given an opportunit y to decline discussion . 3. Health Care Proxy was discussed. 4. Patient has completed Health Care Proxy form. It was not given to take home. 5. Names(s) relationsh ip(s) of Health Care Proxy: Daughter Jonnie Jolley is #1, Daughter Shantel Jose is #2 (note that the numbers have been reversed on 2022 copy 6. MOLST was discussed. 7. Patient has completed MOLST form. 8. Details of discussion : we discussed her MOLST, which she already had in the chart. she stated when it's her time she just wants to go. Prior MOlst was DNR OK to intubate, OK dialysis OK nutr/hydr. We discussed, she feels now she wants to be DNR/DNI and to forgo dialysis in the setting of end of life, as well as artificial nutrition and hydration at the end of life. a priority for her is to remember her family always; she would not want to live if she did not recognize family. She does not have a firm physical line for QOL such as wheelchair , assisting bathing/to ileting etc.Lives with on their won, he is giving meds. we discussed ongoing monitoring of memory, next important point is medical decisions which she can still make today, and then safety, she does not want monitoring of her memory just to track her memory. 9. Follow up needed: [id number] Celia Holley PA-C , [facility], [address] [place] [address] 09/14/2023 14:24:45 09/14/2023 15:15:05 Adult health examination 579551350 Z00.00 Wellness exam: -Discussed setting up pill box and some barriers daughter feels, she will help pt and her to do this.-F/u in 2 months please. Depression screening 171 857019 Z13.31 depression screening tool administer ed Screening for alcohol abuse 405337314 Z13.39 Alcohol use screening tool administer ed Gout 75871236 M10.9 Renally dosed allopurino l refilled. Chronic ki dney disease stage 4 995667479 N18.4 Creat 1.7 08/10/23, was 2.2 TH 261 07/01/23.V itamin D 20 08/10/23; on weekly high dose vitamin D, ordered by dr. montoya. Daughter will ensure she is taking.Inés lows with nephrology ; Elizabeth requested last nephrology note.Lisin opril was decreased from 20 to 10 mg QD by nephrology . Chronic ki dney disease due to type 2 diabetes mellitus 6418381221 08 E11.22 N18.30 -Hgba1c 8.3 08/10/23, was 8.6 05/27/23, was 7.2 02/19/23.- Microalb 607 12/09/22 Sees nephrology in [place] as above. Decrease LANTUS from 60 U QAM to 55 U QAM AND CONTINUE NOVOLOG 12 U BEFORE LUNCH MEAL (BIGGEST MEAL; novolog started last visit). D/C Jardiance (was very expensive for pt). Hypothyroidism 71607670 E03.9 TSH 1.61 09/2022, cont levothyrox ine 75 mcg QAM Coronary arteriosclerosis 82089888 I25.10 Complex CAD medically managed with cardiology note 03/2023 reviewed.O n Repatha and Zetia with statin allergy; also plavix.Als o follows with vascular, Dr. Muñoz with h/o right CEA and know left carotid stenosis medically managed.H/ o CVA 2018. [id number] Lenka Jimenez, [facility], [facility] [address] [place] [address] 09/28/2023 08:36:09 09/29/2023 09:38:48 Cataract 954097408 H25.813 refer to EPN, was there last year. I referred her there 6 months ago but she did not go. Narrow angle 374406098 H 40.033 patent iridotomie s OU, IOP wnl OU. Nonexudati ve age-related macular degeneration 815631650 H35.3112 Appears dry on exam and OCT, but difficult view of macula on exam and OCT 2' cataracts. She will check with PCP before considerin g starting AREDS 2 vitamins. h/o kidney disease. Observe. 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 pt ed on importance of good blood sugar control. Observe. pt. is referred to ophthalmol ogist. [id number] Aleja Montoya MD , [facility], [address] [place] [address] 12/06/2023 09:42:38 12/06/2023 17:45:12 Benign essential hypertension 0094728 I10 Stable: cont current regimen with metoprolol succinate ER 25 mg QD, lisinopril 10 mg QD (was decreased from 20 mg QD by nephrology ) Chronic ki dney disease stage 4 465518312 N18.4 STABLE:Cre at 1.8 10/22/23, was 1.7 08/10/23, 2.2 TH 123 10/22/23, was 261 07/01/23.V itamin D 38.4 10/22/23, was 20 08/10/23; on weekly high dose vitamin D, ordered by dr. montoya. Daughter will ensure she is taking.Nep hrology note 11/30/23 reviewed. Has labs today for nephrology . Coronary arteriosclerosis 60590168 I25.10 Complex CAD medically managed with cardiology note 03/2023 reviewed.O n Repatha and Zetia with statin allergy; also plavix.Als o follows with vascular, Dr. Muñoz with h/o right CEA and know left carotid stenosis medically managed.H/ o CVA 2017. Hypothyroidism 76765859 E03.9 TSH 2.10 stable 10/22/23; cont levothyrox ine 75 mcg QAM Chronic ki dney disease due to type 2 diabetes mellitus 0554903361 08 E11.22 N18.30 -Hgba1c 7.7 10/22/23, was 8.3 08/10/23, 8.6 05/27/23, 7.2 02/19/23.- Microalb 607 12/09/22 Sees nephrology in [place] as above. Continue LANTUS 54 U QAM AND CONTINUE NOVOLOG 12 U BEFORE LUNCH MEAL (BIGGEST MEAL; novolog started last visit). Remain off Jardiance (was very expensive for pt). [id number] Aleja Montoya MD , [facility], [address] [place] [address] 02/15/2024 10:56:39 02/15/2024 11:27:27 Acute sialoadenitis 508751690 K11.21 Appears left sided sialoadeni tis:GFR 26: Rx for Augmentin 500-125 mg BID X7 days and suck on lemon lozenges.F /u on Wednesday and if any acutely worsening sxs, call right away/seek medical attention. I will order imaging with USN or CT if sxs not resolving as anticipate callie [id number] Aleja Montoya MD , [facility], [address] [place] [address] 02/21/2024 15:13:28 02/21/2024 15:35:01 Acute sialoadenitis 391874260 K11.21 MUCH IMPROVED:A ppears left sided sialoadeni tis:GFR 26: Rx for Augmentin 500-125 mg BID X7 days initially sent but pt does have intoleranc e to amoxicilli n so changed to Clindamyci n and tolerating well. Please finish abx and and suck on lemon lozenges.H as f/u with me in 2 weeks. If any acute worsening or if does not continue to resolve, I will order an USN. [id number] Aleja Montoya MD , [facility], [address] [place] [address] 03/06/2024 09:59:02 03/06/2024 10:47:16 Chronic kidney disease due to type 2 diabetes mellitus 4794172768 08 E11.22 N18.30 -Hgba1c 7.7 10/22/23, was 8.3 08/10/23, 8.6 05/27/23, 7.2 02/19/23.- Microalb 607 12/09/22 Sees nephrology in [place]- e exam 10/2023 in chart-Foot exam done today and pt's daughter will schedule podiatry appt for toenails-H gba1c POC done today, but was error so labs ordered. Continue LANTUS 54 U QAM AND CONTINUE NOVOLOG 12 U BEFORE LUNCH MEAL (BIGGEST MEAL; novolog started last visit). Remains off Jardiance (was very expensive for pt). Chronic ki dney disease stage 4 059354001 N18.4 STABLE:Cre at 1.9 12/06/23, was 1.8 10/22/23, was 1.7 08/10/23, 2.2 3PTH 123 10/22/23, was 261 07/01/23.V itamin D 38.4 10/22/23, was 20 08/10/23; on weekly high dose vitamin D, ordered by dr. montoya. Daughter will ensure she is taking.Nep hrology note 11/30/23 reviewed. Acute sialoadenitis 1097 46763 K11.21 RESOLVED: left sided sialoadeni tis:GFR 26: Rx for Augmentin 500-125 mg BID X7 days initially sent but pt does have intoleranc e to amoxicilli n so changed to Clindamyci n and tolerated well. Benign ess ential hypertension 0466990 I10 Stable: cont current regimen with metoprolol succinate ER 25 mg QD, lisinopril 10 mg QD (was decreased from 20 mg QD by nephrology ) Coronary arteriosclerosis 89976105 I25.10 Complex CAD medically managed with cardiology note 03/2023 reviewed.O n Repatha and Zetia with statin allergy; also plavix.Als o follows with vascular, Dr. Muñoz with h/o right CEA and know left carotid stenosis medically managed.H/ o CVA 2017. Echo 08/2023: EF 55-65%; moderate diastolic dysfunctio n; mild concentric LVH. [id number] Christel Parada MD Podiatry, [address] [address] 05/10/2024 08:22:59 05/10/2024 09:04:00 Increased blood pressure 69716935 R03.0 Your blood pressure was elevated today (higher than 140/90). Please follow up by scheduling an appointmen t in the Blood Pressure clinic within 2 weeks. 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 180116369 E11.59 Chronic ki dney disease stage 3 171962743 N18.30 Hypertrophy of nail 3065 4002 L60.2 [id number] Juarez Luke MD , [facility], [address] [place] [address] 07/10/2024 11:40:47 07/11/2024 09:40:22 Fatigue 69906417 R53.83 [id number] Christel Parada MD , [facility], [address] [place] [address] 07/24/2024 09:38:19 07/24/2024 17:30:01 Benign essential hypertension 9176186 I10 UNCONTROLL ED TODAY:BP taken multiple times by JENNIFER initially, then myself manually, and by nursing.In crease metoprolol succinate ER 25 mg QD to ER 50 mg QD, new rx sent and I wrote this down for pt's as well who sets up her pill box. Continue lisinopril 10 mg QD (was decreased from 20 mg QD by nephrology previously ).Pt's can check BP at home and f/ with new pcp here in 2 weeks for recheck.If any sxs of CP, SOB, h/a, seek medical attention right away please. Chronic ki dney disease due to type 2 diabetes mellitus 4854901591 08 E11.22 N18.30 -Hgba1c 8.3 07/10/24,w as 7.7 10/22/23, was 8.3 08/10/23, 8.6 05/27/23, 7.2 02/19/23.- Microalb 607 12/09/22 Sees nephrology in [place] and 05/01/24 nephrology note reviewed.- Eye exam 10/2023 in chart-Foot exam done UTD. Continue LANTUS 54 U QAM AND CONTINUE NOVOLOG 12 U BEFORE LUNCH MEAL (BIGGEST MEAL; novolog started last visit). Remains off Jardiance (was very expensive for pt). Hypothyroidism 69986172 E03.9 TSH 1.74 07/10/24; cont levothyrox ine 75 mcg QAM Coronary arteriosclerosis 94574388 I25.10 Complex CAD medically managed with cardiology note 03/2023 reviewed.O n Repatha and Zetia with statin allergy; also plavix.Als o follows with vascular, Dr. Muñoz with h/o right CEA and know left carotid stenosis medically managed.H/ o CVA 2017. Echo 08/2023: EF 55-65%; moderate diastolic dysfunctio n; mild concentric LVH. Urinary tr act infectious disease 90275802 N39.0 Pt seen in urgent care by Dr. Luke 07/10/24 for fatigue. Found to have a UTI and treated on 07/11/24 with nitrofuran toin. Pt is here with her , Vito, today. She feels well with no acute concerns.P t unable to give repeat urine sample today in office so give labeled specimen cup with plan to return later today or tomorrow. [id number] Christel Parada MD Podiatry, [facility] [address] [place] [address] 07/25/2024 11:58:47 07/25/2024 12:36:48 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 227018686 E11.59 Chronic ki dney disease stage 3 886944656 N18.30 Thickening of skin 96460 006 L85.1 [id number] Aleja Montoya MD , [facility], [address] [place] [address] 08/04/2024 10:09:25 08/04/2024 10:46:21 Benign essential hypertension 3828517 I10 BP today: elevatedho me measuremen ts: elevatedBP goal: <130/80dis cussed cardiovasc ular risk associated with chronic high BP with pt and ( manages pts meds)discu ssed nonpharmac ological ways of helping blood pressure - such as diet and lifestyle changesmet oprolol succinate recently increased to 50mg/day - continuecu rrently on lisinopril 10mg daily (was decreased from 20mg daily by nephrology ) - will not increase this medication as do not want to have negative affect on kidneyswil l add BP meds with caution as do not want to decrease kidney functionwi ll add low dose amlodipine discussed ADRsf/u in 2-3 weeks to reassess BP Chronic ki dney disease due to type 2 diabetes mellitus 1244917470 08 E11.22 N18.30 GFR 17.1 - decreaseda 1c 8.3 - decreasedf ollowed by nephrology in [facility] betic eye exam done Octiabet ic foot exam done Februaryontin ue LANTUS 54 U QAM AND CONTINUE NOVOLOG 12 U BEFORE LUNCH MEAL (BIGGEST MEAL; novolog started last visit). Remains off Jardiance (was very expensive for pt). [id number] Aleja Montoya MD , [facility], [address] [place] [address] 08/25/2024 16:33:15 08/28/2024 18:18:24 Benign essential hypertension 4647569 I10 BP today: elevated, repeat elevatedho me measuremen ts: elevatedBP goal: <130/80dis cussed cardiovasc ular risk associated with chronic high BP with pt and ( manages pts meds)discu ssed nonpharmac ological ways of helping blood pressure - such as diet and lifestyle changesmet oprolol succinate recently increased to 50mg/day - continuecu rrently on lisinopril 10mg daily (was decreased from 20mg daily by nephrology ) - will not increase this medication as do not want to have negative affect on kidneyswil l add BP meds with caution as do not want to decrease kidney functionin crease amlodipine to 10mg/day from 5mg/dayadv ised to take BP at home daily and to bring BP log into next office visit, advised to bring BP machine to next visit to ensure accuracyf/ u in 2-3 weeks to reassess BP Chronic ki dney disease due to type 2 diabetes mellitus 5735323093 08 E11.22 N18.30 GFR 17.1 - decreaseda 1c 8.3 - decreasedf ollowed by nephrology in [facility] betic eye exam done Octiabet ic foot exam done Februaryontin ue LANTUS 54 U QAM AND CONTINUE NOVOLOG 12 U BEFORE LUNCH MEAL (BIGGEST MEAL; novolog started last visit). Remains off Jardiance (was very expensive for pt) Hypertensive urgency 443 211116 I16.0 164/66 [id number]/ 75 automative BP cuffdiscus sed this elevated BP is a medical emergency and puts the pt at increased cardiovasc ular riskdeclin ed ER eval, prefer to trial the new BP medication and monitor at homediscus sed ER precaution s, pt in agreementf /u in 2-3 weeks [id number] Aleja Montoya MD , [facility], [address] [place] [address] 09/15/2024 11:33:55 09/18/2024 15:05:25 Benign essential hypertension 2181337 I10 BP today: elevated, repeat elevatedho me measuremen ts: elevated - scanned into chartBP goal: <130/80dis cussed cardiovasc ular risk associated with chronic high BP with pt and ( manages pts meds)discu ssed nonpharmac ological ways of helping blood pressure - such as diet and lifestyle changescur rently on lisinopril 10mg daily (was decreased from 20mg daily by nephrology ) - will not increase this medication as do not want to have negative affect on kidneys - see belowamlod ipine increased to 10mg/day at least OV - some positive effectwill increase metoprolol to 100mg/yo dvised to take BP at home daily and to bring BP log into next office visit, advised to bring BP machine to next visit to ensure accuracyf/ u in 2-3 weeks to reassess BP Chronic ki dney disease due to type 2 diabetes mellitus 3051299123 08 E11.22 N18.30 GFR 17.1 - decreaseda 1c 8.3 - decreasedf ollowed by nephrology in [facility] betic eye exam done Octiabet ic foot exam done Februaryontin ue current regimen [id number] Christel Parada MD Podiatry, [address] [address] 10/11/2024 09:24:01 10/11/2024 09:56:59 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 370801272 E11.59 Chronic ki dney disease stage 3 450990156 N18.30 Thickening of skin 71387 006 L85.1 [id number] Aleja Montoya MD , [facility], [address] [place] [address] 10/24/2024 10:06:17 10/24/2024 11:12:32 Benign essential hypertension 9019428 I10 BP today: at goal!home measuremen ts: at goalBP goal: <140/80dis cussed nonpharmac ological ways of helping blood pressure - such as diet and lifestyle changescur rently on lisinopril 10mg daily (was decreased from 20mg daily by nephrology )amlodipin e increased to 10mg/dayme toprolol increased to 100mg/dayn ew addition:h ydralazine 25mg TID - added by nephrology manages pts medscontin ue monitoring BP at homef/u 3 mo Vitamin D deficiency 347 98649 E55.9 recent labs show vitamin d level of 46.8, may discontinu e vitamin D supplement at this time [id number] Aleja Montoya MD , [facility], [address] [place] [address] 01/18/2025 10:07:42 01/18/2025 10:44:34 Benign essential hypertension 1556880 I10 BP today: at goalhome measuremen ts: at goalBP goal: <140/80dis cussed nonpharmac ological ways of helping blood pressure - such as diet and lifestyle changescur rently on lisinopril 10mg daily (was decreased from 20mg daily by nephrology ) manages pts medscontin ue monitoring BP at homecont current regimenf/u 3 months with new PCP Chronic ki dney disease due to type 2 diabetes mellitus 9951087835 08 E11.22 N18.30 a1c 7.5% - decreasedf ollowed by nephrology in [facility] betic eye exam done Octiabet ic foot exam done Februaryontin ue current regimen Gout 73325294 M10.9 no recent flaresprov iding refills [id number] Christel Parada MD Podiatry, [address] [address] 01/23/2025 09:04:28 01/23/2025 10:40:59 Increased blood pressure 58528528 R03.0 Your blood pressure was elevated today (higher than 140/90). Please follow up by scheduling an appointmen t in the Blood Pressure clinic within 2 weeks. 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 472854593 E11.59 Chronic ki dney disease stage 3 812315126 N18.30 Hypertrophy of nail 3065 4002 L60.2 [id number] DO FROYLAN Rider, [facility], [address] [place] [address] 04/19/2025 09:51:56 04/20/2025 14:05:17 Benign essential hypertension 2590075 I10 Hypertensi onHyperten percy well-manag ed with current regimen.- Continue metoprolol , lisinopril , hydralazin e, amlodipine .- Monitor blood pressure regularly. Chronic ki dney disease stage 4 288089545 N18.4 Chronic kidney diseaseChr onic kidney disease with regular nephrology follow-ups . GR stable in 20s- Continue nephrology -prescribe d medication s.- Follow up with nephrology in April and July. Type 2 lexa betes mellitus 89471681 E11.21 Type 2 diabetes mellitus with insulin useType 2 diabetes mellitus managed with insulin. Blood glucose levels mostly stable with occasional hypoglycem ia and hyperglyce kathryn. A1c well-contr olled at 7.1%.- Continue insulin: 54 units Lantus AM, 15 units Humalog before lunch.- Monitor blood glucose daily, focus on AM readings.- Consider continuous glucose monitor . Does not have a smartphone .- Educated on hypoglycem ia management . Postmenopausal state 764 02363 Z78.0 Cerebrovas cular accident 667464090 I63.9 No recent events Carotid ar mateo stenosis 60758821 I65.29 Hyperlipid emiaHyperl ipidemia managed with Repatha and ezetimibe. - Continue Repatha biweekly and ezetimibe daily.- Follow up with cardiology as scheduled. Gout 71217689 M10.9 GoutGout with no recent flares, managed with allopurino l.- Continue allopurino l every other day. 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 Hypothyroidism 59054859 E03.9 Hypothyroi dismHypoth yroidism managed with levothyrox ine.- Continue levothyrox ine daily. [id number] Christel Parada MD Podiatry, [address] [address] 05/08/2025 08:07:05 05/08/2025 08:41:33 Increased blood pressure 78601376 R03.0 Your blood pressure was elevated today (higher than 140/90). Please follow up by scheduling an appointmen t in the Blood Pressure clinic within 2 weeks. 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 302292569 E11.59 Chronic ki dney disease stage 3 225533300 N18.30 Hypertrophy of nail 3065 4002 L60.2 Health Concerns Section Related Observation LastModified by Organization Detai ls LastModified Time None Recorded Concern Status LastModified by Organization Details LastModified Time None Recorded Advance Directives Directive None Recorded Payers Insurance Date Sequence Insurance Name Policy Number Policy Crow Covered Member ID Crow Member ID Guarantor Name 07/10/2024 [facility] [employer] Elyssa Burns 05/16/2025 1 [employer] MEDICARE ADVANTAGE PLAN (MEDICARE REPLACEMENT HMO) [id number] Elyssa Burns [id number] Elyssa Burns 07/10/2024 [employer] Elyssa M Grant [id number] Elyssa M Hamlin 07/10/2024 1 [facility] Elyssa Oquendo Grant [id number] Elyssa M Grant 11/18/2004 1 [employer] [place] [employer] [place] [id number] Ronni Hernandezlogg [id number] Elyssa M Hamlin 11/24/2004 1 [employer] [place] [employer] [place] [employer] [place] (PPO[place] [id number] Ronni Grant [id number] Elyssa M Grant 11/06/2005 1 [employer] [place] [employer] [place] [employer] [place]PPO[place] [id number] Ronni Hamlin [id number] Elyssa M Hamlin 12/01/2006 1 [place] [facility] BLUE VALUE PLUS (HMO) [id number] Ronni Hernandezlogg [id number] Elyssa Azra Grant 02/22/2007 1 [facility] (O) [id number] Ronni Hernandezlogg [id number] Elyssa M Grant 07/10/2024 2 [place] NATIONAL [place]MENT [place] Elyssa Hernandezlogg [id number] Elyssa Azra Hamlin 07/10/2024 1 [place] (MEDICARE REPLACEMENT HMO) [id number] Elyssasa Azra Hernandezlogg [id number] Elyssa Azra Grant 07/10/2024 [employer] Elyssasa Azra Hernandezlogg [id number] Elyssasa Azra Hernandezlogg 07/24/2024 [employer] - [employer] [place] Elyssa Hernandezlogg [id number] Elyssa M Grant 07/10/2024 2 [place]: NATIONAL G[employer]ERNMENT SERVICES Elyssa Hernandezlogg [id number] Elyssa Burns OBGyn Episode No OBEpisode recorded.
--- OUTSIDE RECORDS SUMMARY | 2025-05-21 15:24 | XMS_ITS | Clinical Summary ---
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 Role Phone Unknown Primary Care Provider Unavailabl e Social History Tobacco Use Types Packs/Day Years Used Date Smoking Tobacco: Never Assessed Comments Unknown Sex and Gender Information Value Date Recorded Sex Assigned at Not on file Legal Sex Female 7:20 AM EST Gender Identity Not on file Sexual Orientation Not on file Plan of Treatment Health Maintenance Due Date Last Done Comments Tetanus/Diphtheria/Pertussis Vaccines (1 - Tdap) 03/11 Pneumoccocal Vaccine: 50+ (1 of 1 - PCV) 1992 Zoster vaccine (1 of 2) 1992 Advance Directive 1997 Bone Density Scan 2007 RSV Vaccine (1 - 1-dose 75+ series) 2017 Covid-19 Vaccine (1 - season) 2024 Influenza (Flu) vaccine (1 o f 1 - Influenza standard series) 06/25/2025 Care Teams 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
== END 2025-05-21 15:11 | disposition home or self-care (01) ==
LOC: HO.HKA 14:50
PROVIDERS: PCP Physician Assistant; Visit Provider Internal Medicine Hypertension Specialist
DX: N18.9 Chronic kidney disease, unspecified (principal)
CPT/HCPCS: 99214

== ENCOUNTER → 2025-05-21 14:49 | Outpatient (BNVA) | payer MEDICARE, SELFPAY | PROVIDERS: PCP Physician Assistant; Visit Provider Internal Medicine Hypertension Specialist | DX: N18.30 Chronic kidney disease, stage 3 unspecified (principal); I10 Essential (primary) hypertension; E11.9 Type 2 diabetes mellitus without complications | CPT/HCPCS: 99212 ==